=== PATIENT | male | born 1955 | race Caucasian/White ===

== ENCOUNTER 2017-12-29 06:55 | Day surgery (SDC) | END 2017-12-29 16:16 | disposition home or self-care (01) ==

== ENCOUNTER 2018-03-21 13:10 | Day surgery (SDC) | END 2018-03-21 17:08 | disposition home or self-care (01) ==

== ENCOUNTER 2018-06-05 22:42 | Inpatient (IN) | payer BC ==
[~2018-06-05] VITALS: Ht 165.1 cm; Wt 69.2 kg
[2018-06-05 22:34] VITALS: PULSE 92
[~2018-06-05 22:42] MED LIST: AMLO2.5T78 PO; ASPI81TA52 PO; ATOR20TA38 PO; GEMF600T8 PO; INSU300I SQ; ISM20 PO; MESA800T2 PO; METO-336 PO; METO10PO MC; PANT40TA3 PO
[2018-06-05 22:45] VITALS: BP 146/65; PULSE 89; RESP 18
[2018-06-05 23:06] VITALS: Ht 165.1 cm; Wt 69.2 kg
[2018-06-05] MEDS ORDERED: morphine 4 MG/ML VIAL IV STA (23:52)
--- NOTE | 2018-06-05 23:56 | HP ---
Date/Time of Note Date/Time of Note DATE: 06/05/18 TIME: 23:56 Assessment/Plan VTE Prophylaxis SCD applied (from Nsg): Yes Pharmacological prophylaxis: NA/contraindicated Pharm contraindication: other (Patient was exacerbation of ulcerative colitis. No blood thinner for now given the risk of bleeding) Assessment/Plan Assessment/Plan 1. Abdominal pain, diarrhea and vomiting, most likely secondary to UC flare-up -Keep n.p.o. with IV fluid. Patient however constantly asking to eat saying hungry -Empirically start IV antibiotic -Continue mesalamine -CT at outside facility as mentioned in the HPI. Will consult GI for colonoscopy 2. CAD with CABG: Continue home meds 3. Hypertension: BP was in acceptable range. Continue home meds when no longer n.p.o. 4. History of large hemorrhoid: No rectal bleed HPI/ROS Admit Date/Time Admit Date/Time Jun 05, 2018 at 22:43 Hx of Present Illness This is a 63-year-old male with a history of hypertension, CAD with CABG, ulcerative colitis, large fibroid who initially presented to [facility] complaining of abdominal pain, diarrhea and vomiting for about 1 week. Diarrhea is watery for the most part and is nonbloody. At the outside facility CT shows marked irregular thickening of the proximal and mid ascending colon as well as enlarged mesenteric lymph nodes no findings suspicious for neoplasm. Lab shows hypokalemia and hemoglobin of 11.8 otherwise CBC and CMP including liver chemistries and lipase WNL. Patient was transferred to [facility] for insurance reasons. PMH/Family/Social Past Medical History Medical History: other (See HPI) Medications Current Medications Morphine Sulfate (morphine) 3 mg ONCE STAT IV ; Start 06/05/18 at 23:52; Stop 06/05/18 at 23:53; Status UNV Coded Allergies: No Known Allergy (Unverified , 03/21/18) Past Surgical History Past Surgical Hx: other (HPI) Family History Significant Family History: no pertinent family hx Social History Alcohol Use: other Smoking Status: Former smoker Drug Use: none Exam/Review of Systems Vital Signs Vitals Vital Signs Date Temp Pulse Resp B/P (MAP) Pulse Ox O2 O2 Flow FiO2 Time Delivery Rate 06/05/18 92 22:34 Exam Constitutional: other (No acute distress) Head: normocephalic, atraumatic Eyes: PERRL Respiratory: clear to auscultation, normal air movement Cardiovascular: regular rate and rhythm, nl pulses Gastrointestinal: soft, other Extremities: normal pulses PATRICK KHAN MD Jun 05, 2018 23:56
[2018-06-06] VITALS (12 sets, daily range): BP systolic 98–133; BP diastolic 52–62; PULSE 63–95; RESP 16–79
[2018-06-06] MEDS ORDERED: HYDROCODONE/APAP (5/325) TAB PO PRN
[2018-06-06] MEDS ORDERED: ONDANSETRON 4 MG INJ IV PRN
[2018-06-06] MEDS ORDERED: ACETAMINOPHEN 325 MG TAB PO PRN
[2018-06-06] MEDS ORDERED: NACL 0.9% 3 ML SYG IV SCH
[2018-06-06] MEDS ORDERED: GLUCOSE GEL 15 GRAM TUBE BUCCAL PRN (00:30)
[2018-06-06] MEDS ORDERED: DEXTROSE 50% 50 ML SYRINGE IV PRN ×2 (00:30)
[2018-06-06] MEDS ORDERED: GLUCAGON 1 MG INJ IM PRN (00:30)
[2018-06-06] MEDS ORDERED: GLUCOSE GEL 15 GRAM TUBE PO PRN ×2 (00:30)
[2018-06-06] MEDS: ACCU-CHEK XX SCH (01:47)
[2018-06-06] MEDS ORDERED: POTASSIUM CHLORIDE (SR) 20 MEQ TAB PO STA (02:19)
--- NOTE | 2018-06-06 07:00 | NUR ---
RN END OF SHIFT NOTE PATIENT ALERT AND ORIENTED X 4, PAIN CONTROLLED WITH MORPHINE 3MG IVP X 1, AMBULATORY WITH STEADY GAIT. PATIENT HAD 4 BOWEL MOVEMENTS ON MY SHIFT, PLACED IN ISOLATION TO R/O C-DIFF. BED IN THE LOWEST POSITION WITH BRAKES ENGAGED. HOURLY ROUNDING AND BED ALARM IN PLACE. ENDORSED TO DAY SHIFT RN.
[2018-06-06] MEDS: INSULIN ASPART [NOVOLOG] 3 ML PEN SC SCH ×4 (08:00→21:34)
[2018-06-06] MEDS: AMLODIPINE 2.5 MG TAB PO SCH (08:37)
[2018-06-06] MEDS: ISOSORBIDE MONONITRATE 20 MG TAB PO SCH (08:37)
[2018-06-06] MEDS: GEMFIBROZIL 600 MG TAB PO SCH ×2 (08:38→21:25)
[2018-06-06] MEDS: METOPROLOL (XL) 100 MG TAB PO SCH (08:38)
[2018-06-06] MEDS: ASPIRIN (EC) 81 MG TAB PO SCH (08:38)
[2018-06-06] MEDS ORDERED: FAMOTIDINE 20 MG INJ IV SCH (09:00)
--- NOTE | 2018-06-06 11:41 | PN ---
Date/Time of Note Date/Time of Note DATE: 06/06/18 TIME: 11:41 Assessment/Plan VTE Prophylaxis Risk score (from Ns)>0 risk: 3 SCD applied (from Ns): No SCD contraindicated: other Pharmacological prophylaxis: other Lines/Catheters IV [facility]from [facility] [place] Assessment/Plan Hospital Course SUBJECTIVE: Complains of minimal abdominal pain. OBJECTIVE: Physical Exam General: Adequately build 63 year-old male lying in bed in no apparent distress. HEENT: Normocephalic, atraumatic. Eyes: Anicteric sclerae, conjunctivae clear. ENT: Nasal septum midline, oral mucosa moist. Neck supple, no JVD noticed. Respiratory: Bilaterally clear breath sounds. No use of accessory muscles of respiration. No adventitious breath sounds. Cardiovascular: S1, S2 heard. Regular rate and rhythm. Abdomen: Soft, nontender, and nondistended. Bowel sounds positive in all 4 quadrants. Genitourinary: Deferred. Extremities: No cyanosis, no clubbing, no edema. Peripheral pulses palpable. Neurologic: Cranial nerves II through XII grossly intact. The patient is awake, alert, and oriented. Skin: Normal skin turgor. No skin rashes. Labs & Vitals per chart ASSESSMENT & PLAN This is a 63-year-old male with comorbidities including hypertension, CAD status post CABG, ulcerative colitis, and diabetes mellitus, who came to the emergency room with chief complaint of abdominal pain, diarrhea, and vomiting for 1 week. The patient was evaluated at an outside emergency room with a CT scan that showed markedly irregular thickening of the proximal and mid ascending colon as well as enlarged mesenteric lymph nodes. The patient was transferred to [facility] for further evaluation because of insurance reasons. 1. Abdominal pain. -Most probably secondary to underlying UC flareup. -Continue mesalamine. -Start steroids. -Gastroenterology evaluation. 2. Essential hypertension. -Continue antihypertensives. 3. Diabetes mellitus. -Hemoglobin A1c 6.1. -Continue sliding scale insulin. 4. History of CAD. -Continue aspirin. 5. Dyslipidemia. -Continue statin and fibrates. 6. Anemia. -Microcytic and hypochromic. -Obtain iron panel. 7. Fluids, electrolytes, and nutrition. -Carbohydrate controlled diet. 8. DVT prophylaxis. -Bilateral SCDs. 9. Plan. -Continue current management. -Await clinical improvement. -Await gastroenterology evaluation. Patient was seen in collaboration with Dr. Fuentes. Result Diagram: 06/06/18 0044 06/06/18 0044 Results 24hrs Laboratory Tests Test 06/06/18 00:44 06/06/18 01:46 06/06/18 08:00 06/06/18 11:31 White Blood Count 6.5 Red Blood Count 4.61 L Hemoglobin 10.2 L Hematocrit 32.8 L Mean Corpuscular 71.1 L Volume Mean Corpuscular 22.1 L Hemoglobin Mean Corpuscular 31.1 L Hemoglobin Concent Red Cell 16.7 H Distribution Width Platelet Count 101 L Mean Platelet Volume 10.5 H Immature 1.200 H Granulocytes % Neutrophils % 62.7 Lymphocytes % 22.2 Monocytes % 12.0 H Eosinophils % 1.4 Basophils % 0.5 Nucleated Red Blood 0.0 Cells % Immature 0.080 H Granulocytes # Neutrophils # 4.1 Lymphocytes # 1.5 Monocytes # 0.8 Eosinophils # 0.1 Basophils # 0.0 Nucleated Red Blood 0.0 Cells # Sodium Level 136 Potassium Level 3.2 L Chloride Level 103 Carbon Dioxide Level 20 L Anion Gap 13 Blood Urea Nitrogen 14 Creatinine 0.77 Est Glomerular > 60 Filtrat Rate mL/min Glucose Level 89 Hemoglobin A1c 6.1 H Calcium Level 8.4 Total Bilirubin 0.2 Direct Bilirubin 0.00 Indirect Bilirubin 0.2 Aspartate Amino 14 L Transf (AST/SGOT) Alanine 17 Aminotransferase (AL T/SGPT) Alkaline Phosphatase 108 Total Protein 6.8 Albumin 3.4 Globulin 3.40 H Albumin/Globulin 1.00 Ratio Lipase 156 Bedside Glucose 92 131 119 Exam/Review of Systems Vital Signs Vitals Vital Signs Date Temp Pulse Resp B/P (MAP) Pulse Ox O2 O2 Flow FiO2 Time Delivery Rate 06/06/18 80 08:00 06/06/18 97.7 79 119/62 96 Room Air 07:51 (81) Intake and Output 06/05/18 06/05/18 06/06/18 1515:00 23:00 07:00 IntakeIntake Total 500 ml BalanceBalance 500 ml Medications Medications Current Medications IV Flush (NS 3 ml) 3 ml PER PROTOCOL IV ; Start 06/06/18 at 00:00 Ondansetron HCl (Zofran Inj) 4 mg Q6H PRN IV NAUSEA AND/OR VOMITING; Start 06/06/18 at 00:00 Acetaminophen (Tylenol Tab) 650 mg Q6H PRN PO PAIN LEVEL 1-3 OR FEVER; Start 06/06/18 at 00:00 Acetaminophen/ Hydrocodone Bitart ([place] (5/325)) 1 tab Q6H PRN PO PAIN LEVEL 4-6; Start 06/06/18 at 00:00 Acetaminophen/ Hydrocodone Bitart ([place] (5/325)) 2 tab Q6H PRN PO PAIN LEVEL 7-10; Start 06/06/18 at 00:00 Amlodipine Besylate (Norvasc) 2.5 mg DAILY PO Last administered on 06/06/18at 08:37; Admin Dose 2.5 MG; Start 06/06/18 at 09:00 Aspirin (Halfprin) 81 mg DAILY PO Last administered on 06/06/18at 08:38; Admin Dose 81 MG; Start 06/06/18 at 09:00 Atorvastatin Calcium (Lipitor) 20 mg QHS PO ; Start 06/06/18 at 21:00 Gemfibrozil (Lopid) 600 mg BID PO Last administered on 06/06/18at 08:38; Admin Dose 600 MG; Start 06/06/18 at 09:00 Isosorbide Mononitrate (Ismo) 20 mg DAILY PO Last administered on 06/06/18at 08:37; Admin Dose 20 MG; Start 06/06/18 at 09:00 Metoprolol Succinate (Toprol Xl) 100 mg DAILY PO Last administered on 06/06/18at 08:38; Admin Dose 100 MG; Start 06/06/18 at 09:00 Diagnostic Test (Pha) (Accu-Chek) 1 ea 02 XX Last administered on 06/06/18at 01:47; Admin Dose 1 EA; Start 06/06/18 at 02:00 Insulin Aspart (Novolog Insulin Pen) NOVOLOG *MILD* ALGORITHM WITH MEALS BEDTIME SC ; Start 06/06/18 at 08:00 Miscellaneous Information 1 ea NOTE XX ; Start 06/06/18 at 00:30 Glucose (Glutose) 15 gm Q15M PRN PO DECREASED GLUCOSE; Start 06/06/18 at 00:30 Glucose (Glutose) 22.5 gm Q15M PRN PO DECREASED GLUCOSE; Start 06/06/18 at 00:30 Dextrose (D50w Syringe) 25 ml Q15M PRN IV DECREASED GLUCOSE; Start 06/06/18 at 00:30 Dextrose (D50w Syringe) 50 ml Q15M PRN IV DECREASED GLUCOSE; Start 06/06/18 at 00:30 Glucagon (Glucagen) 1 mg Q15M PRN IM DECREASED GLUCOSE; Start 06/06/18 at 00:30 Glucose (Glutose) 15 gm Q15M PRN BUCCAL DECREASED GLUCOSE; Start 06/06/18 at 00:30 REILLY PANTOJA NP Jun 06, 2018 11:41
--- NOTE | 2018-06-06 12:50 | CONS ---
Date/Time of Note Date/Time of Note DATE: 06/06/18 TIME: 12:50 Assessment/Plan Assessment/Plan Hospital Course Summary Assessment and Plan: Assessment: UC- flare vs other -CDIFF neg Acute on chronic nausea/vomiting CAD HTN DM History of EGD/colonoscopy 04/03- at [facility]- reports in system History of Gastroparesis Plan: Will order CEA, CRP, ESR Patient has been started on Steroid therapy Restart mesalamine Diet as tolerated Further recommendations based on clinical course Currently no plan to repeat colonoscopy. Anti-emetic meds as needed Patient seen in collaboration with Dr. Sarabia Result Diagram: 06/06/18 0044 06/06/18 0044 Results 24hrs Laboratory Tests Test 06/06/18 00:44 06/06/18 01:46 06/06/18 08:00 06/06/18 11:31 White Blood Count 6.5 Red Blood Count 4.61 L Hemoglobin 10.2 L Hematocrit 32.8 L Mean Corpuscular 71.1 L Volume Mean Corpuscular 22.1 L Hemoglobin Mean Corpuscular 31.1 L Hemoglobin Concent Red Cell 16.7 H Distribution Width Platelet Count 101 L Mean Platelet Volume 10.5 H Immature 1.200 H Granulocytes % Neutrophils % 62.7 Lymphocytes % 22.2 Monocytes % 12.0 H Eosinophils % 1.4 Basophils % 0.5 Nucleated Red Blood 0.0 Cells % Immature 0.080 H Granulocytes # Neutrophils # 4.1 Lymphocytes # 1.5 Monocytes # 0.8 Eosinophils # 0.1 Basophils # 0.0 Nucleated Red Blood 0.0 Cells # Sodium Level 136 Potassium Level 3.2 L Chloride Level 103 Carbon Dioxide Level 20 L Anion Gap 13 Blood Urea Nitrogen 14 Creatinine 0.77 Est Glomerular > 60 Filtrat Rate mL/min Glucose Level 89 Hemoglobin A1c 6.1 H Calcium Level 8.4 Total Bilirubin 0.2 Direct Bilirubin 0.00 Indirect Bilirubin 0.2 Aspartate Amino 14 L Transf (AST/SGOT) Alanine 17 Aminotransferase (AL T/SGPT) Alkaline Phosphatase 108 Total Protein 6.8 Albumin 3.4 Globulin 3.40 H Albumin/Globulin 1.00 Ratio Lipase 156 Bedside Glucose 92 131 119 CC: MIRI SARABIA ; Consultation Date/Type/Reason Admit Date/Time Jun 05, 2018 at 22:43 Date of Consultation: Jun 06, 2018 Type of Consult GI Reason for Consultation Diarrhea Hx of Present Illness This a 63-year-old male past medical history of coronary artery disease, hypertension, diabetes who presented to [facility] with complaints of vomiting and diarrhea x6 days at that time he denied any abdominal pain. CT abdomen/pelvis without contrast was obtained at [facility] showing marked irregular thickening of the wall the proximal and mid ascending colon, enlarged mesenteric nodes are seen along the ascending mesocolon as well as centrally within the mesentery these findings are suspicious for neoplasm. #1 seen stable patient was transferred to [facility] for insurance reasons. He is status post EGD 03/21/18 showing gastroparesis with re tained partial digested food in the stomach, moderate gastritis biopsies obtained were negative for H. pylori biopsies are copied down below . Also status post colonoscopy 03/21/18 showing moderately active left-sided ulcerative colitis, one similar flat polypoid area in the proximal rectum biopsies were obtained, moderate-sized internal hemorrhoids gastric biopsy showed gastritis without dysplasia, or malignancy, Gram stain is negative for H. pylori. Right colon biopsy is histopathologically unremarkable. Left colon biopsy shows mild to moderate active colitis focal summary histomorphologic features suggestive of chronic disease means are considered most suggestive of active ulcerative co litis, no evidence for associated mucosal dysplasia or malignancy. Rectum biopsy shows mild active proctocolitis with established histomorphologic findings of IBD, rectum polyp biopsy shows inflammatory type polyp without evidence of dysplasia or malignancy. Currently patient continues to have 6+ episodes of diarrhea per day, nausea has improved however this is more of a chronic issue given history of gastroparesis we would consider starting Reglan however the side effect of diarrhea will hold off at this time. Been started on steroid therapy we will continue current regimen and assess need to make changes per clinical course.. Review of Systems: A 12 system, review was conducted and is negative except as noted in the HPI or here. Past Medical History Medical History: other (See HPI) Medications Current Medications IV Flush (NS 3 ml) 3 ml PER PROTOCOL IV ; Start 06/06/18 at 00:00 Ondansetron HCl (Zofran Inj) 4 mg Q6H PRN IV NAUSEA AND/OR VOMITING; Start 06/06/18 at 00:00 Acetaminophen (Tylenol Tab) 650 mg Q6H PRN PO PAIN LEVEL 1-3 OR FEVER; Start 06/06/18 at 00:00 Acetaminophen/ Hydrocodone Bitart ([place] (5/325)) 1 tab Q6H PRN PO PAIN LEVEL 4-6; Start 06/06/18 at 00:00 Acetaminophen/ Hydrocodone Bitart ([place] (5/325)) 2 tab Q6H PRN PO PAIN LEVEL 7-10; Start 06/06/18 at 00:00 Amlodipine Besylate (Norvasc) 2.5 mg DAILY PO Last administered on 06/06/18at 08:37; Admin Dose 2.5 MG; Start 06/06/18 at 09:00 Aspirin (Halfprin) 81 mg DAILY PO Last administered on 06/06/18at 08:38; Admin Dose 81 MG; Start 06/06/18 at 09:00 Atorvastatin Calcium (Lipitor) 20 mg QHS PO ; Start 06/06/18 at 21:00 Gemfibrozil (Lopid) 600 mg BID PO Last administered on 06/06/18at 08:38; Admin Dose 600 MG; Start 06/06/18 at 09:00 Isosorbide Mononitrate (Ismo) 20 mg DAILY PO Last administered on 06/06/18at 08:37; Admin Dose 20 MG; Start 06/06/18 at 09:00 Metoprolol Succinate (Toprol Xl) 100 mg DAILY PO Last administered on 06/06/18at 08:38; Admin Dose 100 MG; Start 06/06/18 at 09:00 Diagnostic Test (Pha) (Accu-Chek) 1 ea 02 XX Last administered on 06/06/18at 01:47; Admin Dose 1 EA; Start 06/06/18 at 02:00 Insulin Aspart (Novolog Insulin Pen) NOVOLOG *MILD* ALGORITHM WITH MEALS BEDTIME SC ; Start 06/06/18 at 08:00 Miscellaneous Information 1 ea NOTE XX ; Start 06/06/18 at 00:30 Glucose (Glutose) 15 gm Q15M PRN PO DECREASED GLUCOSE; Start 06/06/18 at 00:30 Glucose (Glutose) 22.5 gm Q15M PRN PO DECREASED GLUCOSE; Start 06/06/18 at 00:30 Dextrose (D50w Syringe) 25 ml Q15M PRN IV DECREASED GLUCOSE; Start 06/06/18 at 00:30 Dextrose (D50w Syringe) 50 ml Q15M PRN IV DECREASED GLUCOSE; Start 06/06/18 at 00:30 Glucagon (Glucagen) 1 mg Q15M PRN IM DECREASED GLUCOSE; Start 06/06/18 at 00:30 Glucose (Glutose) 15 gm Q15M PRN BUCCAL DECREASED GLUCOSE; Start 06/06/18 at 00:30 Methylprednisolone Sodium Succinate (Solu-Medrol) 20 mg Q8 IV ; Start 06/06/18 at 14:00 Pantoprazole (Protonix Tab) 40 mg BID@06,18 PO ; Start 06/06/18 at 18:00 Allergies: Coded Allergies: No Known Allergy (Unverified , 03/21/18) Past Surgical History Past Surgical Hx: other (HPI) Social History Alcohol Use: other Smoking Status: Former smoker Drug Use: none Exam/Review of Systems Vital Signs Vitals Vital Signs Date Temp Pulse Resp B/P (MAP) Pulse Ox O2 O2 Flow FiO2 Time Delivery Rate 06/06/18 80 12:00 06/06/18 98.2 16 110/56 96 Room Air 11:41 (74) Intake and Output 06/05/18 06/05/18 06/06/18 1515:00 23:00 07:00 IntakeIntake Total 500 ml BalanceBalance 500 ml Exam PHYSICAL EXAMINATION: GENERAL: Well developed, well nourished, alert & oriented x 3, in no acute distress SKIN: No lesions EYES: Pupils equal reactive to light, no discharge. EARS/NOSE AND THROAT: Ears normal, nose normal, oropharynx normal NECK: Supple, no masses CHEST: Inspection within normal limits. CARDIOVASCULAR: Heart: Regular rate and rhythm RESPIRATORY: Lungs clear to auscultation GASTROINTESTINAL AND LIVER: Abdomen: Soft, non tenderness, non-distended, no hernias, no masses, no organomegaly, no ascites, no guarding, no rebound tenderness, normoactive bowel sounds. Rectal: Deferred. GENITOURINARY: Not examined Medications Medications Current Medications IV Flush (NS 3 ml) 3 ml PER PROTOCOL IV ; Start 06/06/18 at 00:00 Ondansetron HCl (Zofran Inj) 4 mg Q6H PRN IV NAUSEA AND/OR VOMITING; Start 06/06/18 at 00:00 Acetaminophen (Tylenol Tab) 650 mg Q6H PRN PO PAIN LEVEL 1-3 OR FEVER; Start 06/06/18 at 00:00 Acetaminophen/ Hydrocodone Bitart ([place] (5/325)) 1 tab Q6H PRN PO PAIN LEVEL 4-6; Start 06/06/18 at 00:00 Acetaminophen/ Hydrocodone Bitart ([place] (5/325)) 2 tab Q6H PRN PO PAIN LEVEL 7-10; Start 06/06/18 at 00:00 Amlodipine Besylate (Norvasc) 2.5 mg DAILY PO Last administered on 06/06/18at 08 :37; Admin Dose 2.5 MG; Start 06/06/18 at 09:00 Aspirin (Halfprin) 81 mg DAILY PO Last administered on 06/06/18at 08:38; Admin Dose 81 MG; Start 06/06/18 at 09:00 Atorvastatin Calcium (Lipitor) 20 mg QHS PO ; Start 06/06/18 at 21:00 Gemfibrozil (Lopid) 600 mg BID PO Last administered on 06/06/18at 08:38; Admin Dose 600 MG; Start 06/06/18 at 09:00 Isosorbide Mononitrate (Ismo) 20 mg DAILY PO Last administered on 06/06/18at 08:37; Admin Dose 20 MG; Start 06/06/18 at 09:00 Metoprolol Succinate (Toprol Xl) 100 mg DAILY PO Last administered on 06/06/18at 08:38; Admin Dose 100 MG; Start 06/06/18 at 09:00 Diagnostic Test (Pha) (Accu-Chek) 1 ea 02 XX Last administered on 06/06/18at 01:47; Admin Dose 1 EA; Start 06/06/18 at 02:00 Insulin Aspart (Novolog Insulin Pen) NOVOLOG *MILD* ALGORITHM WITH MEALS BEDTIME SC ; Start 06/06/18 at 08:00 Miscellaneous Information 1 ea NOTE XX ; Start 06/06/18 at 00:30 Glucose (Glutose) 15 gm Q15M PRN PO DECREASED GLUCOSE; Start 06/06/18 at 00:30 Glucose (Glutose) 22.5 gm Q15M PRN PO DECREASED GLUCOSE; Start 06/06/18 at 00:30 Dextrose (D50w Syringe) 25 ml Q15M PRN IV DECREASED GLUCOSE; Start 06/06/18 at 00:30 Dextrose (D50w Syringe) 50 ml Q15M PRN IV DECREASED GLUCOSE; Start 06/06/18 at 00:30 Glucagon (Glucagen) 1 mg Q15M PRN IM DECREASED GLUCOSE; Start 06/06/18 at 00:30 Glucose (Glutose) 15 gm Q15M PRN BUCCAL DECREASED GLUCOSE; Start 06/06/18 at 00:30 Methylprednisolone Sodium Succinate (Solu-Medrol) 20 mg Q8 IV ; Start 06/06/18 at 14:00 Pantoprazole (Protonix Tab) 40 mg BID@06,18 PO ; Start 06/06/18 at 18:00 DAREN MCKNIGHT Jun 06, 2018 12:50
[2018-06-06] MEDS: METHYLPREDNISOLONE 40 MG INJ IV SCH ×2 (13:23→21:26)
[2018-06-06] MEDS: MESALAMINE (EC) 400 MG CAP PO SCH ×2 (16:28→21:25)
[2018-06-06] MEDS: PANTOPRAZOLE (EC) 40 MG TAB PO SCH (17:20)
--- NOTE | 2018-06-06 18:20 | NUR ---
END OF SHIFT REPORT: C. diff test came back negative and patient was taken off of precautionary contact isolation. MD aware. Patient has no new complaints. Still with loose stools but less today according to patient. VSS. Medical plan of care discussed by MD with son and patient. Both verbalized understanding and is agreeable with plans.
[2018-06-06] MEDS: ATORVASTATIN 20 MG TAB PO SCH (21:25)
[2018-06-06] MEDS: HYDROCODONE/APAP (5/325) TAB PO PRN (22:52)
[2018-06-07] VITALS (11 sets, daily range): BP systolic 111–140; BP diastolic 60–68; PULSE 57–71; RESP 16–18
[2018-06-07] MEDS: ACCU-CHEK XX SCH (02:22)
[2018-06-07] MEDS: METHYLPREDNISOLONE 40 MG INJ IV SCH ×3 (06:01→21:40)
[2018-06-07] MEDS: PANTOPRAZOLE (EC) 40 MG TAB PO SCH ×2 (06:04→17:23)
--- NOTE | 2018-06-07 06:48 | NUR ---
RN END OF SHIFT NOTE PATIENT ALERT AND ORIENTED X 4, PAIN CONTROLLED WITH [place] 2 TABS PO X 1, AMBULATORY WITH STEADY GAIT. PATIENT HAD 4 BOWEL MOVEMENTS, AND 4 VOIDS ON MY SHIFT, PATIENT ABLE TO MAKE NEEDS KNOWN, AND INSTRUCTED TO CALL FOR HELP. CALL LIGHT AND PERSONAL ITEMS PLACED WITHIN EASY REACH, BED IN THE LOWEST POSITION WITH BRAKES ENGAGED. HOURLY ROUNDING AND BED ALARM IN PLACE. WILL ENDORSE TO DAY SHIFT RN.
[2018-06-07] MEDS: INSULIN ASPART [NOVOLOG] 3 ML PEN SC SCH ×4 (08:02→21:44)
[2018-06-07] MEDS: MESALAMINE (EC) 400 MG CAP PO SCH ×3 (08:43→21:39)
[2018-06-07] MEDS: AMLODIPINE 2.5 MG TAB PO SCH (08:44)
[2018-06-07] MEDS: ISOSORBIDE MONONITRATE 20 MG TAB PO SCH (08:45)
[2018-06-07] MEDS: GEMFIBROZIL 600 MG TAB PO SCH ×2 (08:45→21:40)
[2018-06-07] MEDS: METOPROLOL (XL) 100 MG TAB PO SCH (08:45)
[2018-06-07] MEDS: ASPIRIN (EC) 81 MG TAB PO SCH (08:45)
--- NOTE | 2018-06-07 10:06 | PN ---
Date/Time of Note Date/Time of Note DATE: 06/07/18 TIME: 10:04 Assessment/Plan VTE Prophylaxis Risk score (from Ns)>0 risk: 3 SCD applied (from Ns): No SCD contraindicated: other Pharmacological prophylaxis: other Lines/Catheters IV Catheter Type (from [facility] Saline Lock Assessment/Plan Hospital Course SUBJECTIVE: Complains of minimal abdominal pain. OBJECTIVE: Physical Exam General: Adequately build 63 year-old male lying in bed in no apparent distress. HEENT: Normocephalic, atraumatic. Eyes: Anicteric sclerae, conjunctivae clear. ENT: Nasal septum midline, oral mucosa moist. Neck supple, no JVD noticed. Respiratory: Bilaterally clear breath sounds. No use of accessory muscles of respiration. No adventitious breath sounds. Cardiovascular: S1, S2 heard. Regular rate and rhythm. Abdomen: Soft, nontender, and nondistended. Bowel sounds positive in all 4 quadrants. Genitourinary: Deferred. Extremities: No cyanosis, no clubbing, no edema. Peripheral pulses palpable. Neurologic: Cranial nerves II through XII grossly intact. The patient is awake, alert, and oriented. Skin: Normal skin turgor. No skin rashes. Labs & Vitals per chart ASSESSMENT & PLAN This is a 63-year-old male with comorbidities including hypertension, CAD status post CABG, ulcerative colitis, and diabetes mellitus, who came to the emergency room with chief complaint of abdominal pain, diarrhea, and vomiting for 1 week. The patient was evaluated at an outside emergency room with a CT scan that showed markedly irregular thickening of the proximal and mid ascending colon as well as enlarged mesenteric lymph nodes. The patient was transferred to [facility] for further evaluation because of insurance reasons. 1. Abdominal pain. -Most probably secondary to underlying UC flareup. -Stool for C. diff negative. -Continue mesalamine. -Continue steroids. -Gastroenterology evaluation ongoing. 2. Essential hypertension. -Continue antihypertensives. 3. Diabetes mellitus. -Hemoglobin A1c 6.1. -Continue sliding scale insulin. 4. History of CAD. -Continue aspirin. 5. Dyslipidemia. -Continue statin and fibrates. 6. Anemia. -Microcytic and hypochromic. -Iron panel showing low iron and low iron saturation with normal ferritin and normal TIBC. 7. Fluids, electrolytes, and nutrition. -Carbohydrate controlled diet. 8. DVT prophylaxis. -Bilateral SCDs. 9. Plan. -Continue current management. -Await clinical improvement. -Transfer the patient to Med/Surg. The patient was seen in collaboration with Dr. Fuentes. Result Diagram: 06/07/18 0455 06/07/18 0455 Results 24hrs Laboratory Tests Test 06/06/18 11:31 06/06/18 17:02 06/06/18 21:23 06/07/18 02:15 Bedside Glucose 119 196 209 195 Test 06/07/18 04:55 06/07/18 07:32 White Blood Count 5.9 Red Blood Count 4.45 L Hemoglobin 9.7 L Hematocrit 31.4 L Mean Corpuscular 70.6 L Volume Mean Corpuscular 21.8 L Hemoglobin Mean Corpuscular 30.9 L Hemoglobin Concent Red Cell 17.1 H Distribution Width Platelet Count 229 # Mean Platelet Volume 10.4 Immature 2.200 H Granulocytes % Neutrophils % Segmented 63 Neutrophils % (Manual) Band Neutrophils % 18 H (Manual) Lymphocytes % Lymphocytes % 12 L (Manual) Reactive Lymphocytes 5 H % (Manual) Monocytes % Monocytes % (Manual) 1 Eosinophils % Basophils % Myelocytes % 1 H (Manual) Nucleated Red Blood 0.0 Cells % Immature 0.130 H Granulocytes # Neutrophils # Neutrophils # 3.8 (Manual) Band Neutrophils # 1.0 H Lymphocytes (Manual) 0.7 L Lymphocytes # Reactive Lymphocytes 0.2 H # Monocytes # Monocytes # (Manual) 0.0 L Eosinophils # Basophils # Myelocytes # 0.0 Nucleated Red Blood Cells # Toxic Granulation 1+ Platelet Estimate NORMAL Polychromasia 1+ Poikilocytosis 2+ Anisocytosis 1+ Microcytosis 1+ Ovalocytes 1+ Erythrocyte 40 H Sedimentation Rate Sodium Level 138 Potassium Level 4.2 Chloride Level 106 Carbon Dioxide Level 23 Anion Gap 9 Blood Urea Nitrogen 10 Creatinine 0.79 Est Glomerular > 60 Filtrat Rate mL/min Glucose Level 185 Calcium Level 9.0 Phosphorus Level 2.7 Magnesium Level 1.8 Iron Level 20 L Total Iron Binding 299 Capacity Percent Iron 7 L Saturation Ferritin 26.0 Total Bilirubin 0.0 L Direct Bilirubin 0.00 Indirect Bilirubin 0.0 Aspartate Amino 15 Transf (AST/SGOT) Alanine 18 Aminotransferase (AL T/SGPT) Alkaline Phosphatase 110 C-Reactive Protein 6.8 H Total Protein 6.7 Albumin 3.4 Globulin 3.30 H Albumin/Globulin 1.03 Ratio Carcinoembryonic 2.2 Antigen Bedside Glucose 188 Exam/Review of Systems Vital Signs Vitals Vital Signs Date Temp Pulse Resp B/P (MAP) Pulse Ox O2 O2 Flow FiO2 Time Delivery Rate 06/07/18 97.4 69 16 132/68 95 Room Air 08:06 (89) Intake and Output 06/06/18 06/06/18 06/07/18 1414:59 22:59 06:59 IntakeIntake Total 920 ml 500 ml BalanceBalance 920 ml 500 ml Medications Medications Current Medications IV Flush (NS 3 ml) 3 ml PER PROTOCOL IV ; Start 06/06/18 at 00:00 Ondansetron HCl (Zofran Inj) 4 mg Q6H PRN IV NAUSEA AND/OR VOMITING; Start 06/06/18 at 00:00 Acetaminophen (Tylenol Tab) 650 mg Q6H PRN PO PAIN LEVEL 1-3 OR FEVER; Start 06/06/18 at 00:00 Acetaminophen/ Hydrocodone Bitart ([place] (5/325)) 1 tab Q6H PRN PO PAIN LEVEL 4-6; Start 06/06/18 at 00:00 Acetaminophen/ Hydrocodone Bitart ([place] (5/325)) 2 tab Q6H PRN PO PAIN LEVEL 7-10 Last administered on 06/06/18at 22:52; Admin Dose 2 TAB; Start 06/06/18 at 00:00 Amlodipine Besylate (Norvasc) 2.5 mg DAILY PO Last administered on 06/07/18at 08:44; Admin Dose 2.5 MG; Start 06/06/18 at 09:00 Aspirin (Halfprin) 81 mg DAILY PO Last administered on 06/07/18 08:45; Admin Dose 81 MG; Start 06/06/18 at 09:00 Atorvastatin Calcium (Lipitor) 20 mg QHS PO Last administered on 06/06/18 21:25; Admin Dose 20 MG; Start 06/06/18 at 21:00 Gemfibrozil (Lopid) 600 mg BID PO Last administered on 06/07/18 08:45; Admin Dose 600 MG; Start 06/06/18 at 09:00 Isosorbide Mononitrate (Ismo) 20 mg DAILY PO Last administered on 06/07/18 08:45; Admin Dose 20 MG; Start 06/06/18 at 09:00 Metoprolol Succinate (Toprol Xl) 100 mg DAILY PO Last administered on 06/07/18at 08:45; Admin Dose 100 MG; Start 06/06/18 at 09:00 Diagnostic Test (Pha) (Accu-Chek) 1 ea 02 XX Last administered on 06/07/18at 02:22; Admin Dose 1 EA; Start 06/06/18 at 02:00 Insulin Aspart (Novolog Insulin Pen) NOVOLOG *MILD* ALGORITHM WITH MEALS BEDTIME SC Last administered on 06/07/18at 08:02; Admin Dose 2 UNIT; Start 06/06/18 at 08:00 Miscellaneous Information 1 ea NOTE XX ; Start 06/06/18 at 00:30 Glucose (Glutose) 15 gm Q15M PRN PO DECREASED GLUCOSE; Start 06/06/18 at 00:30 Glucose (Glutose) 22.5 gm Q15M PRN PO DECREASED GLUCOSE; Start 06/06/18 at 00:30 Dextrose (D50w Syringe) 25 ml Q15M PRN IV DECREASED GLUCOSE; Start 06/06/18 at 00:30 Dextrose (D50w Syringe) 50 ml Q15M PRN IV DECREASED GLUCOSE; Start 06/06/18 at 00:30 Glucagon (Glucagen) 1 mg Q15M PRN IM DECREASED GLUCOSE; Start 06/06/18 at 00:30 Glucose (Glutose) 15 gm Q15M PRN BUCCAL DECREASED GLUCOSE; Start 06/06/18 at 00:30 Methylprednisolone Sodium Succinate (Solu-Medrol) 20 mg Q8 IV Last administered on 06/07/18at 06:01; Admin Dose 20 MG; Start 06/06/18 at 14:00 Pantoprazole (Protonix Tab) 40 mg BID@06,18 PO Last administered on 06/07/18at 06:04; Admin Dose 40 MG; Start 06/06/18 at 18:00 Mesalamine (Delzicol Dr) 800 mg TID PO Last administered on 06/07/18at 08:43; Admin Dose 800 MG; Start 06/06/18 at 14:00 REILLY PANTOJA NP Jun 07, 2018 10:06
--- NOTE | 2018-06-07 14:27 | PN ---
Date/Time of Note Date/Time of Note DATE: 06/07/18 TIME: 14:24 Assessment/Plan VTE Prophylaxis Risk score (from Ns)>0 risk: 3 SCD applied (from Ns): No SCD contraindicated: other (scds) Pharmacological prophylaxis: other (scds) Lines/Catheters IV [facility]from [facility] Saline Lock Assessment/Plan Hospital Course Summary Assessment and Plan: Assessment: UC- flare- -CDIFF neg Acute on chronic nausea/vomiting- improved today Unintentional weight loss REBECCA CAD HTN DM History of EGD/colonoscopy 04/03- at [facility]- reports in system History of Gastroparesis Plan: Abd pain has resolved- pt still feels the urge have a bm every hour- seen in acute flare- Continue current regimen of Solu-Medrol/mesalamine Low residue diet, diabetic diet Continue PPI No plan for endoscopic evaluation at this time CRP/ESR- elevated as expected CEA- neg 2.2 Patient seen in collaboration with Dr. Orozco Subjective: Course reviewed with nursing staff Patient interviewed and examined All labs, imaging and other results reviewed The patient today denies any abd pain- states he does to the bathroom every hours- as he eels the urge to go. Has small amts of stool. No overt signs of GI bleed noted. Hgb is down from yesterday, Maintain close observation. PHYSICAL EXAMINATION: GENERAL: Well developed, well nourished, alert & oriented x 3, in no acute distress SKIN: No lesions EYES: Pupils equal reactive to light, no discharge. EARS/NOSE AND THROAT: Ears normal, nose normal, oropharynx normal NECK: Supple, no masses CHEST: Inspection within normal limits. CARDIOVASCULAR: Heart: Regular rate and rhythm RESPIRATORY: Lungs clear to auscultation GASTROINTESTINAL AND LIVER: Abdomen: Soft, non tenderness, non-distended, no hernias, no masses, no organomegaly, no ascites, no guarding, no rebound tenderness, normoactive bowel sounds. Rectal: Deferred. GENITOURINARY: Not examined Result Diagram: 06/07/18 0455 06/07/18 0455 Results 24hrs Laboratory Tests Test 06/06/18 17:02 06/06/18 21:23 06/07/18 02:15 06/07/18 04:55 Bedside Glucose 196 209 195 White Blood Count 5.9 Red Blood Count 4.45 L Hemoglobin 9.7 L Hematocrit 31.4 L Mean Corpuscular 70.6 L Volume Mean Corpuscular 21.8 L Hemoglobin Mean Corpuscular 30.9 L Hemoglobin Concent Red Cell 17.1 H Distribution Width Platelet Count 229 # Mean Platelet Volume 10.4 Immature 2.200 H Granulocytes % Neutrophils % Segmented 63 Neutrophils % (Manual) Band Neutrophils % 18 H (Manual) Lymphocytes % Lymphocytes % 12 L (Manual) Reactive Lymphocytes 5 H % (Manual) Monocytes % Monocytes % (Manual) 1 Eosinophils % Basophils % Myelocytes % 1 H (Manual) Nucleated Red Blood 0.0 Cells % Immature 0.130 H Granulocytes # Neutrophils # Neutrophils # 3.8 (Manual) Band Neutrophils # 1.0 H Lymphocytes (Manual) 0.7 L Lymphocytes # Reactive Lymphocytes 0.2 H # Monocytes # Monocytes # (Manual) 0.0 L Eosinophils # Basophils # Myelocytes # 0.0 Nucleated Red Blood Cells # Toxic Granulation 1+ Platelet Estimate NORMAL Polychromasia 1+ Poikilocytosis 2+ Anisocytosis 1+ Microcytosis 1+ Ovalocytes 1+ Erythrocyte 40 H Sedimentation Rate Sodium Level 138 Potassium Level 4.2 Chloride Level 106 Carbon Dioxide Level 23 Anion Gap 9 Blood Urea Nitrogen 10 Creatinine 0.79 Est Glomerular > 60 Filtrat Rate mL/min Glucose Level 185 Calcium Level 9.0 Phosphorus Level 2.7 Magnesium Level 1.8 Iron Level 20 L Total Iron Binding 299 Capacity Percent Iron 7 L Saturation Ferritin 26.0 Total Bilirubin 0.0 L Direct Bilirubin 0.00 Indirect Bilirubin 0.0 Aspartate Amino 15 Transf (AST/SGOT) Alanine 18 Aminotransferase (AL T/SGPT) Alkaline Phosphatase 110 C-Reactive Protein 6.8 H Total Protein 6.7 Albumin 3.4 Globulin 3.30 H Albumin/Globulin 1.03 Ratio Carcinoembryonic 2.2 Antigen Test 06/07/18 07:32 06/07/18 11:45 Bedside Glucose 188 215 Exam/Review of Systems Vital Signs Vitals Vital Signs Date Temp Pulse Resp B/P (MAP) Pulse Ox O2 O2 Flow FiO2 Time Delivery Rate 06/07/18 62 12:00 06/07/18 97.4 16 114/60 95 Room Air 11:42 (78) Intake and Output 06/06/18 06/06/18 06/07/18 1414:59 22:59 06:59 IntakeIntake Total 920 ml 500 ml BalanceBalance 920 ml 500 ml Medications Medications Current Medications IV Flush (NS 3 ml) 3 ml PER PROTOCOL IV ; Start 06/06/18 at 00:00 Ondansetron HCl (Zofran Inj) 4 mg Q6H PRN IV NAUSEA AND/OR VOMITING; Start 06/06/18 at 00:00 Acetaminophen (Tylenol Tab) 650 mg Q6H PRN PO PAIN LEVEL 1-3 OR FEVER; Start 06/06/18 at 00:00 Acetaminophen/ Hydrocodone Bitart ([place] (5/325)) 1 tab Q6H PRN PO PAIN LEVEL 4-6; Start 06/06/18 at 00:00 Acetaminophen/ Hydrocodone Bitart ([place] (5/325)) 2 tab Q6H PRN PO PAIN LEVEL 7-10 Last administered on 06/06/18at 22:52; Admin Dose 2 TAB; Start 06/06/18 at 00:00 Amlodipine Besylate (Norvasc) 2.5 mg DAILY PO Last administered on 06/07/18at 08:44; Admin Dose 2.5 MG; Start 06/06/18 at 09:00 Aspirin (Halfprin) 81 mg DAILY PO Last administered on 06/07/18at 08:45; Admin Dose 81 MG; Start 06/06/18 at 09:00 Atorvastatin Calcium (Lipitor) 20 mg QHS PO Last administered on 06/06/18at 21:25; Admin Dose 20 MG; Start 06/06/18 at 21:00 Gemfibrozil (Lopid) 600 mg BID PO Last administered on 06/07/18at 08:45; Admin Dose 600 MG; Start 06/06/18 at 09:00 Isosorbide Mononitrate (Ismo) 20 mg DAILY PO Last administered on 06/07/18at 0 8:45; Admin Dose 20 MG; Start 06/06/18 at 09:00 Metoprolol Succinate (Toprol Xl) 100 mg DAILY PO Last administered on 06/07/18at 08:45; Admin Dose 100 MG; Start 06/06/18 at 09:00 Diagnostic Test (Pha) (Accu-Chek) 1 ea 02 XX Last administered on 06/07/18at 02:22; Admin Dose 1 EA; Start 06/06/18 at 02:00 Insulin Aspart (Novolog Insulin Pen) NOVOLOG *MILD* ALGORITHM WITH MEALS BEDTIME SC Last administered on 06/07/18at 11:58; Admin Dose 2 UNIT; Start 06/06/18 at 08:00 Miscellaneous Information 1 ea NOTE XX ; Start 06/06/18 at 00:30 Glucose (Glutose) 15 gm Q15M PRN PO DECREASED GLUCOSE; Start 06/06/18 at 00:30 Glucose (Glutose) 22.5 gm Q15M PRN PO DECREASED GLUCOSE; Start 06/06/18 at 00:30 Dextrose (D50w Syringe) 25 ml Q15M PRN IV DECREASED GLUCOSE; Start 06/06/18 at 00:30 Dextrose (D50w Syringe) 50 ml Q15M PRN IV DECREASED GLUCOSE; Start 06/06/18 at 00:30 Glucagon (Glucagen) 1 mg Q15M PRN IM DECREASED GLUCOSE; Start 06/06/18 at 00:30 Glucose (Glutose) 15 gm Q15M PRN BUCCAL DECREASED GLUCOSE; Start 06/06/18 at 00:30 Methylprednisolone Sodium Succinate (Solu-Medrol) 20 mg Q8 IV Last administered on 06/07/18at 13:07; Admin Dose 20 MG; Start 06/06/18 at 14:00 Pantoprazole (Protonix Tab) 40 mg BID@06,18 PO Last administered on 06/07/18at 06:04; Admin Dose 40 MG; Start 06/06/18 at 18:00 Mesalamine (Delzicol Dr) 800 mg TID PO Last administered on 06/07/18at 13:06; Admin Dose 800 MG; Start 06/06/18 at 14:00 DAREN MCKNIGHT Jun 07, 2018 14:26
--- NOTE | 2018-06-07 18:34 | NUR ---
EOSS: PT AO x 4, VSS, denies pain, had 3 loose BM's during shift. Pending transfer to med/surg. Will endorse accordingly to oncoming shift.
[2018-06-07] MEDS: ATORVASTATIN 20 MG TAB PO SCH (21:40)
[2018-06-07] MEDS: HYDROCODONE/APAP (5/325) TAB PO PRN (21:41)
[2018-06-07] MEDS ORDERED: traZODone 50 MG TAB PO ONE (22:27)
--- NOTE | 2018-06-07 23:09 | NUR ---
RN NOTES: Report given to Mami around [id number] for continuity of care. Patient transferred to [facility] room 2273, via wheelchair with all his personal belongings. Patient left in stable condition. Patient's insulin pen was placed in chart. Daughter, Marques, was made aware of the transfer.
--- NOTE | 2018-06-08 00:22 | NUR ---
Received patient from 6W Dx: Hypokalemia. Alert & oriented, speaks Farsi only. Routine assessment done, denies any pain or discomfort at this time. Ambulatory with steady gait. Spoke with patient's son Marques by phone. Kept patient comfortable in bed.
[2018-06-08 01:41] VITALS: BP 133/71; PULSE 63; RESP 16
[2018-06-08] MEDS: ACCU-CHEK XX SCH (02:00)
[2018-06-08] MEDS: PANTOPRAZOLE (EC) 40 MG TAB PO SCH ×2 (06:52→18:05)
[2018-06-08] MEDS: METHYLPREDNISOLONE 40 MG INJ IV SCH ×2 (06:52→14:35)
[2018-06-08 07:58] VITALS: BP 121/64; PULSE 51; RESP 18
[2018-06-08] MEDS: MESALAMINE (EC) 400 MG CAP PO SCH ×2 (08:31→12:53)
[2018-06-08] MEDS: ASPIRIN (EC) 81 MG TAB PO SCH (08:31)
[2018-06-08] MEDS: GEMFIBROZIL 600 MG TAB PO SCH (08:31)
[2018-06-08] MEDS: INSULIN ASPART [NOVOLOG] 3 ML PEN SC SCH ×3 (08:40→17:58)
[2018-06-08] MEDS: METOPROLOL (XL) 100 MG TAB PO SCH ×2 (09:00→14:35)
[2018-06-08] MEDS: AMLODIPINE 2.5 MG TAB PO SCH (10:06)
--- NOTE | 2018-06-08 11:26 | PDOCDIS ---
Discharge Instructions CONDITION [id number] Patient Condition: [id number] Stable HOME CARE INSTRUCTIONS: [id number] Special Diet: [id number] Low residue, carbohydrate controlled diet. FOLLOW UP/APPOINTMENTS Follow-up Plan Follow-up with outpatient gastroenterology in 1 month. OTHER ORDERS: Other Orders: 1. Resume home medications. 2. Start taking tapering but more dose of steroids. 3. Take a carbohydrate controlled, low residue diet. 4. Resume activities as tolerated. 5. Schedule follow-up with your parcel post officer at the earliest at least within the next 1 month. 6. Please go to the nearest emergency room if you have significant abdominal pain, persistent diarrhea, persistent blood in stool, persistent nausea/vomiting, fevers, or any other unusual signs/symptoms. REILLY PANTOJA NP Jun 08, 2018 11:26
[2018-06-08 14:32] VITALS: BP 128/59; PULSE 60; RESP 17
[2018-06-08] MEDS: ISOSORBIDE MONONITRATE 20 MG TAB PO SCH (14:35)
--- NOTE | 2018-06-08 15:05 | PN ---
Date/Time of Note Date/Time of Note DATE: 06/08/18 TIME: 15:02 Assessment/Plan VTE Prophylaxis Risk score (from Nsg)>0 risk: 3 SCD applied (from Nsg): Yes Pharmacological prophylaxis: other (scds) Lines/Catheters [facility] Saline Lock Assessment/Plan Hospital Course Summary Assessment and Plan: Assessment: UC- flare- -CDIFF neg Acute on chronic nausea/vomiting- improved today Unintentional weight loss REBECCA CAD HTN DM History of EGD/colonoscopy 04/03- at [facility]- reports in system History of Gastroparesis Plan: Pt has pantoprazole at home continue after discharge Pt bnow denies abd pain or urge to have bm- ok to d/c home on prednisone taper Pt to f/u with Gi after discharge- I spoke to the patient son yesterday - pt to start apriso- sone was to call pharm and [place] superintendent medication- pt to continue until seen by GI Low residue diet, diabetic diet CRP/ESR- elevated as expected CEA- neg 2.2 Patient seen in collaboration with Dr. Orozco Subjective: Course reviewed with nursing staff Patient interviewed and examined All labs, imaging and other results reviewed No c/o pain, no c/o rectal bleeding or the urge to have a bm WBC slight up in the setting of steroid use, Ok to d/c home today PHYSICAL EXAMINATION: GENERAL: Well developed, well nourished, alert & oriented x 3, in no acute distress SKIN: No lesions EYES: Pupils equal reactive to light, no discharge. EARS/NOSE AND THROAT: Ears normal, nose normal, oropharynx normal NECK: Supple, no masses CHEST: Inspection within normal limits. CARDIOVASCULAR: Heart: Regular rate and rhythm RESPIRATORY: Lungs clear to auscultation GASTROINTESTINAL AND LIVER: Abdomen: Soft, non tenderness, non-distended, no hernias, no masses, no organomegaly, no ascites, no guarding, no rebound tenderness, normoactive bowel sounds. Rectal: Deferred. GENITOURINARY: Not examined Result Diagram: 06/08/1843006/08/18 0431 Results 24hrs Laboratory Tests Test 06/07/18 17:22 06/07/18 21:37 06/08/18 02:13 06/08/18 04:31 Bedside Glucose 224 H 188 154 White Blood Count 13.1 #H Red Blood Count 4.32 L Hemoglobin 9.5 L Hematocrit 30.5 L Mean Corpuscular 70.6 L Volume Mean Corpuscular 22.0 L Hemoglobin Mean Corpuscular 31.1 L Hemoglobin Concent Red Cell 17.2 H Distribution Width Platelet Count 134 #L Mean Platelet Volume 11.0 H Immature 1.400 H Granulocytes % Neutrophils % 86.2 H Lymphocytes % 9.1 L Monocytes % 3.1 Eosinophils % 0.0 Basophils % 0.2 Nucleated Red Blood 0.0 Cells % Immature 0.180 H Granulocytes # Neutrophils # 11.3 H Lymphocytes # 1.2 Monocytes # 0.4 Eosinophils # 0.0 Basophils # 0.0 Nucleated Red Blood 0.0 Cells # Sodium Level 139 Potassium Level 4.6 Chloride Level 104 Carbon Dioxide Level 25 Anion Gap 10 Blood Urea Nitrogen 16 Creatinine 0.87 Est Glomerular > 60 Filtrat Rate mL/min Glucose Level 169 Calcium Level 9.1 Phosphorus Level 3.8 Magnesium Level 2.0 C-Reactive Protein 2.2 H Test 06/08/18 08:30 06/08/18 12:49 Bedside Glucose 151 186 Exam/Review of Systems Vital Signs Vitals Vital Signs Date Temp Pulse Resp B/P (MAP) Pulse Ox O2 O2 Flow FiO2 Time Delivery Rate 06/08/18 98.1 60 17 128/59 96 Room Air 14:32 (82) Intake and Output 06/07/18 06/07/18 06/08/18 1515:00 23:00 07:00 IntakeIntake Total 1320 ml 118 ml BalanceBalance 1320 ml 118 ml Medications Medications Current Medications IV Flush (NS 3 ml) 3 ml PER PROTOCOL IV ; Start 06/06/18 at 00:00 Ondansetron HCl (Zofran Inj) 4 mg Q6H PRN IV NAUSEA AND/OR VOMITING; Start 06/06/18 at 00:00 Acetaminophen (Tylenol Tab) 650 mg Q6H PRN PO PAIN LEVEL 1-3 OR FEVER; Start 06/06/18 at 00:00 Acetaminophen/ Hydrocodone Bitart ([place] (5/325)) 1 tab Q6H PRN PO PAIN LEVEL 4-6; Start 06/06/18 at 00:00 Acetaminophen/ Hydrocodone Bitart ([place] (5/325)) 2 tab Q6H PRN PO PAIN LEVEL 7-10 Last administered on 06/07/18at 21:41; Admin Dose 2 TAB; Start 06/06/18 at 0 0:00 Amlodipine Besylate (Norvasc) 2.5 mg DAILY PO Last administered on 06/08/18 10:06; Admin Dose 2.5 MG; Start 06/06/18 at 09:00 Aspirin (Halfprin) 81 mg DAILY PO Last administered on 06/08/18 08:31; Admin Dose 81 MG; Start 06/06/18 at 09:00 Atorvastatin Calcium (Lipitor) 20 mg QHS PO Last administered on 06/07/18at 21:40; Admin Dose 20 MG; Start 06/06/18 at 21:00 Gemfibrozil (Lopid) 600 mg BID PO Last administered on 06/08/18 08:31; Admin Dose 600 MG; Start 06/06/18 at 09:00 Isosorbide Mononitrate (Ismo) 20 mg DAILY PO Last administered on 06/08/18 14:35; Admin Dose 20 MG; Start 06/06/18 at 09:00 Metoprolol Succinate (Toprol Xl) 100 mg DAILY PO Last administered on 06/08/18at 14:35; Admin Dose 100 MG; Start 06/06/18 at 09:00 Diagnostic Test (Pha) (Accu-Chek) 1 ea 02 XX Last administered on 06/07/18at 02:22; Admin Dose 1 EA; Start 06/06/18 at 02:00 Insulin Aspart (Novolog Insulin Pen) NOVOLOG *MILD* ALGORITHM WITH MEALS BEDTIME SC Last administered on 06/08/18at 12:53; Admin Dose 2 UNIT; Start 06/06/18 at 08:00 Miscellaneous Information 1 ea NOTE XX ; Start 06/06/18 at 00:30 Glucose (Glutose) 15 gm Q15M PRN PO DECREASED GLUCOSE; Start 06/06/18 at 00:30 Glucose (Glutose) 22.5 gm Q15M PRN PO DECREASED GLUCOSE; Start 06/06/18 at 00:30 Dextrose (D50w Syringe) 25 ml Q15M PRN IV DECREASED GLUCOSE; Start 06/06/18 at 00:30 Dextrose (D50w Syringe) 50 ml Q15M PRN IV DECREASED GLUCOSE; Start 06/06/18 at 00:30 Glucagon (Glucagen) 1 mg Q15M PRN IM DECREASED GLUCOSE; Start 06/06/18 at 00:30 Glucose (Glutose) 15 gm Q15M PRN BUCCAL DECREASED GLUCOSE; Start 06/06/18 at 00:30 Methylprednisolone Sodium Succinate (Solu-Medrol) 20 mg Q8 IV Last administered on 06/08/18at 14:35; Admin Dose 20 MG; Start 06/06/18 at 14:00 Pantoprazole (Protonix Tab) 40 mg BID@06,18 PO Last administered on 06/08/18at 06:52; Admin Dose 40 MG; Start 06/06/18 at 18:00 Mesalamine (Delzicol Dr) 800 mg TID PO Last administered on 06/08/18at 12:53; Admin Dose 800 MG; Start 06/06/18 at 14:00 DAREN MCKNIGHT Jun 08, 2018 15:05
--- NOTE | 2018-06-08 15:23 | DS ---
Date/Time of Note Date/Time of Note DATE: 06/08/18 TIME: 15:21 Discharge Summary Admission/Discharge Info Admit Date/Time Jun 05, 2018 at 22:43 Discharge Date/Time Discharge Diagnosis 1. UC flare. 2. Essential hypertension. 3. Diabetes mellitus. 4. History of CAD. 5. Dyslipidemia. 6. Anemia. Patient Condition: Stable Consults 1. Nisha Orozco MD, Gastroenterology. Hx of Present Illness This is a 63-year-old male with comorbidities including hypertension, CAD status post CABG, ulcerative colitis, and diabetes mellitus, who came to the emergency room with chief complaint of abdominal pain, diarrhea, and vomiting for 1 week. The patient was evaluated at an outside emergency room with a CT scan that showed markedly irregular thickening of the proximal and mid ascending colon as well as enlarged mesenteric lymph nodes. The patient was transferred to [facility] for further evaluation because of insurance reasons. Hospital Course The patient was ruled out for any underlying infectious process. The patient stool studies including C. difficile study was negative. The patient was treated for underlying ulcerative colitis flare. The patient was maintained on mesalamine. The patient was started on IV steroids. Gastroenterology was consulted. The patient was being maintained on medications as per gastroenterology. The patient's symptomatology including the frequency of diarrhea and abdominal pain improved throughout the hospital course. Upon discharge, the patient will be switched to oral steroids. The patient will follow up with outpatient gastroenterology in 1 month. The patient's chronic problems include essential hypertension. The patient was maintained on antihypertensives for the same. He has history of diabetes mellitus. Hemoglobin A1c was 6.1. He was maintained on sliding scale insulin. The patient history of CAD. He was continued on aspirin. The patient has a history of dyslipidemia. He was continued on statins. The patient was noticed to have microcytic and hypochromic anemia. Iron panel showing low iron and low iron saturation. The patient had a stable hospital course. The patient's abdominal pain has completely resolved and the patient has no more episodes of diarrhea. Therefore, the patient will be discharged home, to be followed up with outpatient gastroenterology. Discharge Instructions 1. Resume home medications. 2. Start taking tapering dose of oral steroids. 3. Take a carbohydrate controlled, low residue diet. 4. Resume activities as tolerated. 5. Schedule follow-up with your supervisor [facility] at the earliest at least within the next 1 month. 6. Please go to the nearest emergency room if you have significant abdominal pain, persistent diarrhea, persistent blood in stool, persistent nausea/vomiting, fevers, or any other unusual signs/symptoms. The patient verbalized understanding of the discharge instructions. At this time I would like to thank all the consultants for seeing the patient and providing clinical recommendations. The patient was seen in collaboration with Dr. Fuentes. Home Meds Reported Medications Metoclopramide HCl (Metoclopramide HCl) 10 Gm Powder, 10 GM MC 03/21/18 Mesalamine* (Asacol HD) 800 Mg Tablet., 1800 MG PO TID, TAB 03/21/18 Aspirin (Low Dose Aspirin) 81 Mg Tablet.dr, 81 MG PO DAILY, #30 TAB 12/29/17 Gemfibrozil* (Gemfibrozil*) 600 Mg Tablet, 600 MG PO BID, TAB 12/29/17 Amlodipine Besylate* (Amlodipine Besylate*) 2.5 Mg Tablet, 2.5 MG PO DAILY, #30 TAB 12/29/17 Atorvastatin Calcium* (Atorvastatin Calcium*) 20 Mg Tablet, 20 MG PO QHS, #30 TAB 12/29/17 Metoprolol Succinate* (Toprol XL*) 100 Mg Tab.sr.24h, 100 MG PO DAILY, #30 TAB 12/29/17 Isosorbide Mononitrate* (Isosorbide Mononitrate*) 20 Mg Tablet, 20 MG PO DAILY, TAB 12/29/17 Pantoprazole* (Protonix*) 40 Mg Tablet., 40 MG PO DAILY, TAB 12/29/17 Insulin Glargine,Hum.rec.anlog (Calixto Pineda) 300 Unit/1 Ml Insuln.pen, 24 UNIT SQ QHS, EA 12/29/17 Follow-up Plan Follow-up with outpatient gastroenterology in 1 month. Primary Care Provider Not On Staff Doctor Time spent on discharge: > 30 minutes Pending Labs Laboratory Tests Test 06/07/18 17:22 06/07/18 21:37 06/08/18 02:13 06/08/18 04:31 Bedside 224 188 154 Glucose mg/dL (70-220) mg/dL (70-220) mg/dL (70-220) White Blood 13.1 Count 10^3/ul (4.8-1 0.8) Red Blood 4.32 Count 10^6/ul (4.70- 6.10) Hemoglobin 9.5 g/dl (14.0-18. 0) Hematocrit 30.5 % (42.0-52.0) Mean 70.6 Corpuscular fl (82.0-101.0 Volume ) Mean 22.0 Corpuscular pg (29.0-33.0) Hemoglobin Mean 31.1 Corpuscular g/dl (32.0-37. Hemoglobin Conc 0) ent Red Cell 17.2 Distribution % (11.5-14.5) Width Platelet Count 134 10^3/UL (140-4 15) Mean Platelet 11.0 Volume fl (7.4-10.4) Immature 1.400 Granulocytes % % (0.001-0.429 ) Neutrophils % 86.2 % (39.0-77.0) Lymphocytes % 9.1 % (15.0-51.0) Monocytes % 3.1 % (0.0-11.0) Eosinophils % 0.0 % (0.0-7.0) Basophils % 0.2 % (0.0-2.0) Nucleated Red 0.0 Blood Cells % /100WBC (0.0-0 .0) Immature 0.180 Granulocytes # 10^3/ul (0.0-0 .031) Neutrophils # 11.3 10^3/ul (1.6-7 .5) Lymphocytes # 1.2 10^3/ul (0.8-2 .9) Monocytes # 0.4 10^3/ul (0.3-0 .9) Eosinophils # 0.0 10^3/ul (0.0-0 .5) Basophils # 0.0 10^3/ul (0.0-0 .1) Nucleated Red 0.0 Blood Cells # 10^3/ul (0.0-0 .0) Sodium Level 139 mmol/L (135-14 4) Potassium 4.6 Level mmol/L (3.5-5. 1) Chloride Level 104 mmol/L (97-110 ) Carbon Dioxide 25 Level mmol/L (21-31) Anion Gap 10 (5-13) Blood Urea 16 Nitrogen mg/dl (7-20) Creatinine 0.87 mg/dl (0.61-1. 24) Est Glomerular > 60 Filtrat mL/min (>60) Rate mL/min Glucose Level 169 mg/dl (70-220) Calcium Level 9.1 mg/dl (8.4-10. 2) Phosphorus 3.8 Level mg/dl (2.5-4.9 ) Magnesium 2.0 Level mg/dl (1.7-2.5 ) C-Reactive 2.2 Protein mg/dl (0.0-0.9 ) Test 06/08/18 08:30 06/08/18 12:49 Bedside 151 186 Glucose mg/dL (70-220) mg/dL (70-220) REILLY PANTOJA NP Jun 08, 2018 15:23
--- NOTE | 2018-06-08 19:52 | NUR ---
VS stable. Pain under control. No BM today.Discharge instructions given to patient regarding activities, diet, medications and danger s/s to report to MD .Patient verbalized understanding of teaching and hs been discharged to family care by wheelchair.
== END 2018-06-08 18:25 | disposition home or self-care (01) | DRG 387 ==
LOC: 6WM 22:43 → 2NE 06-07 23:04
PROVIDERS: ADMIT Internal Medicine; ATTEND Internal Medicine
DX: K51.90 Ulcerative colitis, unspecified, without complications (principal); D64.9 Anemia, unspecified; E11.9 Type 2 diabetes mellitus without complications; I10 Essential (primary) hypertension; E78.5 Hyperlipidemia, unspecified; I25.10 Atherosclerotic heart disease of native coronary artery without angina pectoris; K64.9 Unspecified hemorrhoids; Z79.84 Long term (current) use of oral hypoglycemic drugs; Z79.82 Long term (current) use of aspirin; Z87.891 Personal history of nicotine dependence; Z95.1 Presence of aortocoronary bypass graft
CPT/HCPCS: 80048; 80053; 82378; 82728; 82962; 83036; 83540; 83690; 83735; 84100; 85025; 85651; 86140; 87045; 87075; 87081; J1815; J2270; J2920

== ENCOUNTER 2018-08-04 20:50 | Emergency (ER) | payer BC ==
[~2018-08-04] VITALS: Ht 165.1 cm; Wt 69.3 kg
[2018-08-04 21:40] VITALS: Ht 165.1 cm; Wt 69.3 kg
[2018-08-04] MEDS ORDERED: KETOROLAC 15 MG INJ IV STA (22:40)
[2018-08-04] MEDS ORDERED: ONDANSETRON 4 MG INJ IV STA (22:40)
[2018-08-04] MEDS ORDERED: SOD CHLORIDE 0.9% 1,000 ML IV STA (22:40)
[2018-08-04] MEDS ORDERED: DICYCLOMINE 20 MG INJ IM ONE (23:00)
--- NOTE | 2018-08-04 23:12 | ERD ---
ER Documentation Chief Complaint Chief Complaint C/O WORSENING AP X3 WEEKS W/ NAUSEA, HX OF COLITIS HPI 63-year-old gentleman family is interpreting who presents to the emergency room with at least 3 weeks of abdominal pain that is periumbilical and left-sided. The patient has a history of ulcerative colitis and recently completed a course of steroid taper is now on budesonide. Patient states that once he started taking the budesonide he started to have worsening pain and cramping. He also notes occasional bleeding with his stool. He denies any fevers or chills, cough chest pain or shortness of breath. Dr. Hendrickson is his GI provider who recommended he come to the emergency room. ROS All systems reviewed and are negative except as per history of present illness. Medications Home Meds Active Scripts Prednisone* (Prednisone*) 20 Mg Tab, 40 MG PO DAILY for 5 Days, TAB Prov:MIMA PATHAK MD 08/05/18 Reported Medications Metoclopramide HCl (Metoclopramide HCl) 10 Gm Powder, 10 GM MC 03/21/18 Mesalamine* (Asacol HD) 800 Mg Tablet.dr, 1800 MG PO TID, TAB 03/21/18 Aspirin (Low Dose Aspirin) 81 Mg Tablet.dr, 81 MG PO DAILY, #30 TAB 12/29/17 Gemfibrozil* (Gemfibrozil*) 600 Mg Tablet, 600 MG PO BID, TAB 12/29/17 Amlodipine Besylate* (Amlodipine Besylate*) 2.5 Mg Tablet, 2.5 MG PO DAILY, #30 TAB 12/29/17 Atorvastatin Calcium* (Atorvastatin Calcium*) 20 Mg Tablet, 20 MG PO QHS, #30 TAB 12/29/17 Metoprolol Succinate* (Toprol XL*) 100 Mg Tab.sr.24h, 100 MG PO DAILY, #30 TAB 12/29/17 Isosorbide Mononitrate* (Isosorbide Mononitrate*) 20 Mg Tablet, 20 MG PO DAILY, TAB 12/29/17 Pantoprazole* (Protonix*) 40 Mg Tablet.dr, 40 MG PO DAILY, TAB 12/29/17 Insulin Glargine,Hum.rec.anlog (Calixto Pineda) 300 Unit/1 Ml Insuln.pen, 24 UNIT SQ QHS, EA 12/29/17 Allergies Allergies: Coded Allergies: No Known Allergy (Unverified , 08/04/18) PMhx/Soc History of Surgery: Yes (BYPASS 16 YEAR AGO, GALL STONE REMOVAL) Anesthesia Reaction: No Hx Neurological Disorder: No Hx Respiratory Disorders: No Hx Cardiac Disorders: Yes (HTN) Hx Psychiatric Problems: No Hx Miscellaneous Medical Probl: Yes (ULCERATIVE COLITIS) Hx Alcohol Use: No Hx Substance Use: No Hx Tobacco Use: Yes Smoking Status: Former smoker FmHx Family History: No diabetes Physical Exam Vitals Vital Signs Date Temp Pulse Resp B/P (MAP) Pulse Ox O2 O2 Flow FiO2 Time Delivery Rate 08/04/18 95 17 153/64 100 Room Air 22:22 (93) 08/04/18 98.4 109 20 124/63 100 21:40 (83) Physical Exam General: Well developed, well nourished, no acute distress Head: Normocephalic, atraumatic. Eyes: Pupils equally reactive, EOM intact ENT: Moist mucous membranes Neck: Supple, no lymphadenopathy Respiratory: Lungs clear bilaterally, no distress Cardiovascular: RRR, no murmurs, rubs, or gallops Abdominal: Soft, mild periumbilical and left lower quadrant abdominal tenderness without rebound or guarding : Deferred MSK: No edema, no unilateral swelling, 5/5 strength Neurologic: Alert and oriented, moving all extremities, normal speech, no focal weakness, no cerebellar signs Skin: No rash Psych: Normal mood Result Diagram: 08/04/18224308/04/184 Results 24 hrs Laboratory Tests Test 08/04/18 22:44 White Blood Count 12.8 10^3/ul Red Blood Count 5.22 10^6/ul Hemoglobin 11.8 g/dl Hematocrit 39.3 % Mean Corpuscular Volume 75.3 fl Mean Corpuscular Hemoglobin 22.6 pg Mean Corpuscular Hemoglobin Concent 30.0 g/dl Red Cell Distribution Width 18.2 % Platelet Count 424 10^3/UL Mean Platelet Volume 9.5 fl Immature Granulocytes % 0.700 % Neutrophils % 82.3 % Lymphocytes % 9.6 % Monocytes % 6.7 % Eosinophils % 0.2 % Basophils % 0.5 % Nucleated Red Blood Cells % 0.0 /100WBC Immature Granulocytes # 0.090 10^3/ul Neutrophils # 10.5 10^3/ul Lymphocytes # 1.2 10^3/ul Monocytes # 0.9 10^3/ul Eosinophils # 0.0 10^3/ul Basophils # 0.1 10^3/ul Nucleated Red Blood Cells # 0.0 10^3/ul Sodium Level 143 mmol/L Potassium Level 4.3 mmol/L Chloride Level 102 mmol/L Carbon Dioxide Level 26 mmol/L Anion Gap 15 Blood Urea Nitrogen 18 mg/dl Creatinine 1.28 mg/dl Est Glomerular Filtrat Rate mL/min 57 mL/min Glucose Level 150 mg/dl Calcium Level 9.3 mg/dl Total Bilirubin 0.2 mg/dl Direct Bilirubin 0.00 mg/dl Indirect Bilirubin 0.2 mg/dl Aspartate Amino Transf (AST/SGOT) 14 IU/L Alanine Aminotransferase (ALT/SGPT) 8 IU/L Alkaline Phosphatase 96 IU/L Total Protein 7.3 g/dl Albumin 3.7 g/dl Globulin 3.60 g/dl Albumin/Globulin Ratio 1.02 Lipase 25 U/L Current Medications Medications Dose Sig/Nevaeh Start Time Status Last (Trade) Ordered Route PRN Stop Time Admin Dose Reason Admin Sodium 1,000 ml @ Q1H STAT 08/04/18 DC 08/04/18 Chloride 1,000 mls/hr IV 22:40 22:54 08/04/18 23:39 Ondansetron 4 mg ONCE STAT 08/04/18 DC 08/04/18 HCl (Zofran IV 22:40 22:54 Inj) 08/04/18 22:42 Ketorolac 15 mg ONCE STAT 08/04/18 DC 08/04/18 Tromethamine IV 22:40 22:54 (Toradol) 08/04/18 22:42 Dicyclomine 10 mg ONCE ONCE 08/04/18 DC 08/04/18 HCl IM 23:00 23:28 (Bentyl) 08/04/18 23:01 Procedures/MDM EKG, MONITORS, & DIAGNOSTIC IMAGING: CT abdomen and pelvis: IMPRESSION: 1. Diffuse colitis, etiology undetermined. 2. Aortic atherosclerosis. 3. Interval cholecystectomy since the prior study. RPTAT:ALEJ LAB INTERPRETATION: I reviewed the laboratory testing and it shows mild leukocytosis MEDICAL DECISION MAKING: Patient has persistent abdominal pain likely consistent with ulcerative colitis and possible ulcerative colitis flare. Lower concern for perforation or abscess. No signs or symptoms concerning for aortic process. Patient will benefit from repeat CT imaging to rule out complications of ulcerative colitis. I have also placed a phone call to Dr. Hendrickson to discuss outpatient management. Lower concern for acute process that would warrant hospitalization. ER COURSE: * IV fluids and symptom control medication provided * Patient's labs and CT imaging are consistent with ulcerative colitis flare that will likely respond to steroids. No indication for antibiotics. * At this time no callback by Dr. Hendrickson. This is okay and the patient can be safely followed up on an outpatient basis. I believe a short course of steroids for 5 days would be appropriate. Return precautions were discussed and understood. CONSULTATION: [None] DISPOSITION PLAN: The patient does not have an identifiable emergent medical condition that warrants inpatient hospitalization at this time. The patient is deemed safe for discharge with outpatient follow-up. We discussed follow up with the patient's primary care doctor within 24 to 48 hours as needed. We also discussed return to the emergency room for worsening symptoms or worsening condition. Outpatient referral: With Dr. Hendrickson Discharge Medications: Prednisone Departure Diagnosis: Primary Impression: Exacerbation of ulcerative colitis Digestive disease complication type: without complication Qualified Codes: K51.90 - Ulcerative colitis, unspecified, without complications Additional Impression: Abdominal pain Abdominal location: generalized Qualified Codes: R10.84 - Generalized abdominal pain Condition: Stable MIMA PATHAK MD Aug 04, 2018 23:12
[2018-08-05] MEDS ORDERED: PRED20TA PO (01:19)
[2018-08-05 01:43] VITALS: BP 154/66; PULSE 95; RESP 17
== END 2018-08-05 01:40 | disposition home or self-care (01) ==
LOC: E/R 20:50
DX: K51.90 Ulcerative colitis, unspecified, without complications (principal); I10 Essential (primary) hypertension; E11.9 Type 2 diabetes mellitus without complications; Z79.4 Long term (current) use of insulin; Z79.82 Long term (current) use of aspirin
CPT/HCPCS: 36415; 74176; 80053; 83690; 85025; 96372; 96374; 96375; J0500; J1885; J2405; J7030; Z7502

== ENCOUNTER 2018-08-20 13:39 | Inpatient (IN) | payer BC ==
[~2018-08-20] VITALS: Ht 170.2 cm; Wt 69.1 kg
[~2018-08-20 13:39] MED LIST changes: +PRED20TA PO
[2018-08-20] MEDS ORDERED: SOD CHLORIDE 0.9% 1,000 ML IV STA (14:05)
[2018-08-20] MEDS ORDERED: ONDANSETRON 4 MG INJ IV STA (14:05)
[2018-08-20] MEDS ORDERED: HYDROmorphONE 1 MG/ML SYG IV STA (14:05)
--- NOTE | 2018-08-20 14:12 | ERD ---
ER Documentation Chief Complaint Chief Complaint AP WITH BLODY STOOLS, HX ULCERAIVE COLITIS HPI This is a 63-year-old male with a history of ulcerative colitis having complaints of abdominal pain for 1 week located in the left lower quadrant described as crampy with episodes of bloody diarrhea which is typical for his ulcerative colitis. He has had no fever chest pain shortness of breath no syncope no radiation of pain ROS All systems reviewed and are negative except as per history of present illness. Medications Home Meds Active Scripts Prednisone* (Prednisone*) 20 Mg Tab, 40 MG PO DAILY for 5 Days, TAB Prov:MIMA PATHAK MD 08/05/18 Reported Medications Metoclopramide HCl (Metoclopramide HCl) 10 Gm Powder, 10 GM MC 03/21/18 Mesalamine* (Asacol HD) 800 Mg Tablet.dr, 1800 MG PO TID, TAB 03/21/18 Aspirin (Low Dose Aspirin) 81 Mg Tablet.dr, 81 MG PO DAILY, #30 TAB 12/29/17 Gemfibrozil* (Gemfibrozil*) 600 Mg Tablet, 600 MG PO BID, TAB 12/29/17 Amlodipine Besylate* (Amlodipine Besylate*) 2.5 Mg Tablet, 2.5 MG PO DAILY, #30 TAB 12/29/17 Atorvastatin Calcium* (Atorvastatin Calcium*) 20 Mg Tablet, 20 MG PO QHS, #30 TAB 12/29/17 Metoprolol Succinate* (Toprol XL*) 100 Mg Tab.sr.24h, 100 MG PO DAILY, #30 TAB 12/29/17 Isosorbide Mononitrate* (Isosorbide Mononitrate*) 20 Mg Tablet, 20 MG PO DAILY, TAB 12/29/17 Pantoprazole* (Protonix*) 40 Mg Tablet.dr, 40 MG PO DAILY, TAB 12/29/17 Insulin Glargine,Hum.rec.anlog (Calixto Pineda) 300 Unit/1 Ml Insuln.pen, 24 UNIT SQ QHS, EA 12/29/17 Allergies Allergies: Coded Allergies: No Known Allergy (Unverified , 08/04/18) PMhx/Soc History of Surgery: Yes (BYPASS 16 YEAR AGO, GALL STONE REMOVAL) Anesthesia Reaction: No Hx Neurological Disorder: No Hx Respiratory Disorders: No Hx Cardiac Disorders: Yes (HTN) Hx Psychiatric Problems: No Hx Miscellaneous Medical Probl: Yes (ULCERATIVE COLITIS) Hx Alcohol Use: No Hx Substance Use: No Hx Tobacco Use: Yes FmHx Family History: No coronary disease Physical Exam Vitals Vital Signs Date Temp Pulse Resp B/P (MAP) Pulse Ox O2 O2 Flow FiO2 Time Delivery Rate 08/20/18 98.9 99 18 115/62 99 13:44 (79) Physical Exam Const: Well-developed, well-nourished Head: Atraumatic, normocephalic Eyes: Normal Conjunctiva, PERRLA, EOMI, normal sclera, no nystagmus ENT: Normal External Ears, Nose and Mouth, moist mucus membranes. Neck: Full range of motion. No meningismus, no lymphadenopathy. Resp: Clear to auscultation bilaterally, no wheezing, rhonchi, rales Cardio: Regular rate and rhythm, no murmurs, S1 S2 present Abd: Soft, moderate left lower quadrant tenderness, non distended. Normal bowel sounds, no guarding or rebound, no pulsitile abdominal masses or bruits Skin: No petechiae or rashes, no ecchymosis , no maculopapular rash Back: No midline or flank tenderness Ext: No cyanosis, or edema, FROM x 4, normal inspection, neurovascularly intact x 4 Neur: Awake and alert, STR 5/5 x 4, sensation intact x 4, no focal findings, cerebellum intact Psych: Normal Mood and Affect Result Diagram: 08/20/18 1427 08/20/18 1427 Results 24 hrs Laboratory Tests Test 08/20/18 14:27 White Blood Count 10.7 10^3/ul Red Blood Count 5.16 10^6/ul Hemoglobin 11.5 g/dl Hematocrit 37.7 % Mean Corpuscular Volume 73.1 fl Mean Corpuscular Hemoglobin 22.3 pg Mean Corpuscular Hemoglobin Concent 30.5 g/dl Red Cell Distribution Width 17.5 % Platelet Count 563 10^3/UL Mean Platelet Volume 8.6 fl Immature Granulocytes % 0.700 % Neutrophils % % Segmented Neutrophils % (Manual) 46 % Band Neutrophils % (Manual) 26 % Lymphocytes % % Lymphocytes % (Manual) 20 % Monocytes % % Monocytes % (Manual) 5 % Eosinophils % % Eosinophils % (Manual) 1 % Basophils % % Basophils % (Manual) 2 % Nucleated Red Blood Cells % 0.0 /100WBC Immature Granulocytes # 0.080 10^3/ul Neutrophils # 10^3/ul Neutrophils # (Manual) 5.2 10^3/ul Band Neutrophils # 2.7 10^3/ul Lymphocytes (Manual) 2.1 10^3/ul Lymphocytes # 10^3/ul Monocytes # 10^3/ul Monocytes # (Manual) 0.5 10^3/ul Eosinophils # 10^3/ul Basophils # 10^3/ul Basophils # (Manual) 0.2 10^3/ul Nucleated Red Blood Cells # 10^3/ul Platelet Estimate INCREASED Giant Platelets 1 % Polychromasia 3+ Poikilocytosis 2+ Anisocytosis 1+ Microcytosis 1+ Sodium Level 137 mmol/L Potassium Level 3.8 mmol/L Chloride Level 99 mmol/L Carbon Dioxide Level 29 mmol/L Anion Gap 9 Blood Urea Nitrogen 16 mg/dl Creatinine 1.08 mg/dl Est Glomerular Filtrat Rate mL/min > 60 mL/min Glucose Level 139 mg/dl Calcium Level 9.2 mg/dl Total Bilirubin 0.3 mg/dl Direct Bilirubin 0.00 mg/dl Indirect Bilirubin 0.3 mg/dl Aspartate Amino Transf (AST/SGOT) 17 IU/L Alanine Aminotransferase (ALT/SGPT) 8 IU/L Alkaline Phosphatase 160 IU/L Total Protein 7.1 g/dl Albumin 3.4 g/dl Globulin 3.70 g/dl Albumin/Globulin Ratio 0.91 Lipase 20 U/L Current Medications Medications Dose Sig/Nevaeh Start Time Status Last (Trade) Ordered Route PRN Stop Time Admin Dose Reason Admin Sodium 1,000 ml @ Q1H STAT 08/20/18 DC 08/20/18 Chloride 1,000 mls/hr IV 14:05 08/20/18 14:29 15:04 1 mg ONCE STAT 08/20/18 DC 08/20/18 Hydromorphone IV 14:05 08/20/18 14:29 HCl 14:07 (Dilaudid) Ondansetron 4 mg ONCE STAT 08/20/18 DC 08/20/18 HCl (Zofran IV 14:05 08/20/18 14:29 Inj) 14:07 125 mg ONCE ONCE 08/20/18 DC 08/20/18 Methylprednis IV 14:30 08/20/18 14:29 olone Sodium 14:31 Succinate (Solu-Medrol) Iohexol 150 ml STK-MED 08/20/18 DC 08/20/18 (Omnipaque ONCE .ROUTE 15:02 08/20/18 15:07 300mg/ ml) 15:03 Sodium 100 ml @ ud STK-MED 08/20/18 DC 08/20/18 Chloride ONCE .ROUTE 15:08/20/18 15:06 15:03 Procedures/MDM Ordering MD: ANH MILTON DO Location: E/R Room/Bed: PROCEDURE: CT Abdomen and Pelvis with contrast. CLINICAL INDICATION: Abdominal pain. TECHNIQUE: CT scan of the abdomen and pelvis with contrast was performed on a multi-detector high-resolution CT scanner. The patient was scanned following the uncomplicated intravenous administration of 80 cc of Omnipaque 300. Coronal and sagittal reformatted images were obtained from the axial source images. One or more of the following dose reduction techniques were used: Automated exposu re control, adjustment of the mA and/or kV according to patient size, use of iterative reconstruction technique. Images were reviewed on a high-resolution PACS workstation. DICOM images are available. The total exam CTDI equals 6.71 mGy and the total exam DLP equals 424.14 mGy-cm. COMPARISON: CT from 08/04/2018. FINDINGS: CT abdomen: Minimal bilateral lower lobe dependent atelectatic changes are present. Otherwise, the lung bases are clear. The heart size is normal, without christopher cardial thickening or effusion. The liver is normal in size and density without focal mass or intrahepatic biliary dilatation. The spleen is normal in size and homogeneous in density. The stomach is partially collapsed, but is grossly unremarkable. The pancreas as visualized is normal. The gallbladder is surgically absent. The biliary tree is unremarkable without evidence for biliary dilatation. The adrenal glands are symmetric and normal. The kidneys are unremarkable. No renal calcu tania or obstructive uropathy or mass lesion is seen. The aorta is of normal caliber. There is moderate aortoiliac atherosclerosis. There is no retroperitoneal lymphadenopathy. The trace hepatis region is clear. The small bowel and mesentery, as visualized, are unremarkable. There is circumferential colonic wall edema throughout the descending and sigmoid colon, similar to the prior exam. Prominent pericolonic lymph nodes are likely reactive in nature. CT pelvis: The small bowel loops situated within the pelvis are unremarkable. The pelvic organs are normal. The pelvic sidewalls and inguinal regions are clear. The appendix is normal. No mass, lymphadenopathy, or free fluid is seen. The bladder is normal. The surrounding osseous structures are unremarkable. No osteolytic or osteoblastic lesion is detected. IMPRESSION: 1. Persistent diffuse colonic wall edema throughout the descending and sigmoid colon, consistent with colitis, similar to the prior exam. Consider infectious or inflammatory etiologies. 2. Moderate aortoiliac atherosclerosis RPTAT: JJ .Guy Del Rio MD, MD Date Time Electronically viewed and signed by .Guy Del Rio MD, MD on 08/20/2018 15:44 .A/ CC: ANH MILTON DO [id number] Patient has a CAT scan showing there is diffuse colonic wall edema consistent with diffuse colitis he also has a bandemia with 26 bands. Going to admit him to the hospital for pain control, IV fluids, antibiotic therapy and observation for bandemia progression Departure Diagnosis: Primary Impression: Exacerbation of ulcerative colitis Digestive disease complication type: unspecified complication Qualified Codes: K51.919 - Ulcerative colitis, unspecified with unspecified complications Additional Impression: Bandemia Condition: Stable ANH MILTON DO Aug 20, 2018 14:12
[2018-08-20] MEDS ORDERED: METHYLPREDNISOLONE 125 MG INJ IV ONE (14:30)
[2018-08-20] MEDS ORDERED: IOHEXOL 300MG/ML 150 ML BTL ONE (15:02)
[2018-08-20] MEDS ORDERED: SOD CHLORIDE 0.9% 100 ML ONE (15:02)
[2018-08-20] MEDS ORDERED: SOD CHLORIDE 0.9% 1,000 ML IV SCH (16:25)
[2018-08-20] MEDS ORDERED: ONDANSETRON 4 MG INJ IV PRN ×2 (16:30→17:00)
[2018-08-20] MEDS ORDERED: ERTAPENEM SODIUM 1 GM in SOD CHLORIDE 0.9% 100 ML IVPB ONE (16:30)
[2018-08-20] MEDS ORDERED: ACETAMINOPHEN 325 MG TAB PO PRN ×2 (16:30→17:00)
[2018-08-20] MEDS ORDERED: NACL 0.9% 3 ML SYG IV SCH (17:00)
[2018-08-20] MEDS ORDERED: NEPA1.7D OP (17:20)
[2018-08-20] MEDS ORDERED: RAMI1.2510 PO (17:20)
[2018-08-20] MEDS ORDERED: PRED5DRO20 RIGHT EYE (17:20)
[2018-08-20] MEDS ORDERED: DICL2.5D11 RIGHT EYE (17:20)
--- NOTE | 2018-08-20 17:22 | HP ---
Date/Time of Note Date/Time of Note DATE: 08/20/18 TIME: 17:07 Assessment/Plan VTE Prophylaxis SCD applied (from Nsg): Yes Pharmacological prophylaxis: NA/contraindicated Pharm contraindication: bleeding Lines/Catheters IV Catheter Type (from Nrsg): Saline Lock Assessment/Plan Assessment/Plan 63 yo man with IDDM, Crohns, CAD, HTN presents with bloody diarrhea #Bloody diarrhea - Likely Crohn's flare - Will send C Diff - Empiric cipro - Prednisolone 40 BID, got 125 in the ED. - Cont mesalamine - Trial clear liquids. - Dr. Hendrickson consulted. #Anemia - Actually is higher than baseline at previous discharge - Will send iron panel #IDDM - Regular insulin sliding scale #CAD #HTN - Continue home antihypertensives - Hold aspirin for now DVT: SCDs GI: PPI Result Diagram: 08/20/18 1427 08/20/18 1427 HPI/ROS Admit Date/Time Admit Date/Time 20 August 2018 Hx of Present Illness Mr. Valadez is a Farsi-speaking gentleman with history of HTN, CAD s/p CABG, IDDM, and Crohn's disease who presents with abdominal pain and bloody diarrhea. He was recently hospitalized at [facility] 06/05-06/08 for Crohn's flare. He was discharged on a steroid taper which he completed in late June. Has been following Dr. Hendrickson outpatient. Trialed budesonide but patient could not tolerate it. Now back on mesalamine. The patient reports chronic aching, sque ezing mid abdominal pain for the last several months which worsens with food. Reports 30 lb weight loss over this past year. About 2-3 days ago he developed bloody stools and chills. Describes stools as ronak with bright red blood. He gets diarrhea immediately after eating and so has not been eating or drinking since yesterday. In the ED he was afebrile, vitals unremarkable. Hgb 11.5 which is increased from previously. Labs otherwise unremarkable. CT shows diffuse colon wall edema. ROS Denies fever, night sweats, headache, vision changes, dysphagia/odynophagia, oral ulcers, chest pain/pressure/palpitations, cough, dyspnea, constipation, nausea, vomiting, rashes, dysuria, hematuria, urinary obstructive symptoms. PMH/Family/Social Past Medical History Insulin dependent diabetes Crohn's disease CAD HTN Medications Current Medications Sodium Chloride 1,000 ml @ 80 mls/hr [id number] IV ; Start 08/20/18 at 16:25; Stop 08/21/18 at 04:54 Ondansetron HCl (Zofran Inj) 4 mg BRIDGE ORDER PRN IV NAUSEA/VOMITING; Start 08/20/18 at 16:30; Stop 08/21/18 at 16:29 Acetaminophen (Tylenol Tab) 650 mg ER BRIDGE PRN PO .MILD PAIN 1-3 OR TEMP; Start 08/20/18 at 16:30; Stop 08/21/18 at 16:29 Sodium Chloride 1,000 ml @ 80 mls/hr [id number] IV ; Start 08/20/18 at 16:49 IV Flush (NS 3 ml) 3 ml PER PROTOCOL IV ; Start 08/20/18 at 17:00; Status UNV Ondansetron HCl (Zofran Inj) 4 mg Q6H PRN IV NAUSEA/VOMITING; Start 08/20/18 at 17:00; Status UNV Acetaminophen (Tylenol Tab) 650 mg Q6H PRN PO .PAIN 1-3 OR TEMP; Start 08/20/18 at 17:00; Status UNV Pantoprazole (Protonix Iv) 40 mg DAILY@06 IV ; Start 08/21/18 at 06:00; Status UNV Coded Allergies: No Known Allergy (Unverified , 08/04/18) Past Surgical History CABG 15 years ago Cholecystectomy Past Surgical Hx: other Family History Significant Family History: no pertinent family hx Social History Alcohol Use: none Smoking Status: Former smoker (quit 7 years ago) Drug Use: none Exam/Review of Systems Vital Signs Vitals Vital Signs Date Temp Pulse Resp B/P (MAP) Pulse Ox O2 O2 Flow FiO2 Time Delivery Rate 08/20/18 98.9 99 18 115/62 99 13:44 (79) Exam Exam Gen: Well developed French man lying in gurney, no distress. Eyes: PERRL, no icterus HEENT: Moist mucous membranes, clear oropharynx, no ulcers Neck: No lymphadenopathy, supple Card: Regular rate and rhythm Chest: nontender. well healed sternotomy scar. Pulm: Clear to auscultation bilaterally Abd: Soft, nontender, nondistended. Hypoactive bowel sounds. No hepatosplenomegaly. Ext: No cyanosis/clubbing/edema Skin: cool, dry. JESENIA PIZANO MD Aug 20, 2018 17:18
[2018-08-20] MEDS ORDERED: GLUCOSE GEL 15 GRAM TUBE PO PRN ×2 (18:00)
[2018-08-20] MEDS ORDERED: GLUCAGON 1 MG INJ IM PRN (18:00)
[2018-08-20] MEDS ORDERED: GLUCOSE GEL 15 GRAM TUBE BUCCAL PRN (18:00)
[2018-08-20] MEDS ORDERED: DEXTROSE 50% 50 ML SYRINGE IV PRN ×2 (18:00)
[2018-08-20] MEDS: INSULIN ASPART [NOVOLOG] 3 ML PEN SC SCH ×2 (18:05→21:13)
[2018-08-20] MEDS: SOD CHLORIDE 0.9% 1,000 ML IV SCH (18:13)
[2018-08-20] MEDS: METHYLPREDNISOLONE 40 MG INJ IV SCH (18:18)
[2018-08-20 18:23] VITALS: BP 146/67; PULSE 77; RESP 18
[2018-08-20 20:00] VITALS: BP 139/66; PULSE 75; RESP 18
[2018-08-20] MEDS: ATORVASTATIN 20 MG TAB PO SCH (21:13)
[2018-08-20] MEDS: CIPROFLOXACIN 400MG/D5W 200 ML IVPB SCH (21:14)
[2018-08-20 21:51] VITALS: Ht 170.2 cm; Wt 69.1 kg
[2018-08-20] MEDS: GEMFIBROZIL 600 MG TAB PO SCH (22:17)
[2018-08-21 02:00] VITALS: BP 136/64; PULSE 69; RESP 18
[2018-08-21] MEDS: ACCU-CHEK XX SCH (02:13)
[2018-08-21] MEDS: METHYLPREDNISOLONE 40 MG INJ IV SCH ×2 (06:07→18:22)
[2018-08-21] MEDS: PANTOPRAZOLE 40 MG INJ IV SCH (06:10)
[2018-08-21 08:14] VITALS: BP 119/65; PULSE 73; RESP 18
[2018-08-21] MEDS: SOD CHLORIDE 0.9% 1,000 ML IV SCH ×3 (08:40→23:58)
[2018-08-21] MEDS: INSULIN ASPART [NOVOLOG] 3 ML PEN SC SCH ×4 (08:42→21:00)
[2018-08-21] MEDS: AMLODIPINE 2.5 MG TAB PO SCH (08:44)
[2018-08-21] MEDS: GEMFIBROZIL 600 MG TAB PO SCH ×2 (08:44→21:23)
[2018-08-21] MEDS: METOPROLOL (XL) 100 MG TAB PO SCH (08:44)
[2018-08-21] MEDS: ISOSORBIDE MONONITRATE 20 MG TAB PO SCH (08:45)
[2018-08-21] MEDS: CIPROFLOXACIN 400MG/D5W 200 ML IVPB SCH ×2 (08:57→21:21)
[2018-08-21] MEDS: MESALAMINE (EC) 400 MG CAP PO SCH ×3 (10:19→21:24)
--- NOTE | 2018-08-21 13:11 | PN ---
Date/Time of Note Date/Time of Note DATE: 08/21/18 TIME: 13:09 Assessment/Plan VTE Prophylaxis Risk score (from Ns)>0 risk: 3 SCD applied (from Ns): Yes Pharmacological prophylaxis: NA/contraindicated Pharm contraindication: bleeding Lines/Catheters [facility] Peripheral IV Assessment/Plan Assessment/Plan 63 yo man with IDDM, Crohns, CAD, HTN presents with bloody diarrhea #Bloody diarrhea - Likely Crohn's flare - C diff negative - Empiric cipro - Prednisolone 40 BID, got 125 in the ED. - Cont mesalamine - Trial clear liquids. - Dr. Hendrickson consulted. #Bacteremia - Pending final sensitivity and speciation - Continue current empiric cipro - Likely contaminant. #Anemia - Actually is higher than baseline at previous discharge, then had Hgb drop - iron panel pending. #IDDM - Regular insulin sliding scale #CAD #HTN - Continue home antihypertensives - Hold aspirin for now DVT: SCDs GI: PPI Result Diagram: 08/21/18 0526 08/21/18 05 Subjective 24 Hr Interval Summary Free Text/Dictation No acute overnight events. Tolerating clear liquid diet. Continues to have abdominal pain. Exam/Review of Systems Exam Vitals Vital Signs Date Temp Pulse Resp B/P (MAP) Pulse Ox O2 O2 Flow FiO2 Time Delivery Rate 08/21/18 98.1 73 18 119/65 97 Room Air 08:14 (83) Intake and Output 08/20/18 08/20/18 08/21/18 1515:00 23:00 07:00 IntakeIntake Total 400 ml 1180 ml OutputOutput Total 201 ml BalanceBalance 400 ml 979 ml Exam Gen: Well developed Armenian man lying in bed, no distress. Eyes: PERRL, no icterus HEENT: Moist mucous membranes, clear oropharynx, no ulcers Neck: No lymphadenopathy, supple Card: Regular rate and rhythm Chest: nontender. well healed sternotomy scar. Pulm: Clear to auscultation bilaterally Abd: Soft, nontender, nondistended. Hypoactive bowel sounds. No hepatosplenomegaly. Ext: No cyanosis/clubbing/edema Skin: cool, dry. Results Results 24hrs Laboratory Tests Test 08/20/18 14:27 08/20/18 18:22 08/20/18 21:06 08/21/18 02:11 White Blood Count 10.7 Red Blood Count 5.16 Hemoglobin 11.5 L Hematocrit 37.7 L Mean Corpuscular Volume 73.1 L Mean Corpuscular 22.3 L Hemoglobin Mean Corpuscular 30.5 L Hemoglobin Concent Red Cell Distribution 17.5 H Width Platelet Count 563 #H Mean Platelet Volume 8.6 Immature Granulocytes % 0.700 H Neutrophils % Segmented Neutrophils 46 % (Manual) Band Neutrophils % 26 H (Manual) Lymphocytes % Lymphocytes % (Manual) 20 Monocytes % Monocytes % (Manual) 5 Eosinophils % Eosinophils % (Manual) 1 Basophils % Basophils % (Manual) 2 Nucleated Red Blood 0.0 Cells % Immature Granulocytes # 0.080 H Neutrophils # Neutrophils # (Manual) 5.2 Band Neutrophils # 2.7 H Lymphocytes (Manual) 2.1 Lymphocytes # Monocytes # Monocytes # (Manual) 0.5 Eosinophils # Basophils # Basophils # (Manual) 0.2 H Nucleated Red Blood Cells # Platelet Estimate INCREASED Giant Platelets 1 H Polychromasia 3+ Poikilocytosis 2+ Anisocytosis 1+ Microcytosis 1+ Sodium Level 137 Potassium Level 3.8 Chloride Level 99 Carbon Dioxide Level 29 Anion Gap 9 Blood Urea Nitrogen 16 Creatinine 1.08 Est Glomerular Filtrat > 60 Rate mL/min Glucose Level 139 Calcium Level 9.2 Total Bilirubin 0.3 Direct Bilirubin 0.00 Indirect Bilirubin 0.3 Aspartate Amino 17 Transf (AST/SGOT) Alanine 8 L Aminotransferase (ALT/SG PT) Alkaline Phosphatase 160 H Total Protein 7.1 Albumin 3.4 Globulin 3.70 H Albumin/Globulin Ratio 0.91 Lipase 20 L Bedside Glucose 245 H 196 185 Test 08/21/18 05:26 08/21/18 07:55 08/21/18 11:59 White Blood Count 4.9 # Red Blood Count 4.32 L Hemoglobin 9.8 L Hematocrit 32.2 L Mean Corpuscular Volume 74.5 L Mean Corpuscular 22.7 L Hemoglobin Mean Corpuscular 30.4 L Hemoglobin Concent Red Cell Distribution 17.5 H Width Platelet Count 328 # Mean Platelet Volume 9.8 Immature Granulocytes % 1.200 H Neutrophils % 87.2 H Lymphocytes % 9.4 L Monocytes % 2.0 Eosinophils % 0.0 Basophils % 0.2 Nucleated Red Blood 0.0 Cells % Immature Granulocytes # 0.060 H Neutrophils # 4.3 Lymphocytes # 0.5 L Monocytes # 0.1 L Eosinophils # 0.0 Basophils # 0.0 Nucleated Red Blood 0.0 Cells # Sodium Level 137 Potassium Level 4.6 Chloride Level 101 Carbon Dioxide Level 27 Anion Gap 9 Blood Urea Nitrogen 13 Creatinine 0.72 Est Glomerular Filtrat > 60 Rate mL/min Glucose Level 176 Hemoglobin A1c 6.8 H Calcium Level 8.4 Phosphorus Level 4.0 Magnesium Level 2.0 Total Bilirubin 0.1 L Direct Bilirubin 0.00 Indirect Bilirubin 0.1 Aspartate Amino 11 L Transf (AST/SGOT) Alanine 15 Aminotransferase (ALT/SG PT) Alkaline Phosphatase 118 Total Protein 5.8 #L Albumin 2.7 L Globulin 3.10 Albumin/Globulin Ratio 0.87 Triglycerides Level 96 Cholesterol Level 118 LDL Cholesterol, 70 Calculated HDL Cholesterol 29 L Cholesterol/HDL Ratio 4.0 Thyroid Stimulating 0.131 L Hormone (TSH) Bedside Glucose 168 192 Medications Medication Current Medications Sodium Chloride 1,000 ml @ 80 mls/hr [id number] IV Last administered on 08/21/18 08:40; Admin Dose 80 MLS/HR; Start 08/20/18 at 16:49 IV Flush (NS 3 ml) 3 ml PER PROTOCOL IV ; Start 08/20/18 at 17:00 Ondansetron HCl (Zofran Inj) 4 mg Q6H PRN IV NAUSEA/VOMITING; Start 08/20/18 at 17:00 Acetaminophen (Tylenol Tab) 650 mg Q6H PRN PO .PAIN 1-3 OR TEMP Last administered on 08/21/18 06:11; Admin Dose 650 MG; Start 08/20/18 at 17:00 Pantoprazole (Protonix Iv) 40 mg DAILY@06 IV Last administered on 08/21/18 06:10; Admin Dose 40 MG; Start 08/21/18 at 06:00 Amlodipine Besylate (Norvasc) 2.5 mg DAILY PO Last administered on 08/21/18 08:44; Admin Dose 2.5 MG; Start 08/21/18 at 09:00 Atorvastatin Calcium (Lipitor) 20 mg QHS PO Last administered on 08/20/18 21:13; Admin Dose 20 MG; Start 08/20/18 at 21:00 Gemfibrozil (Lopid) 600 mg BID PO Last administered on 4/7/19at 08:44; Admin Dose 600 MG; Start 08/20/18 at 21:00 Isosorbide Mononitrate (Ismo) 20 mg DAILY PO Last administered on 08/21/18 08:45; Admin Dose 20 MG; Start 08/21/18 at 09:00 Metoprolol Succinate (Toprol Xl) 100 mg DAILY PO Last administered on 08/21/18 08:44; Admin Dose 100 MG; Start 08/21/18 at 09:00 Mesalamine (Delzicol Dr) 800 mg TID PO Last administered on 08/21/18 12:23; Admin Dose 800 MG; Start 08/21/18 at 09:00 Ciprofloxacin/ Dextrose 200 ml @ 200 mls/hr Q12 IVPB Last administered on 08/21/18 08:57; Admin Dose 200 MLS/HR; Start 08/20/18 at 21:00 Methylprednisolone Sodium Succinate (Solu-Medrol) 40 mg Q12H IV Last admin istered on 08/20/18 18:18; Admin Dose 40 MG; Start 08/20/18 at 18:30 Diagnostic Test (Pha) (Accu-Chek) 1 ea 02 XX Last administered on 08/21/18 02:13; Admin Dose 1 EA; Start 08/21/18 at 02:00 Insulin Aspart (Novolog Insulin Pen) NOVOLOG *MODERATE* ALGORITHM WITH MEALS BEDTIME SC Last administered on 08/21/18 12:23; Admin Dose 4 UNIT; Start 08/20/18 at 18:00 Miscellaneous Information 1 ea NOTE XX ; Start 08/20/18 at 18:00 Glucose (Glutose) 15 gm Q15M PRN PO DECREASED GLUCOSE; Start 08/20/18 at 18:00 Glucose (Glutose) 22.5 gm Q15M PRN PO DECREASED GLUCOSE; Start 08/20/18 at 18:00 Dextrose (D50w Syringe) 25 ml Q15M PRN IV DECREASED GLUCOSE; Start 08/20/18 at 18:00 Dextrose (D50w Syringe) 50 ml Q15M PRN IV DECREASED GLUCOSE; Start 08/20/18 at 18:00 Glucagon (Glucagen) 1 mg Q15M PRN IM DECREASED GLUCOSE; Start 08/20/18 at 18:00 Glucose (Glutose) 15 gm Q15M PRN BUCCAL DECREASED GLUCOSE; Start 08/20/18 at 18:00 JESENIA PIZANO MD Aug 21, 2018 13:11
[2018-08-21 14:50] VITALS: BP 104/51; PULSE 62; RESP 19
[2018-08-21] MEDS ORDERED: HYDROCODONE/APAP (5/325) TAB PO PRN (16:00)
[2018-08-21] MEDS ORDERED: HYOS0.1297 SL (19:39)
[2018-08-21] MEDS ORDERED: HYOSCYAMINE 0.125 MG SUBL TAB SL PRN (20:00)
[2018-08-21 20:08] VITALS: BP 108/59; PULSE 60; RESP 18
[2018-08-21] MEDS: ATORVASTATIN 20 MG TAB PO SCH (21:23)
[2018-08-22] MEDS: ACCU-CHEK XX SCH (02:00)
[2018-08-22 02:11] VITALS: BP 123/58; PULSE 58; RESP 18
[2018-08-22] MEDS ORDERED: VANCOMYCIN IV PER PHARMACY XX SCH (05:00)
[2018-08-22] MEDS: PANTOPRAZOLE 40 MG INJ IV SCH (05:26)
[2018-08-22] MEDS: METHYLPREDNISOLONE 40 MG INJ IV SCH ×2 (05:28→18:23)
[2018-08-22] MEDS ORDERED: VANCOMYCIN HCL 1.5 GM in SOD CHLORIDE 0.9% 250 ML IVPB SCH (07:00)
[2018-08-22] MEDS: INSULIN ASPART [NOVOLOG] 3 ML PEN SC SCH ×4 (08:00→20:58)
[2018-08-22] MEDS: CIPROFLOXACIN 400MG/D5W 200 ML IVPB SCH ×2 (08:28→23:21)
[2018-08-22] MEDS: MESALAMINE (EC) 400 MG CAP PO SCH ×3 (08:30→20:48)
[2018-08-22] MEDS: ISOSORBIDE MONONITRATE 20 MG TAB PO SCH (08:30)
[2018-08-22] MEDS: AMLODIPINE 2.5 MG TAB PO SCH (08:31)
[2018-08-22] MEDS: GEMFIBROZIL 600 MG TAB PO SCH ×2 (08:34→20:48)
[2018-08-22 08:48] VITALS: BP 102/59; PULSE 59; RESP 18
[2018-08-22] MEDS ORDERED: DICLOFENAC 0.1% 2.5 ML OPH RIGHT EYE SCH (09:00)
[2018-08-22] MEDS: METOPROLOL (XL) 100 MG TAB PO SCH (09:00)
[2018-08-22] MEDS ORDERED: PREDNISOLONE ACET 1% 5 ML OPH RIGHT EYE SCH (09:00)
[2018-08-22] MEDS ORDERED: [UNRECOGNIZED DRUG - OTHER] LEFT EYE SCH (14:00)
[2018-08-22 14:13] VITALS: BP 103/53; PULSE 55; RESP 18
--- NOTE | 2018-08-22 15:06 | CONS ---
Consultation Date/Type/Reason Admit Date/Time 20 August 2018 Date of Consultation: Aug 22, 2018 Type of Consult Gastroenterology Reason for Consultation Inflammatory bowel disease flareup Date/Time of Note DATE: 08/22/18 TIME: 15:04 Constitutional: improved, chills, febrile Eyes: no complaints ENT: no complaints Respiratory: no complaints Cardiovascular: no complaints Gastrointestinal: pain, blood, diarrhea, passing stool Genitourinary: no complaints Past Medical History Home Meds Active Scripts Prednisone* (Prednisone*) 20 Mg Tab, 40 MG PO DAILY for 5 Days, TAB Prov:MIMA PATHAK MD 08/05/18 Reported Medications Hyoscyamine Sulfate* (Hyoscyamine Sulfate*) 0.125 Mg Tab.subl, 0.125 MG SL Q8 PRN for DISTENSION/GAS/BLOATING, TAB 08/21/18 Nepafenac (ILEVRO) 1.7 Ml Drops.susp, 1 DROP OP Q12 for Left eye 08/20/18 Diclofenac Sodium* (Diclofenac Oph*) 2.5 Ml Drops, 1 DROP RIGHT EYE BID, #1 EA 08/20/18 Prednisolone Acetate* (Pred Forte*) 5 Ml Susp, 1 DROP RIGHT EYE BID, EA 08/20/18 Ramipril (Ramipril) 1.25 Mg Capsule, 1.25 MG PO DAILY, CAP 08/20/18 Metoclopramide HCl (Metoclopramide HCl) 10 Gm Powder, 10 GM MC 03/21/18 Mesalamine* (Asacol HD) 800 Mg Tablet.dr, 1800 MG PO TID, TAB 03/21/18 Aspirin (Low Dose Aspirin) 81 Mg Tablet.dr, 81 MG PO DAILY, #30 TAB 12/29/17 Gemfibrozil* (Gemfibrozil*) 600 Mg Tablet, 600 MG PO BID, TAB 12/29/17 Amlodipine Besylate* (Amlodipine Besylate*) 2.5 Mg Tablet, 2.5 MG PO DAILY, #30 TAB 12/29/17 Atorvastatin Calcium* (Atorvastatin Calcium*) 20 Mg Tablet, 20 MG PO QHS, #30 TAB 12/29/17 Metoprolol Succinate* (Toprol XL*) 100 Mg Tab.sr.24h, 100 MG PO DAILY, #30 TAB 12/29/17 Isosorbide Mononitrate* (Isosorbide Mononitrate*) 20 Mg Tablet, 20 MG PO DAILY, TAB 12/29/17 Pantoprazole* (Protonix*) 40 Mg Tablet.dr, 40 MG PO DAILY, TAB 12/29/17 Insulin Glargine,Hum.rec.anlog (Calixto Carlossherlynjazzy) 300 Unit/1 Ml Insuln.pen, 24 UNIT SQ QHS, EA 12/29/17 Medications Current Medications Sodium Chloride 1,000 ml @ 80 mls/hr [id number] IV Last administered on 08/21/18 23:58; Admin Dose 80 MLS/HR; Start 08/20/18 at 16:49 IV Flush (NS 3 ml) 3 ml PER PROTOCOL IV ; Start 08/20/18 at 17:00 Ondansetron HCl (Zofran Inj) 4 mg Q6H PRN IV NAUSEA/VOMITING; Start 08/20/18 at 17:00 Acetaminophen (Tylenol Tab) 650 mg Q6H PRN PO .PAIN 1-3 OR TEMP Last administered on 08/21/18 06:11; Admin Dose 650 MG; Start 08/20/18 at 17:00 Pantoprazole (Protonix Iv) 40 mg DAILY@06 IV Last administered on 08/22/18 05:26; Admin Dose 40 MG; Start 08/21/18 at 06:00 Amlodipine Besylate (Norvasc) 2.5 mg DAILY PO Last administered on 08/22/18 08:31; Admin Dose 2.5 MG; Start 08/21/18 at 09:00 Atorvastatin Calcium (Lipitor) 20 mg QHS PO Last administered on 08/21/18 21:23; Admin Dose 20 MG; Start 08/20/18 at 21:00 Gemfibrozil (Lopid) 600 mg BID PO Last administered on 08/22/18 08:34; Admin Dose 600 MG; Start 08/20/18 at 21:00 Isosorbide Mononitrate (Ismo) 20 mg DAILY PO Last administered on 08/22/18 08:30; Admin Dose 20 MG; Start 08/21/18 at 09:00 Metoprolol Succinate (Toprol Xl) 100 mg DAILY PO Last administered on 08/21/18 08:44; Admin Dose 100 MG; Start 08/21/18 at 09:00 Mesalamine (Delzicol Dr) 800 mg TID PO Last administered on 08/22/18 12:42; Admin Dose 800 MG; Start 08/21/18 at 09:00 Ciprofloxacin/ Dextrose 200 ml @ 200 mls/hr Q12 IVPB Last administered on 08/22/18 08:28; Admin Dose 200 MLS/HR; Start 08/20/18 at 21:00 Methylprednisolone Sodium Succinate (Solu-Medrol) 40 mg Q12H IV Last administered on 08/20/18 18:18; Admin Dose 40 MG; Start 08/20/18 at 18:30 Diagnostic Test (Pha) (Accu-Chek) 1 ea 02 XX Last administered on 08/21/18 02:13; Admin Dose 1 EA; Start 08/21/18 at 02:00 Insulin Aspart (Novolog Insulin Pen) NOVOLOG *MODERATE* ALGORITHM WITH MEALS BEDTIME SC Last administered on 08/21/18 18:08; Admin Dose 2 UNIT; Start 08/20/18 at 18:00 Miscellaneous Information 1 ea NOTE XX ; Start 08/20/18 at 18:00 Glucose (Glutose) 15 gm Q15M PRN PO DECREASED GLUCOSE; Start 08/20/18 at 18:00 Glucose (Glutose) 22.5 gm Q15M PRN PO DECREASED GLUCOSE; Start 08/20/18 at 18:00 Dextrose (D50w Syringe) 25 ml Q15M PRN IV DECREASED GLUCOSE; Start 08/20/18 at 18:00 Dextrose (D50w Syringe) 50 ml Q15M PRN IV DECREASED GLUCOSE; Start 08/20/18 at 18:00 Glucagon (Glucagen) 1 mg Q15M PRN IM DECREASED GLUCOSE; Start 08/20/18 at 18:00 Glucose (Glutose) 15 gm Q15M PRN BUCCAL DECREASED GLUCOSE; Start 08/20/18 at 18:00 Acetaminophen/ Hydrocodone Bitart ([place] (5/325)) 1 tab Q4H PRN PO MODERATE PAIN LEVEL 4-6 Last administered on 08/21/18at 15:47; Admin Dose 1 TAB; Start 08/21/18 at 16:00 Hyoscyamine (Levsin (Sl)) 0.125 mg Q8 PRN SL DISTENSION/GAS/BLOATING Last administered on 4/7/19at 23:52; Admin Dose 0.125 MG; Start 08/21/18 at 20:00 Diclofenac Sodium (Voltaren 0.1%) 1 drop BID RIGHT EYE ; Start 08/22/18 at 09:00 Prednisolone Acetate (Pred-Forte 1%) 1 drop BID RIGHT EYE ; Start 08/22/18 at 09:00 Non-Formulary Medication 1 ea DAILY@1400 LEFT EYE Last administered on 08/22/18at 12:49; Admin Dose 1 EA; Start 08/22/18 at 14:00 Vancomycin HCl (Vanco Iv Per Pharmacy) VANCOMYCIN PER PHARMACY PER PROTOCOL XX ; Start 08/22/18 at 05:00 Vancomycin HCl 250 ml @ 125 mls/hr Q12H IVPB ; Start 08/22/18 at 22:00 Allergies: Coded Allergies: No Known Allergy (Unverified , 08/04/18) Past Surgical History Past Surgical Hx: other Social History Alcohol Use: none Smoking Status: Former smoker Drug Use: none Exam/Review of Systems Exam Vitals Vital Signs Date Temp Pulse Resp B/P (MAP) Pulse Ox O2 O2 Flow FiO2 Time Delivery Rate 08/22/18 97.8 55 18 103/53 96 Room Air 14:13 (70) Intake and Output 08/21/18 08/21/18 08/22/18 1515:00 23:00 07:00 IntakeIntake Total 920 ml 920 ml 1020 ml BalanceBalance 920 ml 920 ml 1020 ml Results Result Diagram: 08/21/18 0526 08/21/18 0526 Results 24hrs Laboratory Tests Test 08/21/18 17:11 08/21/18 21:28 08/22/18 07:58 08/22/18 11:01 Bedside Glucose 178 132 86 Erythrocyte 47 H Sedimentation Rate C-Reactive Protein 4.3 H Test 08/22/18 12:04 Bedside Glucose 107 Medications Medication Current Medications Sodium Chloride 1,000 ml @ 80 mls/hr [id number] IV Last administered on 08/21/18at 23:58; Admin Dose 80 MLS/HR; Start 08/20/18 at 16:49 IV Flush (NS 3 ml) 3 ml PER PROTOCOL IV ; Start 08/20/18 at 17:00 Ondansetron HCl (Zofran Inj) 4 mg Q6H PRN IV NAUSEA/VOMITING; Start 08/20/18 at 17:00 Acetaminophen (Tylenol Tab) 650 mg Q6H PRN PO .PAIN 1-3 OR TEMP Last administered on 08/21/18 06:11; Admin Dose 650 MG; Start 08/20/18 at 17:00 Pantoprazole (Protonix Iv) 40 mg DAILY@06 IV Last administered on 08/22/18 05:2 6; Admin Dose 40 MG; Start 08/21/18 at 06:00 Amlodipine Besylate (Norvasc) 2.5 mg DAILY PO Last administered on 08/22/18 08:31; Admin Dose 2.5 MG; Start 08/21/18 at 09:00 Atorvastatin Calcium (Lipitor) 20 mg QHS PO Last administered on 08/21/18 21:23; Admin Dose 20 MG; Start 08/20/18 at 21:00 Gemfibrozil (Lopid) 600 mg BID PO Last administered on 08/22/18 08:34; Admin Dose 600 MG; Start 08/20/18 at 21:00 Isosorbide Mononitrate (Ismo) 20 mg DAILY PO Last administered on 08/22/18 08:30; Admin Dose 20 MG; Start 08/21/18 at 09:00 Metoprolol Succinate (Toprol Xl) 100 mg DAILY PO Last administered on 08/21/18 08:44; Admin Dose 100 MG; Start 08/21/18 at 09:00 Mesalamine (Delzicol Dr) 800 mg TID PO Last administered on 08/22/18 12:42; Admin Dose 800 MG; Start 08/21/18 at 09:00 Ciprofloxacin/ Dextrose 200 ml @ 200 mls/hr Q12 IVPB Last administered on 08/22/18 08:28; Admin Dose 200 MLS/HR; Start 08/20/18 at 21:00 Methylprednisolone Sodium Succinate (Solu-Medrol) 40 mg Q12H IV Last administered on 08/20/18 18:18; Admin Dose 40 MG; Start 08/20/18 at 18:30 Diagnostic Test (Pha) (Accu-Chek) 1 ea 02 XX Last administered on 08/21/18 02:13; Admin Dose 1 EA; Start 08/21/18 at 02:00 Insulin Aspart (Novolog Insulin Pen) NOVOLOG *MODERATE* ALGORITHM WITH MEALS BEDTIME SC Last administered on 08/21/18at 18:08; Admin Dose 2 UNIT; Start 08/20/18 at 18:00 Miscellaneous Information 1 ea NOTE XX ; Start 08/20/18 at 18:00 Glucose (Glutose) 15 gm Q15M PRN PO DECREASED GLUCOSE; Start 08/20/18 at 18:00 Glucose (Glutose) 22.5 gm Q15M PRN PO DECREASED GLUCOSE; Start 08/20/18 at 18:00 Dextrose (D50w Syringe) 25 ml Q15M PRN IV DECREASED GLUCOSE; Start 08/20/18 at 18:00 Dextrose (D50w Syringe) 50 ml Q15M PRN IV DECREASED GLUCOSE; Start 08/20/18 at 18:00 Glucagon (Glucagen) 1 mg Q15M PRN IM DECREASED GLUCOSE; Start 08/20/18 at 18:00 Glucose (Glutose) 15 gm Q15M PRN BUCCAL DECREASED GLUCOSE; Start 08/20/18 at 18:00 Acetaminophen/ Hydrocodone Bitart ([place] (5/325)) 1 tab Q4H PRN PO MODERATE PAIN LEVEL 4-6 Last administered on 08/21/18at 15:47; Admin Dose 1 TAB; Start 08/21/18 at 16:00 Hyoscyamine (Levsin (Sl)) 0.125 mg Q8 PRN SL DISTENSION/GAS/BLOATING Last administered on 08/21/18at 23:52; Admin Dose 0.125 MG; Start 08/21/18 at 20:00 Diclofenac Sodium (Voltaren 0.1%) 1 drop BID RIGHT EYE ; Start 08/22/18 at 09:00 Prednisolone Acetate (Pred-Forte 1%) 1 drop BID RIGHT EYE ; Start 08/22/18 at 09:00 Non-Formulary Medication 1 ea DAILY@1400 LEFT EYE Last administered on 08/22/18at 12:49; Admin Dose 1 EA; Start 08/22/18 at 14:00 Vancomycin HCl (Vanco Iv Per Pharmacy) VANCOMYCIN PER PHARMACY PER PROTOCOL XX ; Start 08/22/18 at 05:00 Vancomycin HCl 250 ml @ 125 mls/hr Q12H IVPB ; Start 08/22/18 at 22:00 MIRI SARABIA Aug 22, 2018 15:06
--- NOTE | 2018-08-22 15:07 | CONS ---
Assessment/Plan Assessment/Plan Hospital Course (Demo Recall) Summary Assessment and Plan: Assessment: Bloody diarrhea- likely 2/2 to UC flare Left-sided ulcerative colitis Bacteremia Plan: We will advance diet to low residue Continues to take [id number] to change to prednisone when able to tolerate p.o. intake Monitor ESR/CRP Pt follow-up with GI after discharge may need change in mesalamine to 6-MP? Encourage ambulation Will add Rowasa qHS to regimen Patient seen in collaboration with Dr. Hendrickson CC: EARLENE HENDRICKSON MD ; Consultation Date/Type/Reason Admit Date/Time 20 August 2018 Date of Consultation: Aug 22, 2018 Type of Consult GI Reason for Consultation UC flare Date/Time of Note DATE: 08/22/18 TIME: 15:04 Hx of Present Illness This is a 63-year-old male who is well-known to GI services. He was evaluated in March 2018, underwent EGD and colonoscopy found to have left-sided ulcerative colitis and was initially started on prednisone and mesalamine. With outpatient management prednisone was changed to budesonide and the mesalamine was changed to a different type of mesalamine. Patient did not tolerate and symptoms became worse when he then presented to the ED was evaluated for short period of time and subsequently discharged. However symptoms progressed, he developed bloody diarrhea along with chills and generalized fatigue. Patient return to ED for further evaluation. Workup he was noted to have left-sided colitis infectious versus inflammatory given history patient was started on mesalamine and corticosteroid via IV. Additionally C. difficile was checked and is negative blood cultures were checked and deemed to be positive patient was started on an tibiotics. GI has been consulted for further workup currently patient states he is not having any bowel movements he is been on a clear liquid diet hemoglobin has been trending down. She is patient notes no bloody stool today however continues to have left lower quadrant pain. We will plan to keep current regimen and will add Rowasa CA nightly continue to monitor labs and will advance diet Review of Systems: A 12 system, review was conducted and is negative except as noted in the HPI or here. Past Medical History Home Meds Active Scripts Prednisone* (Prednisone*) 20 Mg Tab, 40 MG PO DAILY for 5 Days, TAB Prov:MIMA PATHAK MD 08/05/18 Reported Medications Hyoscyamine Sulfate* (Hyoscyamine Sulfate*) 0.125 Mg Tab.subl, 0.125 MG SL Q8 PRN for DISTENSION/GAS/BLOATING, TAB 08/21/18 Nepafenac (ILEVRO) 1.7 Ml Drops.susp, 1 DROP OP Q12 for Left eye 08/20/18 Diclofenac Sodium* (Diclofenac Oph*) 2.5 Ml Drops, 1 DROP RIGHT EYE BID, #1 EA 08/20/18 Prednisolone Acetate* (Pred Forte*) 5 Ml Susp, 1 DROP RIGHT EYE BID, EA 08/20/18 Ramipril (Ramipril) 1.25 Mg Capsule, 1.25 MG PO DAILY, CAP 08/20/18 Metoclopramide HCl (Metoclopramide HCl) 10 Gm Powder, 10 GM MC 03/21/18 Mesalamine* (Asacol HD) 800 Mg Tablet.dr, 1800 MG PO TID, TAB 03/21/18 Aspirin (Low Dose Aspirin) 81 Mg Tablet.dr, 81 MG PO DAILY, #30 TAB 12/29/17 Gemfibrozil* (Gemfibrozil*) 600 Mg Tablet, 600 MG PO BID, TAB 12/29/17 Amlodipine Besylate* (Amlodipine Besylate*) 2.5 Mg Tablet, 2.5 MG PO DAILY, #30 TAB 12/29/17 Atorvastatin Calcium* (Atorvastatin Calcium*) 20 Mg Tablet, 20 MG PO QHS, #30 TAB 12/29/17 Metoprolol Succinate* (Toprol XL*) 100 Mg Tab.sr.24h, 100 MG PO DAILY, #30 TAB 12/29/17 Isosorbide Mononitrate* (Isosorbide Mononitrate*) 20 Mg Tablet, 20 MG PO DAILY, TAB 12/29/17 Pantoprazole* (Protonix*) 40 Mg Tablet.dr, 40 MG PO DAILY, TAB 12/29/17 Insulin Glargine,Hum.rec.anlog (Calixto Pineda) 300 Unit/1 Ml Insuln.pen, 24 UNIT SQ QHS, EA 12/29/17 Medications Current Medications Sodium Chloride 1,000 ml @ 80 mls/hr [id number] IV Last administered on 08/21/18at 23:58; Admin Dose 80 MLS/HR; Start 08/20/18 at 16:49 IV Flush (NS 3 ml) 3 ml PER PROTOCOL IV ; Start 08/20/18 at 17:00 Ondansetron HCl (Zofran Inj) 4 mg Q6H PRN IV NAUSEA/VOMITING; Start 08/20/18 at 17:00 Acetaminophen (Tylenol Tab) 650 mg Q6H PRN PO .PAIN 1-3 OR TEMP Last administered on 08/21/18 06:11; Admin Dose 650 MG; Start 08/20/18 at 17:00 Pantoprazole (Protonix Iv) 40 mg DAILY@06 IV Last administered on 08/22/18 05:26; Admin Dose 40 MG; Start 08/21/18 at 06:00 Amlodipine Besylate (Norvasc) 2.5 mg DAILY PO Last administered on 08/22/18 08:31; Admin Dose 2.5 MG; Start 08/21/18 at 09:00 Atorvastatin Calcium (Lipitor) 20 mg QHS PO Last administered on 08/21/18 21:23; Admin Dose 20 MG; Start 08/20/18 at 21:00 Gemfibrozil (Lopid) 600 mg BID PO Last administered on 08/22/18 08:34; Admin Dose 600 MG; Start 08/20/18 at 21:00 Isosorbide Mononitrate (Ismo) 20 mg DAILY PO Last administered on 08/22/18 08:30; Admin Dose 20 MG; Start 08/21/18 at 09:00 Metoprolol Succinate (Toprol Xl) 100 mg DAILY PO Last administered on 08/21/18 08:44; Admin Dose 100 MG; Start 08/21/18 at 09:00 Mesalamine (Delzicol Dr) 800 mg TID PO Last administered on 08/22/18 12:42; Admin Dose 800 MG; Start 08/21/18 at 09:00 Ciprofloxacin/ Dextrose 200 ml @ 200 mls/hr Q12 IVPB Last administered on 08/22/18 08:28; Admin Dose 200 MLS/HR; Start 08/20/18 at 21:00 Methylprednisolone Sodium Succinate (Solu-Medrol) 40 mg Q12H IV Last administered on 08/20/18 18:18; Admin Dose 40 MG; Start 08/20/18 at 18:30 Diagnostic Test (Pha) (Accu-Chek) 1 ea 02 XX Last administered on 08/21/18at 02:13; Admin Dose 1 EA; Start 08/21/18 at 02:00 Insulin Aspart (Novolog Insulin Pen) NOVOLOG *MODERATE* ALGORITHM WITH MEALS BEDTIME SC Last administered on 08/21/18at 18:08; Admin Dose 2 UNIT; Start 08/20/18 at 18:00 Miscellaneous Information 1 ea NOTE XX ; Start 08/20/18 at 18:00 Glucose (Glutose) 15 gm Q15M PRN PO DECREASED GLUCOSE; Start 08/20/18 at 18:00 Glucose (Glutose) 22.5 gm Q15M PRN PO DECREASED GLUCOSE; Start 08/20/18 at 18:00 Dextrose (D50w Syringe) 25 ml Q15M PRN IV DECREASED GLUCOSE; Start 08/20/18 at 18:00 Dextrose (D50w Syringe) 50 ml Q15M PRN IV DECREASED GLUCOSE; Start 08/20/18 at 18:00 Glucagon (Glucagen) 1 mg Q15M PRN IM DECREASED GLUCOSE; Start 08/20/18 at 18:00 Glucose (Glutose) 15 gm Q15M PRN BUCCAL DECREASED GLUCOSE; Start 08/20/18 at 18:00 Acetaminophen/ Hydrocodone Bitart ([place] (5/325)) 1 tab Q4H PRN PO MODERATE PAIN LEVEL 4-6 Last administered on 08/21/18at 15:47; Admin Dose 1 TAB; Start 08/21/18 at 16:00 Hyoscyamine (Levsin (Sl)) 0.125 mg Q8 PRN SL DISTENSION/GAS/BLOATING Last administered on 08/21/18at 23:52; Admin Dose 0.125 MG; Start 08/21/18 at 20:00 Diclofenac Sodium (Voltaren 0.1%) 1 drop BID RIGHT EYE ; Start 08/22/18 at 09:00 Prednisolone Acetate (Pred-Forte 1%) 1 drop BID RIGHT EYE ; Start 08/22/18 at 09:00 Non-Formulary Medication 1 ea DAILY@1400 LEFT EYE Last administered on 08/22/18at 12:49; Admin Dose 1 EA; Start 08/22/18 at 14:00 Vancomycin HCl (Vanco Iv Per Pharmacy) VANCOMYCIN PER PHARMACY PER PROTOCOL XX ; Start 08/22/18 at 05:00 Vancomycin HCl 250 ml @ 125 mls/hr Q12H IVPB ; Start 08/22/18 at 22:00 Allergies: Coded Allergies: No Known Allergy (Unverified , 08/04/18) Past Surgical History Past Surgical Hx: other Social History Alcohol Use: none Smoking Status: Former smoker Drug Use: none Exam/Review of Systems Exam Vitals Vital Signs Date Temp Pulse Resp B/P (MAP) Pulse Ox O2 O2 Flow FiO2 Time Delivery Rate 08/22/18 97.8 55 18 103/53 96 Room Air 14:13 (70) Intake and Output 08/21/18 08/21/18 08/22/18 1515:00 23:00 07:00 IntakeIntake Total 920 ml 920 ml 1020 ml BalanceBalance 920 ml 920 ml 1020 ml Exam PHYSICAL EXAMINATION: GENERAL: Alert & oriented x 3, in no acute distress SKIN: No lesions EYES: Pupils equal reactive to light, no discharge. EARS/NOSE AND THROAT: Ears normal, nose normal, oropharynx normal NECK: Supple, no masses, thyroid normal CHEST: Inspection within normal limits. CARDIOVASCULAR: Heart: Regular rate and rhythm, no murmurs, gallops or rubs. RESPIRATORY: Lungs clear to auscultation and percussion, no wheezing, no rubs GASTROINTESTINAL AND LIVER: Abdomen: Soft, LLQ tenderness, non-distended, no hernias, no masses, no organomegaly, no ascites, no guarding, no rebound tenderness, normoactive bowel sounds. Rectal: Deferred. EXTREMITIES: No cyanosis, clubbing or edema. Results Result Diagram: 08/21/18 0508/21/18 05 Results 24hrs Laboratory Tests Test 08/21/18 17:11 08/21/18 21:28 08/22/18 07:58 08/22/18 11:01 Bedside Glucose 178 132 86 Erythrocyte 47 H Sedimentation Rate C-Reactive Protein 4.3 H Test 08/22/18 12:04 Bedside Glucose 107 Medications Medication Current Medications Sodium Chloride 1,000 ml @ 80 mls/hr [id number] IV Last administered on 08/21/18at 23:58; Admin Dose 80 MLS/HR; Start 08/20/18 at 16:49 IV Flush (NS 3 ml) 3 ml PER PROTOCOL IV ; Start 08/20/18 at 17:00 Ondansetron HCl (Zofran Inj) 4 mg Q6H PRN IV NAUSEA/VOMITING; Start 08/20/18 at 17:00 Acetaminophen (Tylenol Tab) 650 mg Q6H PRN PO .PAIN 1-3 OR TEMP Last administered on 08/21/18 06:11; Admin Dose 650 MG; Start 08/20/18 at 17:00 Pantoprazole (Protonix Iv) 40 mg DAILY@06 IV Last administered on 08/22/18 05:2 6; Admin Dose 40 MG; Start 08/21/18 at 06:00 Amlodipine Besylate (Norvasc) 2.5 mg DAILY PO Last administered on 08/22/18 08:31; Admin Dose 2.5 MG; Start 08/21/18 at 09:00 Atorvastatin Calcium (Lipitor) 20 mg QHS PO Last administered on 08/21/18 21:23; Admin Dose 20 MG; Start 08/20/18 at 21:00 Gemfibrozil (Lopid) 600 mg BID PO Last administered on 08/22/18 08:34; Admin Dose 600 MG; Start 08/20/18 at 21:00 Isosorbide Mononitrate (Ismo) 20 mg DAILY PO Last administered on 08/22/18 08:30; Admin Dose 20 MG; Start 08/21/18 at 09:00 Metoprolol Succinate (Toprol Xl) 100 mg DAILY PO Last administered on 08/21/18 08:44; Admin Dose 100 MG; Start 08/21/18 at 09:00 Mesalamine (Delzicol Dr) 800 mg TID PO Last administered on 08/22/18 12:42; Admin Dose 800 MG; Start 08/21/18 at 09:00 Ciprofloxacin/ Dextrose 200 ml @ 200 mls/hr Q12 IVPB Last administered on 08/22/18 08:28; Admin Dose 200 MLS/HR; Start 08/20/18 at 21:00 Methylprednisolone Sodium Succinate (Solu-Medrol) 40 mg Q12H IV Last administered on 08/20/18 18:18; Admin Dose 40 MG; Start 08/20/18 at 18:30 Diagnostic Test (Pha) (Accu-Chek) 1 ea 02 XX Last administered on 08/21/18 02:13; Admin Dose 1 EA; Start 08/21/18 at 02:00 Insulin Aspart (Novolog Insulin Pen) NOVOLOG *MODERATE* ALGORITHM WITH MEALS BEDTIME SC Last administered on 08/21/18 18:08; Admin Dose 2 UNIT; Start 08/20/18 at 18:00 Miscellaneous Information 1 ea NOTE XX ; Start 08/20/18 at 18:00 Glucose (Glutose) 15 gm Q15M PRN PO DECREASED GLUCOSE; Start 08/20/18 at 18:00 Glucose (Glutose) 22.5 gm Q15M PRN PO DECREASED GLUCOSE; Start 08/20/18 at 18:00 Dextrose (D50w Syringe) 25 ml Q15M PRN IV DECREASED GLUCOSE; Start 08/20/18 at 18:00 Dextrose (D50w Syringe) 50 ml Q15M PRN IV DECREASED GLUCOSE; Start 08/20/18 at 18:00 Glucagon (Glucagen) 1 mg Q15M PRN IM DECREASED GLUCOSE; Start 08/20/18 at 18:00 Glucose (Glutose) 15 gm Q15M PRN BUCCAL DECREASED GLUCOSE; Start 08/20/18 at 18:00 Acetaminophen/ Hydrocodone Bitart ([place] (5/325)) 1 tab Q4H PRN PO MODERATE PAIN LEVEL 4-6 Last administered on 08/21/18at 15:47; Admin Dose 1 TAB; Start 08/21/18 at 16:00 Hyoscyamine (Levsin (Sl)) 0.125 mg Q8 PRN SL DISTENSION/GAS/BLOATING Last administered on 08/21/18at 23:52; Admin Dose 0.125 MG; Start 08/21/18 at 20:00 Diclofenac Sodium (Voltaren 0.1%) 1 drop BID RIGHT EYE ; Start 08/22/18 at 09:00 Prednisolone Acetate (Pred-Forte 1%) 1 drop BID RIGHT EYE ; Start 08/22/18 at 09:00 Non-Formulary Medication 1 ea DAILY@1400 LEFT EYE Last administered on 08/22/18at 12:49; Admin Dose 1 EA; Start 08/22/18 at 14:00 Vancomycin HCl (Vanco Iv Per Pharmacy) VANCOMYCIN PER PHARMACY PER PROTOCOL XX ; Start 08/22/18 at 05:00 Vancomycin HCl 250 ml @ 125 mls/hr Q12H IVPB ; Start 08/22/18 at 22:00 DAREN MCKNIGHT Aug 22, 2018 15:07
--- NOTE | 2018-08-22 15:39 | PN ---
Date/Time of Note Date/Time of Note DATE: 08/22/18 TIME: 15:29 Assessment/Plan VTE Prophylaxis Risk score (from Nsg)>0 risk: 3 SCD applied (from Nsg): Yes Pharmacological prophylaxis: other Lines/Catheters IV Catheter Type (from Nrsg): Peripheral IV Assessment/Plan Hospital Course S: Patient seen by GI team earlier today. O: VS - see below PE: Gen: Well developed [place] man lying in bed, no distress. Eyes: PERRL, no icterus HEENT: Moist mucous membranes, clear oropharynx, no ulcers Neck: No lymphadenopathy, supple Card: Regular rate and rhythm Chest: nontender. well healed sternotomy scar. Pulm: Clear to auscultation bilaterally Abd: Soft, nontender, nondistended. Hypoactive bowel sounds. No hepat osplenomegaly. Ext: No cyanosis/clubbing/edema Skin: cool, dry. Assessment/Plan: 63 yo man with IDDM, Crohns, CAD, HTN presents with bloody diarrhea, likely secondary to inflammatory bowel disease flare. #Bloody diarrhea- Likely Crohn's flare- C diff negative -For now continue empiric cipro -Solu-Medrol 40 mg IV twice daily - Cont mesalamine, per GI team also Rowasa qHS added to regimen -Per GI team, change diet to low residue #Bacteremia- Pending final sensitivity and speciation, possibly contaminant? -Continue current antibiotics, follow final culture results #Anemia -hemoglobin today 9.8 -Monitor CBC, follow-up on iron panel results #IDDM - Regular insulin sliding scale #HTN -blood pressure stable - Continue home antihypertensives - Holding aspirin for now #CAD - monitor DVT: SCDs GI: PPI Result Diagram: 08/21/18 0526 08/21/18 0526 Results 24hrs Laboratory Tests Test 08/21/18 17:11 08/21/18 21:28 08/22/18 07:58 08/22/18 11:01 Bedside Glucose 178 132 86 Erythrocyte 47 H Sedimentation Rate C-Reactive Protein 4.3 H Test 08/22/18 12:04 Bedside Glucose 107 Exam/Review of Systems Exam Vitals Vital Signs Date Temp Pulse Resp B/P (MAP) Pulse Ox O2 O2 Flow FiO2 Time Delivery Rate 08/22/18 97.8 55 18 103/53 96 Room Air 14:13 (70) Intake and Output 08/21/18 08/21/18 08/22/18 1515:00 23:00 07:00 IntakeIntake Total 920 ml 920 ml 1020 ml BalanceBalance 920 ml 920 ml 1020 ml Results Results 24hrs Laboratory Tests Test 08/21/18 17:11 08/21/18 21:28 08/22/18 07:58 08/22/18 11:01 Bedside Glucose 178 132 86 Erythrocyte 47 H Sedimentation Rate C-Reactive Protein 4.3 H Test 08/22/18 12:04 Bedside Glucose 107 Medications Medication Current Medications Sodium Chloride 1,000 ml @ 80 mls/hr [id number] IV Last administered on 08/21/18 23:58; Admin Dose 80 MLS/HR; Start 08/20/18 at 16:49 IV Flush (NS 3 ml) 3 ml PER PROTOCOL IV ; Start 08/20/18 at 17:00 Ondansetron HCl (Zofran Inj) 4 mg Q6H PRN IV NAUSEA/VOMITING; Start 08/20/18 at 17:00 Acetaminophen (Tylenol Tab) 650 mg Q6H PRN PO .PAIN 1-3 OR TEMP Last administered on 08/21/18 06:11; Admin Dose 650 MG; Start 08/20/18 at 17:00 Pantoprazole (Protonix Iv) 40 mg DAILY@06 IV Last administered on 08/22/18 05:26; Admin Dose 40 MG; Start 08/21/18 at 06:00 Amlodipine Besylate (Norvasc) 2.5 mg DAILY PO Last administered on 08/22/18 08:31; Admin Dose 2.5 MG; Start 08/21/18 at 09:00 Atorvastatin Calcium (Lipitor) 20 mg QHS PO Last administered on 08/21/18 21:23; Admin Dose 20 MG; Start 08/20/18 at 21:00 Gemfibrozil (Lopid) 600 mg BID PO Last administered on 08/22/18 08:34; Admin Dose 600 MG; Start 08/20/18 at 21:00 Isosorbide Mononitrate (Ismo) 20 mg DAILY PO Last administered on 08/22/18 08:30; Admin Dose 20 MG; Start 08/21/18 at 09:00 Metoprolol Succinate (Toprol Xl) 100 mg DAILY PO Last administered on 08/21/18 08:44; Admin Dose 100 MG; Start 08/21/18 at 09:00 Mesalamine (Delzicol Dr) 800 mg TID PO Last administered on 08/22/18 12:42; Admin Dose 800 MG; Start 08/21/18 at 09:00 Ciprofloxacin/ Dextrose 200 ml @ 200 mls/hr Q12 IVPB Last administered on 08/22/18 08:28; Admin Dose 200 MLS/HR; Start 08/20/18 at 21:00 Methylprednisolone Sodium Succinate (Solu-Medrol) 40 mg Q12H IV Last administered on 08/20/18 18:18; Admin Dose 40 MG; Start 08/20/18 at 18:30 Diagnostic Test (Pha) (Accu-Chek) 1 ea 02 XX Last administered on 08/21/18 02:13; Admin Dose 1 EA; Start 08/21/18 at 02:00 Insulin Aspart (Novolog Insulin Pen) NOVOLOG *MODERATE* ALGORITHM WITH MEALS BEDTIME SC Last administered on 08/21/18 18:08; Admin Dose 2 UNIT; Start 08/20/18 at 18:00 Miscellaneous Information 1 ea NOTE XX ; Start 08/20/18 at 18:00 Glucose (Glutose) 15 gm Q15M PRN PO DECREASED GLUCOSE; Start 08/20/18 at 18:00 Glucose (Glutose) 22.5 gm Q15M PRN PO DECREASED GLUCOSE; Start 08/20/18 at 18:00 Dextrose (D50w Syringe) 25 ml Q15M PRN IV DECREASED GLUCOSE; Start 08/20/18 at 18:00 Dextrose (D50w Syringe) 50 ml Q15M PRN IV DECREASED GLUCOSE; Start 08/20/18 at 18:00 Glucagon (Glucagen) 1 mg Q15M PRN IM DECREASED GLUCOSE; Start 08/20/18 at 18:00 Glucose (Glutose) 15 gm Q15M PRN BUCCAL DECREASED GLUCOSE; Start 08/20/18 at 18:00 Acetaminophen/ Hydrocodone Bitart ([place] (5/325)) 1 tab Q4H PRN PO MODERATE PAIN LEVEL 4-6 Last administered on 08/21/18at 15:47; Admin Dose 1 TAB; Start 08/21/18 at 16:00 Hyoscyamine (Levsin (Sl)) 0.125 mg Q8 PRN SL DISTENSION/GAS/BLOATING Last administered on 08/21/18at 23:52; Admin Dose 0.125 MG; Start 08/21/18 at 20:00 Diclofenac Sodium (Voltaren 0.1%) 1 drop BID RIGHT EYE ; Start 08/22/18 at 09:00 Prednisolone Acetate (Pred-Forte 1%) 1 drop BID RIGHT EYE ; Start 08/22/18 at 09:00 Non-Formulary Medication 1 ea DAILY@1400 LEFT EYE Last administered on 08/22/18at 12:49; Admin Dose 1 EA; Start 08/22/18 at 14:00 Vancomycin HCl (Vanco Iv Per Pharmacy) VANCOMYCIN PER PHARMACY PER PROTOCOL XX ; Start 08/22/18 at 05:00 Vancomycin HCl 250 ml @ 125 mls/hr Q12H IVPB ; Start 08/22/18 at 22:00 Mesalamine (Rowasa) 4 gm HS MI ; Start 08/22/18 at 21:00; Status UNKARIE SIM Aug 22, 2018 15:39
[2018-08-22] MEDS: SOD CHLORIDE 0.9% 1,000 ML IV SCH (17:38)
[2018-08-22] MEDS: PREDNISOLONE ACET 1% 5 ML OPH RIGHT EYE SCH (18:23)
[2018-08-22] MEDS: DICLOFENAC 0.1% 2.5 ML OPH RIGHT EYE SCH (18:25)
[2018-08-22] MEDS ORDERED: VANCOMYCIN 1 GM 250 ML IVPB SCH (19:00)
[2018-08-22 20:06] VITALS: BP 111/56; PULSE 65; RESP 20
[2018-08-22] MEDS: ATORVASTATIN 20 MG TAB PO SCH (20:48)
[2018-08-22] MEDS ORDERED: MESALAMINE 4 GM/60 ML ENEMA PR SCH (21:00)
[2018-08-22] MEDS: VANCOMYCIN 1 GM 250 ML IVPB SCH (21:14)
[2018-08-23] MEDS: DICLOFENAC 0.1% 2.5 ML OPH RIGHT EYE SCH ×4 (00:27→18:10)
[2018-08-23] MEDS: PREDNISOLONE ACET 1% 5 ML OPH RIGHT EYE SCH ×4 (00:29→18:09)
[2018-08-23] MEDS: ACCU-CHEK XX SCH (02:00)
[2018-08-23 02:28] VITALS: BP 105/63; PULSE 68; RESP 18
[2018-08-23] MEDS: SOD CHLORIDE 0.9% 1,000 ML IV SCH ×2 (06:03→20:11)
[2018-08-23] MEDS: METHYLPREDNISOLONE 40 MG INJ IV SCH ×2 (06:04→19:37)
[2018-08-23] MEDS: PANTOPRAZOLE 40 MG INJ IV SCH (06:04)
[2018-08-23 08:00] VITALS: BP 143/68; PULSE 86; RESP 18
[2018-08-23] MEDS: INSULIN ASPART [NOVOLOG] 3 ML PEN SC SCH ×4 (08:00→20:52)
[2018-08-23] MEDS: CIPROFLOXACIN 400MG/D5W 200 ML IVPB SCH ×2 (09:26→21:15)
[2018-08-23] MEDS: MESALAMINE (EC) 400 MG CAP PO SCH ×3 (09:33→20:53)
[2018-08-23] MEDS: GEMFIBROZIL 600 MG TAB PO SCH ×3 (09:34→21:00)
[2018-08-23] MEDS: AMLODIPINE 2.5 MG TAB PO SCH (09:35)
[2018-08-23] MEDS: ISOSORBIDE MONONITRATE 20 MG TAB PO SCH (09:35)
[2018-08-23] MEDS: METOPROLOL (XL) 100 MG TAB PO SCH (09:36)
[2018-08-23] MEDS: MESALAMINE 4 GM/60 ML ENEMA PR SCH (09:36)
[2018-08-23] MEDS: VANCOMYCIN 1 GM 250 ML IVPB SCH (10:58)
[2018-08-23] MEDS ORDERED: NEPAFENAC 0.3% LEFT EYE SCH (12:00)
[2018-08-23] MEDS ORDERED: PREDNISOLONE ACET 1% 5 ML OPH LEFT EYE SCH (12:00)
[2018-08-23] MEDS: PREDNISOLONE ACET 1% 5 ML OPH LEFT EYE SCH (12:53)
[2018-08-23 14:00] VITALS: BP 138/76; PULSE 96; RESP 20
--- NOTE | 2018-08-23 14:30 | PN ---
Date/Time of Note Date/Time of Note DATE: 08/23/18 TIME: 14:25 Assessment/Plan VTE Prophylaxis Risk score (from Ns)>0 risk: 3 [place] [facility] [place]CD contraindicated: other Pharmacological prophylaxis: other Lines/Catheters IV C[facility]ter Type (from [facility]): Peripheral IV Assessment/Plan Assessment/Plan 1. Ulcerative colitis, flare, on soluMedrol, mesalamine(oral and enema), follow up with GI 2. COAGULASE NEGATIVE STAPH bacteremia, ?contamination, repeat blood culture, continue on cipro 3. HTN, controlled 4. Dyslipidemia, on lipitor and lopid Result Diagram: 08/23/1851608/23/18516 Results 24hrs Laboratory Tests Test 08/22/18 17:34 08/22/18 20:57 08/23/18 05:17 08/23/18 07:45 Bedside Glucose 108 141 138 White Blood Count 5.4 Red Blood Count 4.14 L Hemoglobin 9.3 L Hematocrit 30.3 L Mean Corpuscular Volume 73.2 L Mean Corpuscular 22.5 L Hemoglobin Mean Corpuscular 30.7 L Hemoglobin Concent Red Cell Distribution 17.8 H Width Platelet Count 361 Mean Platelet Volume 9.4 Immature Granulocytes % 2.000 H Neutrophils % 87.4 H Segmented Neutrophils 82 H % (Manual) Band Neutrophils % 12 H (Manual) Lymphocytes % 8.0 L Lymphocytes % (Manual) 5 L Reactive Lymphocytes 1 H % (Manual) Monocytes % 2.4 Eosinophils % 0.0 Basophils % 0.2 Nucleated Red Blood 1 H Cells % Immature Granulocytes # 0.110 H Neutrophils # 4.7 Neutrophils # (Manual) 4.5 Band Neutrophils # 0.6 Lymphocytes (Manual) 0.2 L Lymphocytes # 0.4 L Reactive Lymphocytes # 0.0 Monocytes # 0.1 L Eosinophils # 0.0 Basophils # 0.0 Nucleated Red Blood 0.0 Cells # Platelet Estimate NORMAL Polychromasia 3+ Hypochromasia 1+ Poikilocytosis 2+ Anisocytosis 2+ Microcytosis 2+ Target Cells 1+ Ovalocytes 1+ Elliptocytes 1+ Erythrocyte 50.0 H Sedimentation Rate Sodium Level 137 Potassium Level 4.2 Chloride Level 104 Carbon Dioxide Level 26 Anion Gap 7 Blood Urea Nitrogen 7 Creatinine 0.74 Est Glomerular Filtrat > 60 Rate mL/min Glucose Level 152 Calcium Level 8.3 L Total Bilirubin 0.2 Direct Bilirubin 0.00 Indirect Bilirubin 0.2 Aspartate Amino 12 L Transf (AST/SGOT) Alanine 15 Aminotransferase (ALT/SG PT) Alkaline Phosphatase 113 C-Reactive Protein 5.5 H Total Protein 5.3 L Albumin 2.5 L Globulin 2.80 Albumin/Globulin Ratio 0.89 Test 08/23/18 12:29 Bedside Glucose 214 Subjective 24 Hr Interval Summary Free Text/Dictation no significant abdominal pain, no nausea or vomiting today Exam/Review of Systems Exam Vitals Vital Signs Date Temp Pulse Resp B/P (MAP) Pulse Ox O2 O2 Flow FiO2 Time Delivery Rate 08/23/18 98.8 86 18 143/68 96 08:00 (93) 08/22/18 Room Air 14:13 Intake and Output 08/22/18 08/22/18 08/23/18 1515:00 23:00 07:00 IntakeIntake Total 800 ml 1560 ml 1390 ml BalanceBalance 800 ml 1560 ml 1390 ml Constitutional: alert, oriented, well developed Psych: no complaints, nl mood/affect Head: normocephalic, atraumatic Eyes: nl conjunctiva, EOMI, nl lids ENMT: nl external ears & nose, nl lips & teeth, nl nasal mucosa & septum Neck: supple, non-tender Respiratory: clear to auscultation, normal air movement; No congested cough, No crackles/rales, No diminished breath sounds, No intercostal retraction, No labored breathing, No respirations, No tactile roberto mitus, No wheezing, No other Cardiovascular: regular rate and rhythm, nl pulses; No bruits, No diastolic murmur, No edema, No gallop, No irregular rhythm, No jugular venous distention (JVD), No murmurs/extra sounds, No rub, No systolic murmur, No S3, No S4, No other Gastrointestinal: soft, nl liver, spleen, tender (mild) Musculoskeletal: nl extremities to inspection Extremities: normal pulses; No calf tenderness, No cyanosis, No clubbing, No edema, No pitting pedal edema, No palpable cord, No tenderness, No other Neurological: MAINTENANCE ASSOCIATE II-XII intact, nl mental status, nl speech, nl strength Results Results 24hrs Laboratory Tests Test 08/22/18 17:34 08/22/18 20:57 08/23/18 05:17 08/23/18 07:45 Bedside Glucose 108 141 138 White Blood Count 5.4 Red Blood Count 4.14 L Hemoglobin 9.3 L Hematocrit 30.3 L Mean Corpuscular Volume 73.2 L Mean Corpuscular 22.5 L Hemoglobin Mean Corpuscular 30.7 L Hemoglobin Concent Red Cell Distribution 17.8 H Width Platelet Count 361 Mean Platelet Volume 9.4 Immature Granulocytes % 2.000 H Neutrophils % 87.4 H Segmented Neutrophils 82 H % (Manual) Band Neutrophils % 12 H (Manual) Lymphocytes % 8.0 L Lymphocytes % (Manual) 5 L Reactive Lymphocytes 1 H % (Manual) Monocytes % 2.4 Eosinophils % 0.0 Basophils % 0.2 Nucleated Red Blood 1 H Cells % Immature Granulocytes # 0.110 H Neutrophils # 4.7 Neutrophils # (Manual) 4.5 Band Neutrophils # 0.6 Lymphocytes (Manual) 0.2 L Lymphocytes # 0.4 L Reactive Lymphocytes # 0.0 Monocytes # 0.1 L Eosinophils # 0.0 Basophils # 0.0 Nucleated Red Blood 0.0 Cells # Platelet Estimate NORMAL Polychromasia 3+ Hypochromasia 1+ Poikilocytosis 2+ Anisocytosis 2+ Microcytosis 2+ Target Cells 1+ Ovalocytes 1+ Elliptocytes 1+ Erythrocyte 50.0 H Sedimentation Rate Sodium Level 137 Potassium Level 4.2 Chloride Level 104 Carbon Dioxide Level 26 Anion Gap 7 Blood Urea Nitrogen 7 Creatinine 0.74 Est Glomerular Filtrat > 60 Rate mL/min Glucose Level 152 Calcium Level 8.3 L Total Bilirubin 0.2 Direct Bilirubin 0.00 Indirect Bilirubin 0.2 Aspartate Amino 12 L Transf (AST/SGOT) Alanine 15 Aminotransferase (ALT/SG PT) Alkaline Phosphatase 113 C-Reactive Protein 5.5 H Total Protein 5.3 L Albumin 2.5 L Globulin 2.80 Albumin/Globulin Ratio 0.89 Test 08/23/18 12:29 Bedside Glucose 214 Medications Medication Current Medications Sodium Chloride 1,000 ml @ 80 mls/hr [id number] IV Last administered on 08/23/18at 06:03; Admin Dose 80 MLS/HR; Start 08/20/18 at 16:49 IV Flush (NS 3 ml) 3 ml PER PROTOCOL IV ; Start 08/20/18 at 17:00 Ondansetron HCl (Zofran Inj) 4 mg Q6H PRN IV NAUSEA/VOMITING; Start 08/20/18 at 17:00 Acetaminophen (Tylenol Tab) 650 mg Q6H PRN PO .PAIN 1-3 OR TEMP Last administered on 08/21/18 06:11; Admin Dose 650 MG; Start 08/20/18 at 17:00 Pantoprazole (Protonix Iv) 40 mg DAILY@06 IV Last administered on 08/23/18 06:04; Admin Dose 40 MG; Start 08/21/18 at 06:00 Amlodipine Besylate (Norvasc) 2.5 mg DAILY PO Last administered on 08/23/18 09:35; Admin Dose 2.5 MG; Start 08/21/18 at 09:00 Atorvastatin Calcium (Lipitor) 20 mg QHS PO Last administered on 08/22/18 20:48; Admin Dose 20 MG; Start 08/20/18 at 21:00 Gemfibrozil (Lopid) 600 mg BID PO Last administered on 08/23/18 09:34; Admin Dose 600 MG; Start 08/20/18 at 21:00 Isosorbide Mononitrate (Ismo) 20 mg DAILY PO Last administered on 08/23/18 09:35; Admin Dose 20 MG; Start 08/21/18 at 09:00 Metoprolol Succinate (Toprol Xl) 100 mg DAILY PO Last administered on 08/23/18 09:36; Admin Dose 100 MG; Start 08/21/18 at 09:00 Mesalamine (Delzicol Dr) 800 mg TID PO Last administered on 08/23/18 13:29; Admin Dose 800 MG; Start 08/21/18 at 09:00 Ciprofloxacin/ Dextrose 200 ml @ 200 mls/hr Q12 IVPB Last administered on 08/23/18 09:26; Admin Dose 200 MLS/HR; Start 08/20/18 at 21:00 Methylprednisolone Sodium Succinate (Solu-Medrol) 40 mg Q12H IV Last administered on 08/23/18 06:04; Admin Dose 40 MG; Start 08/20/18 at 18:30 Diagnostic Test (Pha) (Accu-Chek) 1 ea 02 XX Last administered on 08/21/18 02:13; Admin Dose 1 EA; Start 08/21/18 at 02:00 Insulin Aspart (Novolog Insulin Pen) NOVOLOG *MODERATE* ALGORITHM WITH MEALS BEDTIME SC Last administered on 08/23/18at 12:56; Admin Dose 4 UNIT; Start 08/20/18 at 18:00 Miscellaneous Information 1 ea NOTE XX ; Start 08/20/18 at 18:00 Glucose (Glutose) 15 gm Q15M PRN PO DECREASED GLUCOSE; Start 08/20/18 at 18:00 Glucose (Glutose) 22.5 gm Q15M PRN PO DECREASED GLUCOSE; Start 08/20/18 at 18:00 Dextrose (D50w Syringe) 25 ml Q15M PRN IV DECREASED GLUCOSE; Start 08/20/18 at 18:00 Dextrose (D50w Syringe) 50 ml Q15M PRN IV DECREASED GLUCOSE; Start 08/20/18 at 18:00 Glucagon (Glucagen) 1 mg Q15M PRN IM DECREASED GLUCOSE; Start 08/20/18 at 18:00 Glucose (Glutose) 15 gm Q15M PRN BUCCAL DECREASED GLUCOSE; Start 08/20/18 at 18:00 Acetaminophen/ Hydrocodone Bitart ([place] (5/325)) 1 tab Q4H PRN PO MODERATE PAIN LEVEL 4-6 Last administered on 08/21/18at 15:47; Admin Dose 1 TAB; Start 08/21/18 at 16:00 Hyoscyamine (Levsin (Sl)) 0.125 mg Q8 PRN SL DISTENSION/GAS/BLOATING Last administered on 08/21/18at 23:52; Admin Dose 0.125 MG; Start 08/21/18 at 20:00 Vancomycin HCl (Vanco Iv Per Pharmacy) VANCOMYCIN PER PHARMACY PER PROTOCOL XX ; Start 08/22/18 at 05:00 Vancomycin HCl 250 ml @ 125 mls/hr Q12H IVPB Last administered on 08/23/18at 10:58; Admin Dose 125 MLS/HR; Start 08/22/18 at 22:00 Diclofenac Sodium (Voltaren 0.1%) 1 drop Q6 RIGHT EYE Last administered on 08/23/18at 12:53; Admin Dose 1 DROP; Start 08/22/18 at 18:00 Patient Own Medication 1 ea Q12H LEFT EYE Last administered on 08/23/18at 12:51; Admin Dose 1 EA; Start 08/23/18 at 12:00 Prednisolone Acetate (Pred-Forte 1%) 1 drop Q6 RIGHT EYE Last administered on 08/23/18 12:53; Admin Dose 1 DROP; Start 08/22/18 at 18:00 Prednisolone Acetate (Pred-Forte 1%) 1 drop Q12H LEFT EYE Last administered on 08/23/18 12:53; Admin Dose 1 DROP; Start 08/23/18 at 12:00 Mesalamine (Rowasa) 4 gm AM [place] Last administered on 08/23/18at 09:36; Admin Dose 4 GM; Start 08/23/18 at 09:00 LUTHER HEBERT MD Aug 23, 2018 14:30
--- NOTE | 2018-08-23 15:47 | PN ---
Date/Time of Note Date/Time of Note DATE: 08/23/18 TIME: 15:43 Assessment/Plan VTE Prophylaxis Risk score (from Nsg)>0 risk: 3 SCD applied (from Nsg): Yes Pharmacological prophylaxis: other (scds) Lines/Catheters IV C[facility] Type [facility]from [facility] Peripheral IV Assessment/Plan Hospital Course Summary Assessment and Plan: Assessment: Bloody diarrhea- likely 2/2 to UC flare- resolved Left-sided ulcerative colitis Bacteremia- repeat cultures pending Plan: Continue current diet We will change Solu-Medrol to prednisone in a.m. Continue mesalamine after discharge until patient evaluated by GI as an out-pt- with plan to decrease prednisone by 5 mg every 5 days with discharge. Pt follow-up with GI after discharge may need change in mesalamine to biologic i.e Humira? As symptoms continue to persist and patient has required 2 different hospitalizations Encourage ambulation Continue Rowasa nightly times 4 weeks Patient seen in collaboration with Dr. Hendrickson Subjective: Course reviewed with nursing staff Patient interviewed and examined All labs, imaging and other results reviewed The patient feeling much better he denies lower abdominal pain Patient states he has had 2 bowel movements no evidence of blood Hemoglobin is stable. Attempted to call patient's son no answer I left a message to call the hospital back. Pending bx cx and once patient able to tolerate po steroids and po intake without difficult pt will be cleared from GI point of view PHYSICAL EXAMINATION: GENERAL: Alert & oriented x 3, in no acute distress SKIN: No lesions EYES: Pupils equal reactive to light, no discharge. EARS/NOSE AND THROAT: Ears normal, nose normal, oropharynx normal NECK: Supple, no masses, thyroid normal CHEST: Inspection within normal limits. CARDIOVASCULAR: Heart: Regular rate and rhythm, no murmurs, gallops or rubs. RESPIRATORY: Lungs clear to auscultation and percussion, no wheezing, no rubs GASTROINTESTINAL AND LIVER: Abdomen: Soft, LLQ tenderness- resolved, non- distended, no hernias, no masses, no organomegaly, no ascites, no guarding, no rebound tenderness, normoactive bowel sounds. Rectal: Deferred. EXTREMITIES: No cyanosis, clubbing or edema. Result Diagram: 08/23/18 0517 08/23/18 0517 Results 24hrs Laboratory Tests Test 08/22/18 17:34 08/22/18 20:57 08/23/18 05:17 08/23/18 07:45 Bedside Glucose 108 141 138 White Blood Count 5.4 Red Blood Count 4.14 L Hemoglobin 9.3 L Hematocrit 30.3 L Mean Corpuscular Volume 73.2 L Mean Corpuscular 22.5 L Hemoglobin Mean Corpuscular 30.7 L Hemoglobin Concent Red Cell Distribution 17.8 H Width Platelet Count 361 Mean Platelet Volume 9.4 Immature Granulocytes % 2.000 H Neutrophils % 87.4 H Segmented Neutrophils 82 H % (Manual) Band Neutrophils % 12 H (Manual) Lymphocytes % 8.0 L Lymphocytes % (Manual) 5 L Reactive Lymphocytes 1 H % (Manual) Monocytes % 2.4 Eosinophils % 0.0 Basophils % 0.2 Nucleated Red Blood 1 H Cells % Immature Granulocytes # 0.110 H Neutrophils # 4.7 Neutrophils # (Manual) 4.5 Band Neutrophils # 0.6 Lymphocytes (Manual) 0.2 L Lymphocytes # 0.4 L Reactive Lymphocytes # 0.0 Monocytes # 0.1 L Eosinophils # 0.0 Basophils # 0.0 Nucleated Red Blood 0.0 Cells # Platelet Estimate NORMAL Polychromasia 3+ Hypochromasia 1+ Poikilocytosis 2+ Anisocytosis 2+ Microcytosis 2+ Target Cells 1+ Ovalocytes 1+ Elliptocytes 1+ Erythrocyte 50.0 H Sedimentation Rate Sodium Level 137 Potassium Level 4.2 Chloride Level 104 Carbon Dioxide Level 26 Anion Gap 7 Blood Urea Nitrogen 7 Creatinine 0.74 Est Glomerular Filtrat > 60 Rate mL/min Glucose Level 152 Calcium Level 8.3 L Total Bilirubin 0.2 Direct Bilirubin 0.00 Indirect Bilirubin 0.2 Aspartate Amino 12 L Transf (AST/SGOT) Alanine 15 Aminotransferase (ALT/SG PT) Alkaline Phosphatase 113 C-Reactive Protein 5.5 H Total Protein 5.3 L Albumin 2.5 L Globulin 2.80 Albumin/Globulin Ratio 0.89 Test 08/23/18 12:29 Bedside Glucose 214 Exam/Review of Systems Exam Vitals Vital Signs Date Temp Pulse Resp B/P (MAP) Pulse Ox O2 O2 Flow FiO2 Time Delivery Rate 08/23/18 98.8 96 20 138/76 96 14:00 (96) 08/22/18 Room Air 14:13 Intake and Output 08/22/18 08/22/18 08/23/18 1515:00 23:00 07:00 IntakeIntake Total 800 ml 1560 ml 1390 ml BalanceBalance 800 ml 1560 ml 1390 ml Results Results 24hrs Laboratory Tests Test 08/22/18 17:34 08/22/18 20:57 08/23/18 05:17 08/23/18 07:45 Bedside Glucose 108 141 138 White Blood Count 5.4 Red Blood Count 4.14 L Hemoglobin 9.3 L Hematocrit 30.3 L Mean Corpuscular Volume 73.2 L Mean Corpuscular 22.5 L Hemoglobin Mean Corpuscular 30.7 L Hemoglobin Concent Red Cell Distribution 17.8 H Width Platelet Count 361 Mean Platelet Volume 9.4 Immature Granulocytes % 2.000 H Neutrophils % 87.4 H Segmented Neutrophils 82 H % (Manual) Band Neutrophils % 12 H (Manual) Lymphocytes % 8.0 L Lymphocytes % (Manual) 5 L Reactive Lymphocytes 1 H % (Manual) Monocytes % 2.4 Eosinophils % 0.0 Basophils % 0.2 Nucleated Red Blood 1 H Cells % Immature Granulocytes # 0.110 H Neutrophils # 4.7 Neutrophils # (Manual) 4.5 Band Neutrophils # 0.6 Lymphocytes (Manual) 0.2 L Lymphocytes # 0.4 L Reactive Lymphocytes # 0.0 Monocytes # 0.1 L Eosinophils # 0.0 Basophils # 0.0 Nucleated Red Blood 0.0 Cells # Platelet Estimate NORMAL Polychromasia 3+ Hypochromasia 1+ Poikilocytosis 2+ Anisocytosis 2+ Microcytosis 2+ Target Cells 1+ Ovalocytes 1+ Elliptocytes 1+ Erythrocyte 50.0 H Sedimentation Rate Sodium Level 137 Potassium Level 4.2 Chloride Level 104 Carbon Dioxide Level 26 Anion Gap 7 Blood Urea Nitrogen 7 Creatinine 0.74 Est Glomerular Filtrat > 60 Rate mL/min Glucose Level 152 Calcium Level 8.3 L Total Bilirubin 0.2 Direct Bilirubin 0.00 Indirect Bilirubin 0.2 Aspartate Amino 12 L Transf (AST/SGOT) Alanine 15 Aminotransferase (ALT/SG PT) Alkaline Phosphatase 113 C-Reactive Protein 5.5 H Total Protein 5.3 L Albumin 2.5 L Globulin 2.80 Albumin/Globulin Ratio 0.89 Test 08/23/18 12:29 Bedside Glucose 214 Medications Medication Current Medications Sodium Chloride 1,000 ml @ 80 mls/hr [id number] IV Last administered on 08/23/18at 06:03; Admin Dose 80 MLS/HR; Start 08/20/18 at 16:49 IV Flush (NS 3 ml) 3 ml PER PROTOCOL IV ; Start 08/20/18 at 17:00 Ondansetron HCl (Zofran Inj) 4 mg Q6H PRN IV NAUSEA/VOMITING; Start 08/20/18 at 17:00 Acetaminophen (Tylenol Tab) 650 mg Q6H PRN PO .PAIN 1-3 OR TEMP Last administered on 08/21/18 06:11; Admin Dose 650 MG; Start 08/20/18 at 17:00 Pantoprazole (Protonix Iv) 40 mg DAILY@06 IV Last administered on 08/23/18 06:04; Admin Dose 40 MG; Start 08/21/18 at 06:00 Amlodipine Besylate (Norvasc) 2.5 mg DAILY PO Last administered on 08/23/18 09:35; Admin Dose 2.5 MG; Start 08/21/18 at 09:00 Atorvastatin Calcium (Lipitor) 20 mg QHS PO Last administered on 08/22/18 20:48; Admin Dose 20 MG; Start 08/20/18 at 21:00 Gemfibrozil (Lopid) 600 mg BID PO Last administered on 08/23/18 09:34; Admin Dose 600 MG; Start 08/20/18 at 21:00 Isosorbide Mononitrate (Ismo) 20 mg DAILY PO Last administered on 08/23/18 09:35; Admin Dose 20 MG; Start 08/21/18 at 09:00 Metoprolol Succinate (Toprol Xl) 100 mg DAILY PO Last administered on 08/23/18 09:36; Admin Dose 100 MG; Start 08/21/18 at 09:00 Mesalamine (Delzicol Dr) 800 mg TID PO Last administered on 08/23/18 13:29; Admin Dose 800 MG; Start 08/21/18 at 09:00 Ciprofloxacin/ Dextrose 200 ml @ 200 mls/hr Q12 IVPB Last administered on 08/23/18 09:26; Admin Dose 200 MLS/HR; Start 08/20/18 at 21:00 Methylprednisolone Sodium Succinate (Solu-Medrol) 40 mg Q12H IV Last administered on 08/23/18 06:04; Admin Dose 40 MG; Start 08/20/18 at 18:30 Diagnostic Test (Pha) (Accu-Chek) 1 ea 02 XX Last administered on 08/21/18 02:13; Admin Dose 1 EA; Start 08/21/18 at 02:00 Insulin Aspart (Novolog Insulin Pen) NOVOLOG *MODERATE* ALGORITHM WITH MEALS BEDTIME SC Last administered on 08/23/18 12:56; Admin Dose 4 UNIT; Start 08/20/18 at 18:00 Miscellaneous Information 1 ea NOTE XX ; Start 08/20/18 at 18:00 Glucose (Glutose) 15 gm Q15M PRN PO DECREASED GLUCOSE; Start 08/20/18 at 18:00 Glucose (Glutose) 22.5 gm Q15M PRN PO DECREASED GLUCOSE; Start 08/20/18 at 18:00 Dextrose (D50w Syringe) 25 ml Q15M PRN IV DECREASED GLUCOSE; Start 08/20/18 at 18:00 Dextrose (D50w Syringe) 50 ml Q15M PRN IV DECREASED GLUCOSE; Start 08/20/18 at 18:00 Glucagon (Glucagen) 1 mg Q15M PRN IM DECREASED GLUCOSE; Start 08/20/18 at 18:00 Glucose (Glutose) 15 gm Q15M PRN BUCCAL DECREASED GLUCOSE; Start 08/20/18 at 18:00 Acetaminophen/ Hydrocodone Bitart ([place] (5/325)) 1 tab Q4H PRN PO MODERATE PAIN LEVEL 4-6 Last administered on 08/21/18 15:47; Admin Dose 1 TAB; Start 08/21/18 at 16:00 Hyoscyamine (Levsin (Sl)) 0.125 mg Q8 PRN SL DISTENSION/GAS/BLOATING Last administered on 08/21/18 23:52; Admin Dose 0.125 MG; Start 08/21/18 at 20:00 Diclofenac Sodium (Voltaren 0.1%) 1 drop Q6 RIGHT EYE Last administered on 08/23/18 12:53; Admin Dose 1 DROP; Start 08/22/18 at 18:00 Patient Own Medication 1 ea Q12H LEFT EYE Last administered on 08/23/18 12:51; Admin Dose 1 EA; Start 08/23/18 at 12:00 Prednisolone Acetate (Pred-Forte 1%) 1 drop Q6 RIGHT EYE Last administered on 08/23/18 12:53; Admin Dose 1 DROP; Start 08/22/18 at 18:00 Prednisolone Acetate (Pred-Forte 1%) 1 drop Q12H LEFT EYE Last administered on 08/23/18 12:53; Admin Dose 1 DROP; Start 08/23/18 at 12:00 Mesalamine (Rowasa) 4 gm AM [place] Last administered on 08/23/18at 09:36; Admin Dose 4 GM; Start 08/23/18 at 09:00 DAREN MCKNIGHT Aug 23, 2018 15:47
[2018-08-23 20:00] VITALS: BP 106/55; PULSE 59; RESP 19
[2018-08-23] MEDS: ATORVASTATIN 20 MG TAB PO SCH (20:53)
[2018-08-24] MEDS: PREDNISOLONE ACET 1% 5 ML OPH RIGHT EYE SCH ×4 (00:04→17:28)
[2018-08-24] MEDS: DICLOFENAC 0.1% 2.5 ML OPH RIGHT EYE SCH ×4 (00:04→17:29)
[2018-08-24] MEDS: PREDNISOLONE ACET 1% 5 ML OPH LEFT EYE SCH ×2 (00:04→12:20)
[2018-08-24 02:00] VITALS: BP 117/58; PULSE 61; RESP 19
[2018-08-24] MEDS: ACCU-CHEK XX SCH (02:00)
[2018-08-24] MEDS: METHYLPREDNISOLONE 40 MG INJ IV SCH (06:06)
[2018-08-24] MEDS: PANTOPRAZOLE 40 MG INJ IV SCH (06:06)
[2018-08-24 08:00] VITALS: BP 126/65; PULSE 85; RESP 18
[2018-08-24] MEDS: SOD CHLORIDE 0.9% 1,000 ML IV SCH ×2 (08:13→10:06)
[2018-08-24] MEDS ORDERED: predniSONE 10 MG TAB PO SCH (09:00)
[2018-08-24] MEDS ORDERED: NEPAFENAC 0.3% LEFT EYE SCH (09:00)
[2018-08-24] MEDS ORDERED: PATIENT'S OWN MEDICATION LEFT EYE SCH (09:00)
[2018-08-24] MEDS: INSULIN ASPART [NOVOLOG] 3 ML PEN SC SCH ×3 (09:07→17:29)
[2018-08-24] MEDS: CIPROFLOXACIN 400MG/D5W 200 ML IVPB SCH (10:00)
[2018-08-24] MEDS: METOPROLOL (XL) 100 MG TAB PO SCH (10:01)
[2018-08-24] MEDS: ISOSORBIDE MONONITRATE 20 MG TAB PO SCH (10:01)
[2018-08-24] MEDS: MESALAMINE (EC) 400 MG CAP PO SCH ×2 (10:01→12:21)
[2018-08-24] MEDS: AMLODIPINE 2.5 MG TAB PO SCH (10:01)
--- NOTE | 2018-08-24 11:32 | PN ---
Date/Time of Note Date/Time of Note DATE: 08/24/18 TIME: 11:27 Assessment/Plan VTE Prophylaxis Risk score (from Nsg)>0 risk: 3 SCD applied (from Nsg): Yes Pharmacological prophylaxis: other (scds) Lines/Catheters IV Catheter Type (from [facility]): Peripheral IV Assessment/Plan Hospital Course Summary Assessment and Plan: Assessment: Bloody diarrhea- likely 2/2 to UC flare- resolved Left-sided ulcerative colitis Bacteremia- repeat cultures pending DM Plan: Change to carb controlled diet Continue mesalamine after discharge until patient evaluated by GI as an out-pt- with plan to decrease prednisone by 5 mg every 5 days with discharge. Pt follow-up with GI after discharge may need change in mesalamine to biologic i.e Humira? As symptoms continue to persist and patient has required 2 different hospitalizations Encourage ambulation Continue Rowasa nightly times 4 weeks Will continue to monitor labs while hospitalized D/c planning per hospitalist- Pt appears stable for out-pt management from GI point of view. when repeat blood cx return Patient seen in collaboration with Dr. Hendrickson Subjective: Course reviewed with nursing staff Patient interviewed and examined All labs, imaging and other results reviewed Pt denies lower abd pain or rectal bleeding, BM down to x1 today. Slight decrease in Hgb today. Pt c/o too much sugar in breakfast - will change to carb controlled diet Spoke with patient son regarding status. I ambulated with patient in the hill tolerated fairly, encourage ambulation with assist as needed PHYSICAL EXAMINATION: GENERAL: Alert & oriented x 3, in no acute distress SKIN: No lesions EYES: Pupils equal reactive to light, no discharge. EARS/NOSE AND THROAT: Ears normal, nose normal, oropharynx normal NECK: Supple, no masses, thyroid normal CHEST: Inspection within normal limits. CARDIOVASCULAR: Heart: Regular rate and rhythm, no murmurs, gallops or rubs. RESPIRATORY: Lungs clear to auscultation and percussion, no wheezing, no rubs GASTROINTESTINAL AND LIVER: Abdomen: Soft, LLQ tenderness- resolved, non- distended, no hernias, no masses, no organomegaly, no ascites, no guarding, no rebound tenderness, normoactive bowel sounds. Rectal: Deferred. EXTREMITIES: No cyanosis, clubbing or edema. Result Diagram: 08/24/18 0632 08/24/18 0632 Results 24hrs Laboratory Tests Test 08/23/18 12:29 08/23/18 17:41 08/23/18 20:39 08/24/18 02:11 Bedside Glucose 214 174 213 182 Test 08/24/18 06:32 08/24/18 08:08 White Blood Count 7.2 # Red Blood Count 3.96 L Hemoglobin 8.8 L Hematocrit 29.1 L Mean Corpuscular 73.5 L Volume Mean Corpuscular 22.2 L Hemoglobin Mean Corpuscular 30.2 L Hemoglobin Concent Red Cell Distribution 17.9 H Width Platelet Count 392 Mean Platelet Volume 9.2 Immature Granulocytes 3.300 H % Neutrophils % 81.8 H Lymphocytes % 10.2 L Monocytes % 4.6 Eosinophils % 0.0 Basophils % 0.1 Nucleated Red Blood 0.0 Cells % Immature Granulocytes 0.240 H # Neutrophils # 5.9 Lymphocytes # 0.7 L Monocytes # 0.3 Eosinophils # 0.0 Basophils # 0.0 Nucleated Red Blood 0.0 Cells # Sodium Level 137 Potassium Level 4.0 Chloride Level 107 Carbon Dioxide Level 26 Anion Gap 4 L Blood Urea Nitrogen 10 Creatinine 0.74 Est Glomerular > 60 Filtrat Rate mL/min Glucose Level 145 Calcium Level 8.1 L Bedside Glucose 170 Exam/Review of Systems Exam Vitals Vital Signs Date Temp Pulse Resp B/P (MAP) Pulse Ox O2 O2 Flow FiO2 Time Delivery Rate 08/24/18 98.6 85 18 126/65 96 08:00 (85) 08/22/18 Room Air 14:13 Intake and Output 08/23/18 08/23/18 08/24/18 1515:00 23:00 07:00 IntakeIntake Total 800 ml 1650 ml BalanceBalance 800 ml 1650 ml Results Results 24hrs Laboratory Tests Test 08/23/18 12:29 08/23/18 17:41 08/23/18 20:39 08/24/18 02:11 Bedside Glucose 214 174 213 182 Test 08/24/18 06:32 08/24/18 08:08 White Blood Count 7.2 # Red Blood Count 3.96 L Hemoglobin 8.8 L Hematocrit 29.1 L Mean Corpuscular 73.5 L Volume Mean Corpuscular 22.2 L Hemoglobin Mean Corpuscular 30.2 L Hemoglobin Concent Red Cell Distribution 17.9 H Width Platelet Count 392 Mean Platelet Volume 9.2 Immature Granulocytes 3.300 H % Neutrophils % 81.8 H Lymphocytes % 10.2 L Monocytes % 4.6 Eosinophils % 0.0 Basophils % 0.1 Nucleated Red Blood 0.0 Cells % Immature Granulocytes 0.240 H # Neutrophils # 5.9 Lymphocytes # 0.7 L Monocytes # 0.3 Eosinophils # 0.0 Basophils # 0.0 Nucleated Red Blood 0.0 Cells # Sodium Level 137 Potassium Level 4.0 Chloride Level 107 Carbon Dioxide Level 26 Anion Gap 4 L Blood Urea Nitrogen 10 Creatinine 0.74 Est Glomerular > 60 Filtrat Rate mL/min Glucose Level 145 Calcium Level 8.1 L Bedside Glucose 170 Medications Medication Current Medications Sodium Chloride 1,000 ml @ 80 mls/hr [id number] IV Last administered on 08/24/18 10:06; Admin Dose 80 MLS/HR; Start 08/20/18 at 16:49 IV Flush (NS 3 ml) 3 ml PER PROTOCOL IV ; Start 08/20/18 at 17:00 Ondansetron HCl (Zofran Inj) 4 mg Q6H PRN IV NAUSEA/VOMITING; Start 08/20/18 at 17:00 Acetaminophen (Tylenol Tab) 650 mg Q6H PRN PO .PAIN 1-3 OR TEMP Last administered on 08/21/18 06:11; Admin Dose 650 MG; Start 08/20/18 at 17:00 Pantoprazole (Protonix Iv) 40 mg DAILY@06 IV Last administered on 08/24/18 06:06; Admin Dose 40 MG; Start 08/21/18 at 06:00 Amlodipine Besylate (Norvasc) 2.5 mg DAILY PO Last administered on 08/24/18 10:01; Admin Dose 2.5 MG; Start 08/21/18 at 09:00 Atorvastatin Calcium (Lipitor) 20 mg QHS PO Last administered on 08/23/18 20:53; Admin Dose 20 MG; Start 08/20/18 at 21:00 Isosorbide Mononitrate (Ismo) 20 mg DAILY PO Last administered on 08/24/18 10:01; Admin Dose 20 MG; Start 08/21/18 at 09:00 Metoprolol Succinate (Toprol Xl) 100 mg DAILY PO Last administered on 08/24/18 10:01; Admin Dose 100 MG; Start 08/21/18 at 09:00 Mesalamine (Delzicol Dr) 800 mg TID PO Last administered on 08/24/18 10:01; Admin Dose 800 MG; Start 08/21/18 at 09:00 Ciprofloxacin/ Dextrose 200 ml @ 200 mls/hr Q12 IVPB Last administered on 08/24/18 10:00; Admin Dose 200 MLS/HR; Start 08/20/18 at 21:00 Diagnostic Test (Pha) (Accu-Chek) 1 ea 02 XX Last administered on 08/21/18at 02:13; Admin Dose 1 EA; Start 08/21/18 at 02:00 Insulin Aspart (Novolog Insulin Pen) NOVOLOG *MODERATE* ALGORITHM WITH MEALS BEDTIME SC Last administered on 08/24/18 09:07; Admin Dose 2 UNIT; Start 08/20/18 at 18:00 Miscellaneous Information 1 ea NOTE XX ; Start 08/20/18 at 18:00 Glucose (Glutose) 15 gm Q15M PRN PO DECREASED GLUCOSE; Start 08/20/18 at 18:00 Glucose (Glutose) 22.5 gm Q15M PRN PO DECREASED GLUCOSE; Start 08/20/18 at 18:00 Dextrose (D50w Syringe) 25 ml Q15M PRN IV DECREASED GLUCOSE; Start 08/20/18 at 18:00 Dextrose (D50w Syringe) 50 ml Q15M PRN IV DECREASED GLUCOSE; Start 08/20/18 at 18:00 Glucagon (Glucagen) 1 mg Q15M PRN IM DECREASED GLUCOSE; Start 08/20/18 at 18:00 Glucose (Glutose) 15 gm Q15M PRN BUCCAL DECREASED GLUCOSE; Start 08/20/18 at 18:00 Acetaminophen/ Hydrocodone Bitart ([place] (5/325)) 1 tab Q4H PRN PO MODERATE PAIN LEVEL 4-6 Last administered on 08/21/18at 15:47; Admin Dose 1 TAB; Start 08/21/18 at 16:00 Hyoscyamine (Levsin (Sl)) 0.125 mg Q8 PRN SL DISTENSION/GAS/BLOATING Last administered on 08/21/18 23:52; Admin Dose 0.125 MG; Start 08/21/18 at 20:00 Diclofenac Sodium (Voltaren 0.1%) 1 drop Q6 RIGHT EYE Last administered on 08/24/18 06:06; Admin Dose 1 DROP; Start 08/22/18 at 18:00 Prednisolone Acetate (Pred-Forte 1%) 1 drop Q6 RIGHT EYE Last administered on 08/24/18 06:06; Admin Dose 1 DROP; Start 08/22/18 at 18:00 Prednisolone Acetate (Pred-Forte 1%) 1 drop Q12H LEFT EYE Last administered on 08/24/18 00:04; Admin Dose 1 DROP; Start 08/23/18 at 12:00 Mesalamine (Rowasa) 4 gm AM SC Last administered on 08/23/18 09:36; Admin Dose 4 GM; Start 08/23/18 at 09:00 Prednisone (Prednisone) 30 mg BID PO Last administered on 08/24/18 10:00; Admin Dose 30 MG; Start 08/24/18 at 09:00 Patient Own Medication 1 ea DAILY LEFT EYE Last administered on 08/24/18 10:02; Admin Dose 1 EA; Start 08/24/18 at 09:00 DAREN MCKNIGHT Aug 24, 2018 11:32
[2018-08-24] MEDS: MESALAMINE 4 GM/60 ML ENEMA PR SCH (11:56)
[2018-08-24] MEDS ORDERED: ASA400 PO (13:40)
[2018-08-24] MEDS ORDERED: CIPR500T4 PO (13:40)
[2018-08-24] MEDS ORDERED: PRED10TA PO (13:40)
[2018-08-24] MEDS ORDERED: [UNRECOGNIZED DRUG - CODE] PR (13:40)
--- NOTE | 2018-08-24 13:49 | DS ---
Date/Time of Note Date/Time of Note DATE: 08/24/18 TIME: 13:42 Discharge Summary Admission/Discharge Info Admit Date/Time Aug 20, 2018 at 16:26 Discharge Date/Time Discharge Diagnosis 1. Ulcerative colitis, flare, improving, follow up with GI in one week 2. COAGULASE NEGATIVE STAPH bacteremia, cipro for total of two weeks 3. HTN, controlled 4. Dyslipidemia, on lipitor and lopid Patient Condition: Stable Hospital Course This is a 63-year-old male who is well-known to GI services. He was evaluated in March 2018, underwent EGD and colonoscopy found to have left-sided ulcerative colitis and was initially started on prednisone and mesalamine. With outpatient management prednisone was changed to budesonide and the mesalamine was changed to a different type of mesalamine. Patient did not tolerate and symptoms became worse when he then presented to the ED was evaluated for short period of time and subsequently discharged. However symptoms progressed, he developed bloody diarrhea along with chills and generalized fatigue. Patient return to ED for further evaluation. Workup he was noted to have left-sided colitis infectious versus inflammatory given history patient was started on mesalamine and co rticosteroid via IV. Additionally C. difficile was checked and is negative Patient is treated with iv soluMedrol, oral and rectal mesalamine, symptoms improved. He has no diarrhea, no abdominal pain, he tolerates diet. He will be discharged with oral and rectal mesalamine along with tapering dosage of prednisone. Patient will follow up with Dr. Hendrickson for further treatment outpa tient. blood cultures are positive with COAGULASE NEGATIVE STAPh and it is sensitive to cipro. He will be on total of 14 days of cipro. Repeated blood culture is negative so far. Home Meds Active Scripts Ciprofloxacin Hcl* (Ciprofloxacin Hcl*) 500 Mg Tablet, 500 MG PO BID for 10 Days, #14 TAB Prov:LUTHER HEBERT MD 08/24/18 Prednisone* (Prednisone*) 10 Mg Tab, 30 MG PO BID for 5 Days, TAB prednisone 30 mg po bid for 5 days, then 30 mg po qam, 25 mg po qpm for 5 days, then 25 mg po bid for 5 days, then 25 mg po qam, 20 mg po qpm for 5 days, then 20 mg po bid for 5 days, then 35 mg po daily for 5 days, then 30 mg po daily for 5 days then adjust di=[place] per GI Prov:LUTHER HEBERT MD 08/24/18 Mesalamine* (Rowasa Enema*) 4 Gm/60 Ml Soln, 4 GM NH AM for 30 Days Prov:LUTHER HEBERT MD 08/24/18 Mesalamine (Delzicol) 400 Mg Cap.drtab., 800 MG PO TID for 30 Days Prov:LUTHER HEBERT MD 08/24/18 Reported Medications Hyoscyamine Sulfate* (Hyoscyamine Sulfate*) 0.125 Mg Tab.subl, 0.125 MG SL Q8 PRN for DISTENSION/GAS/BLOATING, TAB 08/21/18 Nepafenac (ILEVRO) 1.7 Ml Drops.susp, 1 DROP OP Q12 for Left eye 08/20/18 Diclofenac Sodium* (Diclofenac Oph*) 2.5 Ml Drops, 1 DROP RIGHT EYE BID, #1 EA 08/20/18 Prednisolone Acetate* (Pred Forte*) 5 Ml Susp, 1 DROP RIGHT EYE BID, EA 08/20/18 Aspirin (Low Dose Aspirin) 81 Mg Tablet.dr, 81 MG PO DAILY, #30 TAB 12/29/17 Gemfibrozil* (Gemfibrozil*) 600 Mg Tablet, 600 MG PO BID, TAB 12/29/17 Amlodipine Besylate* (Amlodipine Besylate*) 2.5 Mg Tablet, 2.5 MG PO DAILY, #30 TAB 12/29/17 Atorvastatin Calcium* (Atorvastatin Calcium*) 20 Mg Tablet, 20 MG PO QHS, #30 TAB 12/29/17 Metoprolol Succinate* (Toprol XL*) 100 Mg Tab.sr.24h, 100 MG PO DAILY, #30 TAB 12/29/17 Isosorbide Mononitrate* (Isosorbide Mononitrate*) 20 Mg Tablet, 20 MG PO DAILY, TAB 12/29/17 Pantoprazole* (Protonix*) 40 Mg Tablet.dr, 40 MG PO DAILY, TAB 12/29/17 Insulin Glargine,Hum.rec.anlog (Calixto Carlosostjazzy) 300 Unit/1 Ml Insuln.pen, 24 UNIT SQ QHS, EA 12/29/17 Discontinued Reported Medications Ramipril (Ramipril) 1.25 Mg Capsule, 1.25 MG PO DAILY, CAP 08/20/18 Metoclopramide HCl (Metoclopramide HCl) 10 Gm Powder, 10 GM MC 03/21/18 Mesalamine* (Asacol HD) 800 Mg Tablet.dr, 1800 MG PO TID, TAB 03/21/18 Discontinued Scripts Prednisone* (Prednisone*) 20 Mg Tab, 40 MG PO DAILY for 5 Days, TAB Prov:MIMA PATHAK MD 08/05/18 Follow-up Plan PCP and Dr. Hendrickson in one week Primary Care Provider Win Senior Pending Labs Laboratory Tests Test 08/23/18 17:41 08/23/18 20:39 08/24/18 02:11 08/24/18 06:32 Bedside 174 213 182 Glucose mg/dL (70-220) mg/dL (70-220) mg/dL (70-220) White Blood 7.2 Count 10^3/ul (4.8-1 0.8) Red Blood 3.96 Count 10^6/ul (4.70- 6.10) Hemoglobin 8.8 g/dl (14.0-18. 0) Hematocrit 29.1 % (42.0-52.0) Mean 73.5 Corpuscular fl (82.0-101.0 Volume ) Mean 22.2 Corpuscular pg (29.0-33.0) Hemoglobin Mean 30.2 Corpuscular g/dl (32.0-37. Hemoglobin Conc 0) ent Red Cell 17.9 Distribution % (11.5-14.5) Width Platelet Count 392 10^3/UL (140-4 15) Mean Platelet 9.2 Volume fl (7.4-10.4) Immature 3.300 Granulocytes % % (0.001-0.429 ) Neutrophils % 81.8 % (39.0-77.0) Lymphocytes % 10.2 % (15.0-51.0) Monocytes % 4.6 % (0.0-11.0) Eosinophils % 0.0 % (0.0-7.0) Basophils % 0.1 % (0.0-2.0) Nucleated Red 0.0 Blood Cells % /100WBC (0.0-0 .0) Immature 0.240 Granulocytes # 10^3/ul (0.0-0 .031) Neutrophils # 5.9 10^3/ul (1.6-7 .5) Lymphocytes # 0.7 10^3/ul (0.8-2 .9) Monocytes # 0.3 10^3/ul (0.3-0 .9) Eosinophils # 0.0 10^3/ul (0.0-0 .5) Basophils # 0.0 10^3/ul (0.0-0 .1) Nucleated Red 0.0 Blood Cells # 10^3/ul (0.0-0 .0) Sodium Level 137 mmol/L (135-14 4) Potassium 4.0 Level mmol/L (3.5-5. 1) Chloride Level 107 mmol/L (97-110 ) Carbon Dioxide 26 Level mmol/L (21-31) Anion Gap 4 (5-13) Blood Urea 10 Nitrogen mg/dl (7-20) Creatinine 0.74 mg/dl (0.61-1. 24) Est Glomerular > 60 Filtrat mL/min (>60) Rate mL/min Glucose Level 145 mg/dl (70-220) Calcium Level 8.1 mg/dl (8.4-10. 2) Test 08/24/18 08:08 08/24/18 12:19 Bedside 170 203 Glucose mg/dL (70-220) mg/dL (70-220) LUTHER HEBERT MD Aug 24, 2018 13:49
[2018-08-24 14:00] VITALS: BP 114/57; PULSE 59; RESP 18
[2018-08-24 20:17] VITALS: BP 134/64; PULSE 63; RESP 18
== END 2018-08-24 20:30 | disposition home health service (06) | DRG 386 ==
LOC: E/R 13:39 → PP2 16:26
PROVIDERS: ADMIT Internal Medicine; ATTEND Internal Medicine
DX: K51.511 Left sided colitis with rectal bleeding (principal); R78.81 Bacteremia; D64.9 Anemia, unspecified; E11.8 Type 2 diabetes mellitus with unspecified complications; I25.10 Atherosclerotic heart disease of native coronary artery without angina pectoris; I10 Essential (primary) hypertension; Z72.0 Tobacco use
CPT/HCPCS: 36415; 74177; 80048; 80053; 80061; 82962; 83036; 83690; 83735; 84100; 84443; 85025; 85651; 86140; 87075; 96374; 96375; C9113; J0744; J1170; J1335; J1815; J2405; J2920; J2930; J3370; J7030; J7050; J7512; Q9967

== ENCOUNTER 2018-09-11 06:03 | Emergency (ER) | payer BC ==
[~2018-09-11] VITALS: Ht 165.1 cm; Wt 63.5 kg
[~2018-09-11 06:03] MED LIST changes: +ASA400 PO; +CIPR500T4 PO; +DICL2.5D11 RIGHT EYE; +HYOS0.1297 SL; -MESA800T2 PO; -METO10PO MC; +NEPA1.7D OP; +PRED10TA PO; -PRED20TA PO; +PRED5DRO20 RIGHT EYE; +[UNRECOGNIZED DRUG - CODE] PR
[2018-09-11 06:19] VITALS: Ht 165.1 cm; Wt 63.5 kg
--- NOTE | 2018-09-11 07:17 | ERD ---
ER Documentation Chief Complaint Chief Complaint precordial pain, non-radiating,just got started on Z-pack xST;hx CABG,HypoK HPI 63-year-old man complains of epigastric abdominal discomfort and sore throat he also complains of "chest pain" and states the pain is sharp, nonradiating and nonexertional. He states he feels something in his throat and that his throat feels dry. He has had no fevers or chills, no exertional chest discomfort, no shortness of breath, no blood per rectum or melena, no headache or blurry vision. Patient had an angiogram about 1 year ago that was negative for coronary artery stenosis as explained to his son who was at the bedside assisting with history. Patient had CABG many years ago. ROS All systems reviewed and are negative except as per history of present illness. Medications Home Meds Active Scripts Mag Hydrox/Al Hydrox/Simeth (Maalox Advanced Suspension) 355 Ml Oral.susp, 2 TSP PO TID PRN for PAIN, #20 OZ Prov:NAVNEET GORDON MD 09/11/18 Nystatin (Nystatin) 100,000 Unit/1 Ml Oral.susp, 2.5 ML PO BID for 7 Days, #60 ML Prov:NAVNEET GORDON MD 09/11/18 Ciprofloxacin Hcl* (Ciprofloxacin Hcl*) 500 Mg Tablet, 500 MG PO BID for 10 Days, #14 TAB Prov:LUTHER HEBERT MD 08/24/18 Prednisone* (Prednisone*) 10 Mg Tab, 30 MG PO BID for 5 Days, TAB prednisone 30 mg po bid for 5 days, then 30 mg po qam, 25 mg po qpm for 5 days, then 25 mg po bid for 5 days, then 25 mg po qam, 20 mg po qpm for 5 days, then 20 mg po bid for 5 days, then 35 mg po daily for 5 days, then 30 mg po daily for 5 days then adjust di=[place] per GI Prov:LUTHER HEBERT MD 08/24/18 Mesalamine* (Rowasa Enema*) 4 Gm/60 Ml Soln, 4 GM [place] AM for 30 Days Prov:LUTHER HEBERT MD 08/24/18 Mesalamine (Delzicol) 400 Mg Cap.drtab., 800 MG PO TID for 30 Days Prov:LUTHER HEBERT MD 08/24/18 Reported Medications Hyoscyamine Sulfate* (Hyoscyamine Sulfate*) 0.125 Mg Tab.subl, 0.125 MG SL Q8 PRN for DISTENSION/GAS/BLOATING, TAB 08/21/18 Nepafenac (ILEVRO) 1.7 Ml Drops.susp, 1 DROP OP Q12 for Left eye 08/20/18 Diclofenac Sodium* (Diclofenac Oph*) 2.5 Ml Drops, 1 DROP RIGHT EYE BID, #1 EA 08/20/18 Prednisolone Acetate* (Pred Forte*) 5 Ml Susp, 1 DROP RIGHT EYE BID, EA 08/20/18 Aspirin (Low Dose Aspirin) 81 Mg Tablet.dr, 81 MG PO DAILY, #30 TAB 12/29/17 Gemfibrozil* (Gemfibrozil*) 600 Mg Tablet, 600 MG PO BID, TAB 12/29/17 Amlodipine Besylate* (Amlodipine Besylate*) 2.5 Mg Tablet, 2.5 MG PO DAILY, #30 TAB 12/29/17 Atorvastatin Calcium* (Atorvastatin Calcium*) 20 Mg Tablet, 20 MG PO QHS, #30 TAB 12/29/17 Metoprolol Succinate* (Toprol XL*) 100 Mg Tab.sr.24h, 100 MG PO DAILY, #30 TAB 12/29/17 Isosorbide Mononitrate* (Isosorbide Mononitrate*) 20 Mg Tablet, 20 MG PO DAILY, TAB 12/29/17 Pantoprazole* (Protonix*) 40 Mg Tablet.dr, 40 MG PO DAILY, TAB 12/29/17 Insulin Glargine,Hum.rec.anlog (Calixto Pineda) 300 Unit/1 Ml Insuln.pen, 24 UNIT SQ QHS, EA 12/29/17 Allergies Allergies: Coded Allergies: No Known Allergy (Unverified , 08/04/18) PMhx/Soc Recent history of ulcerative colitis, hypertension, dyslipidemia, patient recently completed a course of ciprofloxacin History of Surgery: Yes (bypass 16 years ago,gallstone removal) Anesthesia Reaction: No Hx Neurological Disorder: No Hx Respiratory Disorders: No Hx Cardiac Disorders: Yes (hx bypass surgery) Hx Psychiatric Problems: No Hx Miscellaneous Medical Probl: Yes ([facility] May 2018 for ulc. colitis flare) Hx Alcohol Use: Yes (occasionally during younger years) Hx Substance Use: No Hx Tobacco Use: No Smoking Status: Former smoker FmHx Family History: No diabetes Physical Exam Vitals Vital Signs Date Temp Pulse Resp B/P (MAP) Pulse Ox O2 O2 Flow FiO2 Time Delivery Rate 09/11/18 77 18 117/67 100 Room Air 09:56 (84) 09/11/18 97.7 81 18 129/72 99 06:19 (91) Physical Exam Const: No acute distress, appears dehydrated, afebrile HEENT: Dry mucous membranes, no cervical spine deformity, no pharyngeal erythema or exudates, uvula is midline. Patient has a white aphthous ulceration to the left lateral tongue which he states is painful. Resp: Clear to auscultation bilaterally Cardio: Regular rate and rhythm, no murmurs Abd: Soft, non tender, non distended. Normal bowel sounds Skin: No petechiae or rashes Back: No midline or flank tenderness Ext: No cyanosis, or edema Neur: Awake and alert x3, no focal deficits or facial asymmetry, pupils equal round reactive to light Psych: Normal Mood and Affect Result Diagram: 09/11/18 0810 09/11/18 0810 Results 24 hrs Laboratory Tests Test 09/11/18 08:10 White Blood Count 4.1 10^3/ul Red Blood Count 4.87 10^6/ul Hemoglobin 11.2 g/dl Hematocrit 36.2 % Mean Corpuscular Volume 74.3 fl Mean Corpuscular Hemoglobin 23.0 pg Mean Corpuscular Hemoglobin Concent 30.9 g/dl Red Cell Distribution Width 19.7 % Platelet Count 203 10^3/UL Mean Platelet Volume 10.0 fl Immature Granulocytes % 0.500 % Neutrophils % 80.1 % Lymphocytes % 13.8 % Monocytes % 5.2 % Eosinophils % 0.2 % Basophils % 0.2 % Nucleated Red Blood Cells % 0.0 /100WBC Immature Granulocytes # 0.020 10^3/ul Neutrophils # 3.3 10^3/ul Lymphocytes # 0.6 10^3/ul Monocytes # 0.2 10^3/ul Eosinophils # 0.0 10^3/ul Basophils # 0.0 10^3/ul Nucleated Red Blood Cells # 0.0 10^3/ul Prothrombin Time 11.8 Sec Prothrombin Time Ratio 0.9 INR International Normalized Ratio 0.86 Activated Partial Thromboplast Time 24.9 Sec Sodium Level 136 mmol/L Potassium Level 4.0 mmol/L Chloride Level 101 mmol/L Carbon Dioxide Level 27 mmol/L Anion Gap 8 Blood Urea Nitrogen 29 mg/dl Creatinine 0.67 mg/dl Est Glomerular Filtrat Rate mL/min > 60 mL/min Glucose Level 100 mg/dl Calcium Level 8.3 mg/dl Total Bilirubin 0.6 mg/dl Direct Bilirubin 0.00 mg/dl Indirect Bilirubin 0.6 mg/dl Aspartate Amino Transf (AST/SGOT) 22 IU/L Alanine Aminotransferase (ALT/SGPT) 45 IU/L Alkaline Phosphatase 108 IU/L Troponin I < 0.012 ng/ml B-Type Natriuretic Peptide 279 PG/ML Total Protein 5.6 g/dl Albumin 2.9 g/dl Globulin 2.70 g/dl Albumin/Globulin Ratio 1.07 Lipase 17 U/L Current Medications Medications Dose Sig/Nevaeh Start Time Status Last (Trade) Ordered Route PRN Stop Time Admin Dose Reason Admin Sodium 500 ml @ Q1H STAT 09/11/18 DC 09/11/18 Chloride 500 mls/hr IV 07:24 07:35 09/11/18 08:23 40 ml ONCE STAT 09/11/18 DC 09/11/18 Miscellaneous PO 07:24 07:35 Medication 09/11/18 07:27 (Gi Cocktail (2)) [place]/ 2 tab ONCE STAT 09/11/18 DC 09/11/18 Phenobarbital PO 07:24 07:35 () 09/11/18 07:27 Nystatin 5 ml ONCE ONCE 09/11/18 DC 09/11/18 (Nystatin PO 07:30 07:35 Susp) 09/11/18 07:31 Lidocaine 15 ml ONCE ONCE 09/11/18 DC 09/11/18 (Xylocaine PO 07:30 07:36 (Viscous)) 09/11/18 07:31 Procedures/MDM IV line was established patient was placed on quarantine inspector rhythm strip revealed a sinus rhythm at about 80 bpm with upright P and T waves. Patient was afebrile EKG performed, read by me revealed a normal sinus rhythm at 75 bpm, normal axis, narrow QRS complex, no concerning ST elevations or depressions noted. 1 view chest x-ray performed, read by me revealed sternotomy wires and atelectatic changes, no acute infiltrates, no pneumothorax I administered nystatin swish and swallow for possible thrush although I suspect his tongue lesion is more an aphthous ulceration. He also received 500 cc normal saline IV for dehydration, and a GI cocktail p.o. CBC was normal, electrolytes revealed dehydration with a BUN/creatinine of 29/0.7, BNP was low, troponin was negative Differential diagnoses considered, included but not limited to acute coronary syndrome, pulmonary embolism, aortic dissection, abdominal aortic aneurysm, sepsis, stroke, meningitis, encephalitis, pneumonia, appendicitis, cholecystitis, bowel obstruction, pyelonephritis, nephrolithiasis, cystitis, as well as metabolic, hematologic, and electrolyte abnormalities. As well as abscess, cellulitis, fractures, and dislocations. Patient feels much better at this time, and vital signs are normal, symptoms have improved. I did give strict instructions to return to the ED if symptoms continue or worsen, patient will otherwise follow-up with primary care physician. Patient understood instructions and agreed to plan. Disclaimer: Inadvertent spelling and grammatical errors are likely due to EHR/dictation software use and do not reflect on the overall quality of patient care. Also, please note that the electronic time recorded on this note does not necessarily reflect the actual time of the patient encounter. Departure Diagnosis: Primary Impression: Chest pain Chest pain type: unspecified Qualified Codes: R07.9 - Chest pain, unspecified Additional Impressions: Aphthous ulcer Acute dehydration Condition: NAVNEET Tovar MD Sep 11, 2018 07:17
[2018-09-11] MEDS ORDERED: BELLADONNA/PHENOBARBITAL TAB PO STA (07:24)
[2018-09-11] MEDS ORDERED: LIDOCAINE/MYLANTA 40 ML BTL PO STA (07:24)
[2018-09-11] MEDS ORDERED: SOD CHLORIDE 0.9% 500 ML IV STA (07:24)
[2018-09-11] MEDS ORDERED: NYSTATIN SUSP 5 ML CUP PO ONE (07:30)
[2018-09-11] MEDS ORDERED: LIDOCAINE 2% VISC 15 ML CUP PO ONE (07:30)
[2018-09-11 09:56] VITALS: BP 117/67; PULSE 77; RESP 18
[2018-09-11] MEDS ORDERED: MAG355OR14 PO (10:09)
[2018-09-11] MEDS ORDERED: NYST1000 PO (10:09)
== END 2018-09-11 10:24 | disposition home or self-care (01) ==
LOC: E/R 06:03
DX: R07.9 Chest pain, unspecified (principal); I10 Essential (primary) hypertension; E86.0 Dehydration; K12.0 Recurrent oral aphthae; E11.9 Type 2 diabetes mellitus without complications; Z79.4 Long term (current) use of insulin; Z79.82 Long term (current) use of aspirin; Z95.1 Presence of aortocoronary bypass graft; Z87.891 Personal history of nicotine dependence
CPT/HCPCS: 71045; 80053; 83690; 83880; 84484; 85025; 85610; 85730; 93005; J7040; Z7610

== ENCOUNTER 2018-09-26 11:05 | Inpatient (IN) | payer BC ==
[~2018-09-26] VITALS: Ht 165.1 cm; Wt 64.6 kg
[~2018-09-26 11:05] MED LIST changes: +MAG355OR14 PO; +NYST1000 PO
--- NOTE | 2018-09-26 15:23 | ERD ---
ER Documentation Chief Complaint Chief Complaint bilateral leg swelling x 3 days, dx shingles did not take acyclovir HPI The patient is a 63-year-old male, presenting to the ER because of left lower extremity shingle for the last 12 days, seen by his physician a week ago, treated with acyclovir however he did not take the medication. He complains of generalized weakness, left leg swollen, denies fever, chills, cough, neck pain, chest pain, dyspnea, abdominal pain, vomiting. He used to smoke until 7 years ago, denies drinking Past medical history: Dyslipidemia, hypertension, diabetes mellitus, CAD, ulcerative colitis Past surgical history: CABG, cholecystectomy ROS All systems reviewed and are negative except as per history of present illness. Medications Home Meds Active Scripts Mag Hydrox/Al Hydrox/Simeth (Maalox Advanced Suspension) 355 Ml Oral.susp, 2 TSP PO TID PRN for PAIN, #20 OZ Prov:NAVNEET GORDON MD 09/11/18 Mesalamine* (Rowasa Enema*) 4 Gm/60 Ml Soln, 4 GM AR AM for 30 Days Prov:LUTHER HEBERT MD 08/24/18 Mesalamine (Delzicol) 400 Mg Cap.drtab., 800 MG PO TID for 30 Days Prov:LUTHER HEBERT MD 08/24/18 Reported Medications Pantoprazole* (Pantoprazole*) 40 Mg Tablet.dr, 40 MG PO AC BREAKFAST, TAB 09/26/18 Metoprolol Succinate* (Toprol XL*) 100 Mg Tab.sr.24h, 100 MG PO DAILY, #30 TAB 09/26/18 Isosorbide Mononitrate* (Isosorbide Mononitrate*) 20 Mg Tablet, 20 MG PO DAILY, TAB 09/26/18 Insulin Glargine,Hum.rec.anlog (Calixto Pineda) 300 Unit/1 Ml Insuln.pen, 24 UNIT SQ QHS, EA 09/26/18 Gemfibrozil* (Gemfibrozil*) 600 Mg Tablet, 600 MG PO BID, TAB 09/26/18 Atorvastatin Calcium* (Atorvastatin Calcium*) 20 Mg Tablet, 20 MG PO QHS, #30 TAB 09/26/18 Aspirin* (Aspirin* EC) 81 Mg Tablet.dr, 81 MG PO DAILY, TAB 09/26/18 Amlodipine Besylate* (Amlodipine Besylate*) 2.5 Mg Tablet, 2.5 MG PO DAILY, #30 TAB 09/26/18 Hyoscyamine Sulfate* (Hyoscyamine Sulfate*) 0.125 Mg Tab.subl, 0.125 MG SL Q8 PRN for DISTENSION/GAS/BLOATING, TAB 08/21/18 Nepafenac (ILEVRO) 1.7 Ml Drops.susp, 1 DROP OP Q12 for Left eye 08/20/18 Diclofenac Sodium* (Diclofenac Oph*) 2.5 Ml Drops, 1 DROP RIGHT EYE BID, #1 EA 08/20/18 Prednisolone Acetate* (Pred Forte*) 5 Ml Susp, 1 DROP RIGHT EYE BID, EA 08/20/18 Discontinued Reported Medications Aspirin (Low Dose Aspirin) 81 Mg Tablet.dr, 81 MG PO DAILY, #30 TAB 12/29/17 Gemfibrozil* (Gemfibrozil*) 600 Mg Tablet, 600 MG PO BID, TAB 12/29/17 Amlodipine Besylate* (Amlodipine Besylate*) 2.5 Mg Tablet, 2.5 MG PO DAILY, #30 TAB 12/29/17 Atorvastatin Calcium* (Atorvastatin Calcium*) 20 Mg Tablet, 20 MG PO QHS, #30 TAB 12/29/17 Metoprolol Succinate* (Toprol XL*) 100 Mg Tab.sr.24h, 100 MG PO DAILY, #30 TAB 12/29/17 Isosorbide Mononitrate* (Isosorbide Mononitrate*) 20 Mg Tablet, 20 MG PO DAILY, TAB 12/29/17 Pantoprazole* (Protonix*) 40 Mg Tablet.dr, 40 MG PO DAILY, TAB 12/29/17 Insulin Glargine,Hum.rec.anlog ([place]akin Solostar) 300 Unit/1 Ml Insuln.pen, 24 UNIT SQ QHS, EA 12/29/17 Discontinued Scripts Nystatin (Nystatin) 100,000 Unit/1 Ml Oral.susp, 2.5 ML PO BID for 7 Days, #60 ML Prov:NAVNEET GORDON MD 09/11/18 Ciprofloxacin Hcl* (Ciprofloxacin Hcl*) 500 Mg Tablet, 500 MG PO BID for 10 Days, #14 TAB Prov:LUTHER HEBERT MD 08/24/18 Prednisone* (Prednisone*) 10 Mg Tab, 30 MG PO BID for 5 Days, TAB prednisone 30 mg po bid for 5 days, then 30 mg po qam, 25 mg po qpm for 5 days, then 25 mg po bid for 5 days, then 25 mg po qam, 20 mg po qpm for 5 days, then 20 mg po bid for 5 days, then 35 mg po daily for 5 days, then 30 mg po daily for 5 days then adjust di=poarch per GI Prov:LUTHER HEBERT MD 08/24/18 Allergies Allergies: Coded Allergies: simvastatin (Verified Allergy, Unknown, 09/27/18) PMhx/Soc History of Surgery: Yes (bypass 16 years ago,gallstone removal) Anesthesia Reaction: No Hx Neurological Disorder: No Hx Respiratory Disorders: No Hx Cardiac Disorders: Yes (hx bypass surgery) Hx Psychiatric Problems: No Hx Miscellaneous Medical Probl: [facility] Hx Alcohol Use: Yes (occasionally during younger years) Hx Substance Use: No Hx Tobacco Use: No Physical Exam Vitals Vital Signs Date Temp Pulse Resp B/P (MAP) Pulse Ox O2 O2 Flow FiO2 Time Delivery Rate 09/26/18 98.6 81 20 118/69 96 Room Air 18:45 (85) 09/26/18 98.6 91 16 134/71 96 Room Air 17:59 (92) 09/26/18 98.6 88 18 128/71 96 Room Air 16:27 (90) 09/26/18 98.6 89 18 138/76 96 11:23 (96) Physical Exam Const: No acute distress. Head: Atraumatic. Eyes: Normal Conjunctiva. ENT: Normal External Ears, Nose and Mouth. Neck: Full range of motion. No meningismus. Resp: Clear to auscultation bilaterally. Cardio: Regular rate and rhythm. Abd: Soft, non distended, normal bowel sounds, non tender. Skin: No petechiae or rashes. Back: No midline or flank tenderness. Ext: No cyanosis, or edema. Left lower extremity with maculopapular erythematous rash extending to the left lower back, no vesicle, left calf tenderness and bl edema, more on the left than the right Neur: Awake and alert. No focal deficit Psych: Normal Mood and Affect. Result Diagram: 09/27/1865709/27/18657 Results 24 hrs Laboratory Tests Test 09/26/18 16:20 09/26/18 18:16 White Blood Count 4.4 10^3/ul Red Blood Count 4.91 10^6/ul Hemoglobin 11.5 g/dl Hematocrit 36.6 % Mean Corpuscular Volume 74.5 fl Mean Corpuscular Hemoglobin 23.4 pg Mean Corpuscular Hemoglobin Concent 31.4 g/dl Red Cell Distribution Width 19.5 % Platelet Count 276 10^3/UL Mean Platelet Volume 9.9 fl Immature Granulocytes % 2.300 % Neutrophils % 80.7 % Lymphocytes % 13.8 % Monocytes % 2.7 % Eosinophils % 0.0 % Basophils % 0.5 % Nucleated Red Blood Cells % 0.0 /100WBC Immature Granulocytes # 0.100 10^3/ul Neutrophils # 3.6 10^3/ul Lymphocytes # 0.6 10^3/ul Monocytes # 0.1 10^3/ul Eosinophils # 0.0 10^3/ul Basophils # 0.0 10^3/ul Nucleated Red Blood Cells # 0.0 10^3/ul Urine Osmolality 873 mOsm/kg Urine Random Sodium 63 mmol/L Sodium Level 126 mmol/L Potassium Level 4.4 mmol/L Chloride Level 91 mmol/L Carbon Dioxide Level 30 mmol/L Anion Gap 5 Blood Urea Nitrogen 20 mg/dl Creatinine 0.69 mg/dl Est Glomerular Filtrat Rate mL/min > 60 mL/min Glucose Level 147 mg/dl Calcium Level 7.9 mg/dl B-Type Natriuretic Peptide 90 PG/ML Current Medications Medications Dose Sig/Nevaeh Start Time Status Last (Trade) Ordered Route PRN Stop Time Admin Dose Reason Admin Morphine 2 mg ONCE STAT 09/26/18 DC 09/26/18 Sulfate IV 19:48 20:02 (morphine) 09/26/18 19:51 Ondansetron 4 mg ONCE STAT 09/26/18 DC 09/26/18 HCl (Zofran IV 19:48 20:02 Inj) 09/26/18 19:51 Procedures/MDM [place] [id number] Radiology Main Line: [phone] DIAGNOSTIC IMAGING REPORT Patient: VANESSA ROSA : 1955 Age: 63 Sex: M MR #: [id number] DOS: 09/26/18 1532 Ordering MD: VALENTINO WHITING MD Location: E/R Room/Bed: PROCEDURE: XR Chest. CLINICAL INDICATION: chest pain TECHNIQUE: Single frontal view of the chest was obtained COMPARISON: CHEST 09/11/2018; SD DX CHEST 02/08/2015; CR CHEST 12/20/2013 FINDINGS: The heart and mediastinum are within normal limits. The patient is status post CABG. The lungs are clear. There is no pleural effusion or pneumothorax. RPTAT: AA IMPRESSION: No acute disease. .Froylan Yi MD, MD Date Time Electronically viewed and signed by .Froylan Yi MD, on 09/26/2018 16:41 .S/ CC: VALENTINO WHITING MD [id number] [place] [address] Radiology Main Line: [phone] DIAGNOSTIC IMAGING REPORT Patient: VANESSA ROSA : 1955 Age: 63 Sex: M MR #: [id number] DOS: 09/26/18 1532 Ordering MD: VALENTINO WHITING MD Location: E/R Room/Bed: PROCEDURE: US Lower extremity Venous. CLINICAL INDICATION: Bilateral leg edema TECHNIQUE: Multiple sonographic images of the bilateral lower extremity deep venous system was obtained utilizing grayscale, color-flow, compressive sonography and doppler imaging with augmentation. The images were reviewed on a PACS workstation. COMPARISON: None. FINDINGS: There is normal compressibility and flow within the bilateral common femoral, femoral, and popliteal veins. Visualized calf veins are patent. IMPRESSION: No sonographic evidence for deep venous thrombosis. RPTAT: [facility] Physician Brian Date Time Electronically viewed and signed by Susan Womack Physician on 09/26/2018 15:55 ME/ CC: VALENTINO WHITING MD [phone] EKG: Read by emergency physician Rate/Rhythm: Normal Sinus Rhythm 91 beats/min QRS, ST, T-waves: No ST elevation, nonspecific ST abnormality Impression: Abnormal EKG MEDICAL MAKING DECISION: The patient is a 63-year-old male, presenting with a cute hyponatremia, subacute single. He was treated with 500 mm normal saline for acute hypovolemic hyponatremia, morphine 2 mg IV for pain, Zofran 4 mg IV for now sent with good response. The differential diagnoses considered include but are not limited to CHF, electrolyte imbalance, cellulitis, DVT Departure Diagnosis: Primary Impression: Hyponatremia Additional Impressions: Shingles Peripheral edema Anemia Leukopenia Condition: Stable Comments I discussed the findings with the patient. I discussed the patient with Dr Morelos at 7:50 PM, who was made aware of the lab, the treatment, the patient condition. The patient is admitted to [facility] Disclaimer: Inadvertent spelling and grammatical errors are likely due to EHR/dictation software use and do not reflect on the overall quality of patient care. Also, please note that the electronic time recorded on this note does not necessarily reflect the actual time of the patient encounter. VALENTINO WHITING MD September 26, 2018 15:23
[2018-09-26] MEDS ORDERED: AMLO2.5T78 PO (19:45)
[2018-09-26] MEDS ORDERED: ASPI-817 PO (19:46)
[2018-09-26] MEDS ORDERED: ATOR20TA38 PO (19:46)
[2018-09-26] MEDS ORDERED: GEMF600T8 PO (19:47)
[2018-09-26] MEDS ORDERED: morphine 2 MG INJ IV STA (19:48)
[2018-09-26] MEDS ORDERED: INSU300I SQ (19:48)
[2018-09-26] MEDS ORDERED: ONDANSETRON 4 MG INJ IV STA (19:48)
[2018-09-26] MEDS ORDERED: METO-336 PO (19:49)
[2018-09-26] MEDS ORDERED: ISM20 PO (19:49)
[2018-09-26] MEDS ORDERED: PANT40TA4 PO (19:50)
[2018-09-26] MEDS ORDERED: SOD CHLORIDE 0.9% 500 ML IV ONE ×2 (20:00→21:30)
[2018-09-26] MEDS ORDERED: NACL 0.9% 3 ML SYG IV SCH (20:30)
[2018-09-26] MEDS ORDERED: ACETAMINOPHEN 325 MG TAB PO PRN (20:30)
[2018-09-26] MEDS ORDERED: BISACODYL (EC) 5 MG TAB PO PRN (20:30)
[2018-09-26] MEDS ORDERED: ONDANSETRON 4 MG INJ IV PRN (20:30)
[2018-09-26] MEDS ORDERED: DOCUSATE SODIUM 100 MG CAP PO PRN (20:30)
[2018-09-26] MEDS ORDERED: PREDNISOLONE ACET 1% 5 ML OPH RIGHT EYE SCH (21:30)
[2018-09-26] MEDS ORDERED: NON-FORMULARY/PATIENT OWN MED (Nepafenac (Ilevro) 1 DROP) OP SCH (21:30)
[2018-09-26] MEDS ORDERED: DEXTROSE 50% 50 ML SYRINGE IV PRN ×2 (22:00)
[2018-09-26] MEDS ORDERED: GLUCAGON 1 MG INJ IM PRN (22:00)
[2018-09-26] MEDS ORDERED: GLUCOSE GEL 15 GRAM TUBE PO PRN ×2 (22:00)
[2018-09-26] MEDS ORDERED: GLUCOSE GEL 15 GRAM TUBE BUCCAL PRN (22:00)
[2018-09-26 22:35] VITALS: PULSE 82
[2018-09-26 22:37] VITALS: Ht 165.1 cm; Wt 64.6 kg
[2018-09-26] MEDS ORDERED: DICLOFENAC 0.1% 2.5 ML OPH RIGHT EYE SCH (23:00)
[2018-09-26] MEDS: HYDROCODONE/APAP (5/325) TAB PO SCH (23:43)
[2018-09-27] VITALS (8 sets, daily range): BP systolic 115–152; BP diastolic 61–69; PULSE 61–80; RESP 16–20
[2018-09-27] MEDS: valACYclovir 500 MG TAB PO SCH ×4 (00:01→20:34)
[2018-09-27] MEDS: MESALAMINE (EC) 400 MG CAP PO SCH ×4 (00:49→20:34)
[2018-09-27] MEDS: predniSOLONE (3 MG/ML) CUP PO SCH ×3 (00:49→20:34)
[2018-09-27] MEDS: morphine 2 MG INJ IV PRN ×3 (00:57→15:41)
--- NOTE | 2018-09-27 03:32 | HP ---
Date/Time of Note Date/Time of Note DATE: 09/27/18 TIME: 03:32 Assessment/Plan VTE Prophylaxis SCD applied (from Nsg): Yes Pharmacological prophylaxis: NA/contraindicated Pharm contraindication: low risk/ambulating Lines/Catheters IV Catheter Type (from Nrsg): Saline Lock Assessment/Plan Hospital Course This is a 63-year-old male being admitted to the [facility] floor for: #1 hyponatremia: Likely secondary to poor p.o. intake versus SIADH. Patient does have dry mucous membranes and poor appetite which make me think more so poor p.o. intake. Patient did receive 500 cc bolus in the emergency department I will continue another 500 cc normal saline bolus. Will check urine studies including urine sodium, microscopic UA, osmolality. Will consult nephrology Dr. Jovel #2 left thigh rash: Suspect shingles, though drug reaction is also on the differential. There is no other rash visible on examination of the rest of his body, no oral lesions. No sloughing of the skin. Patient is afebrile. At the current time will treat for suspected shingles with valacyclovir despite the fact that the rash has been there for greater than 72 hours. We will also treat with PRN Roxbury and morphine for pain. Will check an ESR and CRP. Will hold off on any antibiotics as I do not suspect that this is a cellulitis. This possibly could be a drug reaction however given the isolated nature of it I think this is less likely #3 HTN: Resume home medications #4 CAD: S/p CABG: We will hold aspirin at the current time, continue home meds, #5 IDDM: Diabetic diet, last a1c 6.8. continue to monitor. #6 ulcerative colitis: Resume home medications finish steroid taper #7 DVT GI prophylaxis: SCDs, Protonix #8 microcytic anemia: Appears to be chronic in nature secondary to patient's ulcerative colitis likely. Monitor closely. Further treatment strategy will be implemented as per the clinical course Result Diagram: 09/26/18 1620 09/26/18 1816 Results 24hrs Laboratory Tests Test 09/26/18 16:20 09/26/18 18:16 09/27/18 01:00 White Blood Count 4.4 L Red Blood Count 4.91 Hemoglobin 11.5 L Hematocrit 36.6 L Mean Corpuscular Volume 74.5 L Mean Corpuscular Hemoglobin 23.4 L Mean Corpuscular Hemoglobin Concent 31.4 L Red Cell Distribution Width 19.5 H Platelet Count 276 # Mean Platelet Volume 9.9 Immature Granulocytes % 2.300 H Neutrophils % 80.7 H Lymphocytes % 13.8 L Monocytes % 2.7 Eosinophils % 0.0 Basophils % 0.5 Nucleated Red Blood Cells % 0.0 Immature Granulocytes # 0.100 H Neutrophils # 3.6 Lymphocytes # 0.6 L Monocytes # 0.1 L Eosinophils # 0.0 Basophils # 0.0 Nucleated Red Blood Cells # 0.0 Urine Random Sodium 63 Sodium Level 126 L Potassium Level 4.4 Chloride Level 91 L Carbon Dioxide Level 30 Anion Gap 5 Blood Urea Nitrogen 20 Creatinine 0.69 Est Glomerular Filtrat Rate mL/min > 60 Glucose Level 147 Calcium Level 7.9 L B-Type Natriuretic Peptide 90 Bedside Glucose 136 HPI/ROS Admit Date/Time Admit Date/Time September 26, 2018 at 23:26 Hx of Present Illness Chief complaint: Left thigh rash x9 days, burning, shingles This is a 63-year-old male with a history of ulcerative colitis, hypertension, coronary disease who presents with a rash of the left thigh for the last 9 days. As per the ED physician who spoke to the patient's son the patient was diagnosed with shingles of the left upper extremity and was prescribed medication however the patient did not want to take. Patient's rash has gotten worse and he describes it being painful and burning. He denies any fevers. It is stated in the left upper thigh area and has not spread to any other area. He does report tenderness to touch. Denies any fevers. Patient was discharged on 08/24/2018 from [facility] where he was treated for ulcerative colitis flare. He is currently on prednisone and is finishing his course that was prescribed by GI. He is also currently on mesalamine. He was also given ciprofloxacin for bacteremia during that hospital stay as well, he is no longer taking this. He is currently not taking ophthalmologic medications. He does report that he is also been feeling weak and has had a poor appetite as well. Allergies: Simvastatin Medications: See PANTERA ROS Const: As per HPI Eyes : No pain discharge or redness or change in visual acuity ENT: No pain, sore throat, congestion, congestion, dysphagia or discharge Respiratory: No shortness of breath, cough, sputum, wheezing, or pleuritic pain Cardiovascular: No chest pain, palpitation, PND, or edema GI : no change in appetite, abdominal pain, nausea, vomiting, diarrhea, constipation, or change in the color his stool Genitourinary: No dysuria, hematuria, flank pain , discharge or CVA tenderness Musculoskeletal: No joint pain, back pain, neck pain, restricted range of motion in neck or joints Skin: As per HPI Neuro: No headache, dizziness, syncope, seizure, focal weakness Endocrine: No polyuria, polydipsia, temperature intolerance Psych: No hallucination, depression, anxiety or suicidal ideation PMH/Family/Social Past Medical History HTN, CAD s/p CABG, IDDM, and ulcerative colitis Medications Current Medications IV Flush (NS 3 ml) 3 ml PER PROTOCOL IV ; Start 09/26/18 at 20:30 Ondansetron HCl (Zofran Inj) 4 mg Q6H PRN IV NAUSEA/VOMITING; Start 09/26/18 at 20:30 Acetaminophen (Tylenol Tab) 650 mg Q6H PRN PO .PAIN 1-3 OR TEMP; Start 09/26/18 at 20:30 Morphine Sulfate (morphine) 2 mg Q4H PRN IV .SEVERE PAIN 7-10 Last administered on 09/27/18at 00:57; Admin Dose 2 MG; Start 09/26/18 at 20:30 Docusate Sodium (Colace) 100 mg Q12H PRN PO .CONSTIPATION; Start 09/26/18 at 20:30 Bisacodyl (Dulcolax) 5 mg DAILY PRN PO .CONSTIPATION; Start 09/26/18 at 20:30 Valacyclovir HCl (Valtrex) 1,000 mg TID PO Last administered on 09/27/18at 00:01; Admin Dose 1,000 MG; Start 09/26/18 at 21:00 Insulin Glargine (Lantus) 24 units HS SC ; Start 09/27/18 at 21:00 Miscellaneous Information 1 ea NOTE XX ; Start 09/26/18 at 22:00 Glucose (Glutose) 15 gm Q15M PRN PO DECREASED GLUCOSE; Start 09/26/18 at 22:00 Glucose (Glutose) 22.5 gm Q15M PRN PO DECREASED GLUCOSE; Start 09/26/18 at 22:00 Dextrose (D50w Syringe) 25 ml Q15M PRN IV DECREASED GLUCOSE; Start 09/26/18 at 22:00 Dextrose (D50w Syringe) 50 ml Q15M PRN IV DECREASED GLUCOSE; Start 09/26/18 at 22:00 Glucagon (Glucagen) 1 mg Q15M PRN IM DECREASED GLUCOSE; Start 09/26/18 at 22:00 Glucose (Glutose) 15 gm Q15M PRN BUCCAL DECREASED GLUCOSE; Start 09/26/18 at 22:00 Atorvastatin Calcium (Lipitor) 20 mg QHS PO ; Start 09/27/18 at 21:00 Metoprolol Succinate (Toprol Xl) 100 mg DAILY PO ; Start 09/27/18 at 09:00 Pantoprazole (Protonix Tab) 40 mg AC BREAKFAST PO ; Start 09/27/18 at 07:25 Prednisolone (Prelone) 15 mg BID PO Last administered on 09/27/18at 00:49; Admin Dose 15 MG; Start 09/26/18 at 23:30 Mesalamine (Delzicol Dr) 800 mg TID PO Last administered on 09/27/18at 00:49; Admin Dose 800 MG; Start 09/26/18 at 23:30 Acetaminophen/ Hydrocodone Bitart ([place] (5/325)) 1 tab Q6H PO Last administered on 09/26/18at 23:43; Admin Dose 1 TAB; Start 09/26/18 at 23:30 Diagnostic Test (Pha) (Accu-Chek) 1 ea 02 XX ; Start 09/28/18 at 02:00 Insulin Aspart (Novolog Insulin Pen) NOVOLOG *MILD* ALGORITHM WITH MEALS BEDTIME SC ; Start 09/27/18 at 07:55 Coded Allergies: simvastatin (Verified Allergy, Unknown, 09/27/18) Past Surgical History CABG Past Surgical Hx: cholecystectomy Family History Significant Family History: no pertinent family hx Social History Alcohol Use: none Smoking Status: Former smoker Drug Use: none Exam/Review of Systems Vital Signs Vitals Vital Signs Date Temp Pulse Resp B/P (MAP) Pulse Ox O2 O2 Flow FiO2 Time Delivery Rate 09/27/18 98.6 78 20 152/69 95 00:00 (96) 09/26/18 Room Air 21:59 Nasal Cannula Exam Exam General: Patient currently lying in bed, he does appear to be fatigued but is able to answer questions appropriately and is pleasant HEENT: Atraumatic, normocephalic. The pupils are equal, round and reactive. Ext raocular motor are intact, mucous membranes dry, no oral mucosal lesions Neck: Supple with full range of motion. No rigidity or meningismus Lungs: Clear to auscultation bilaterally no crackles rales or wheezing Heart: Normal S1-S2, Regular rhythm and rate. No murmur, S3, or S4 Abdomen: Soft , nontender, nondistended , bowel sounds are present. No guarding no rebound tenderness , No masses or organomegaly. No costovertebral temporal angle mass Extremities: Normal to inspection, no edema no cyanosis Skin: Left upper thigh: Maculopapular rash, nonblanching, tender to touch, crusting, mild blister formation, no bleeding noted no sloughing of the skin Neurologic: Normal mental status, speech normal, cranial nerves II through XII are intact, motor and sensory are intact, Additional Comments PROCEDURE: XR Chest. CLINICAL INDICATION: chest pain TECHNIQUE: Single frontal view of the chest was obtained COMPARISON: CHEST 09/11/2018; MARY VALENTINE CHEST 02/08/2015; CR CHEST 12/20/2013 FINDINGS: The heart and mediastinum are within normal limits. The patient is status post CABG. The lungs are clear. There is no pleural effusion or pneumothorax. RPTAT: AA IMPRESSION: No acute disease. .Froylan Yi MD, Date Time Electronically viewed and signed by .Froylan Yi MD, MD on 09/26/2018 16:41 .S/ CC: VALENTINO WHITING MD [id number] MARIXA CHAUDHARI September 27, 2018 03:32
[2018-09-27] MEDS: PANTOPRAZOLE (EC) 40 MG TAB PO SCH (06:26)
[2018-09-27] MEDS: HYDROCODONE/APAP (5/325) TAB PO SCH ×3 (06:35→17:25)
[2018-09-27] MEDS ORDERED: SOD CHLORIDE 0.9% 500 ML IV ONE (08:00)
[2018-09-27] MEDS: INSULIN ASPART [NOVOLOG] 3 ML PEN SC SCH ×4 (08:00→20:39)
[2018-09-27] MEDS ORDERED: MESALAMINE (EC) 400 MG CAP PO SCH (09:00)
[2018-09-27] MEDS ORDERED: ISOSORBIDE MONONITRATE 20 MG TAB PO SCH (09:00)
[2018-09-27] MEDS: AMLODIPINE 2.5 MG TAB PO SCH (09:43)
[2018-09-27] MEDS: METOPROLOL (XL) 100 MG TAB PO SCH (09:43)
--- NOTE | 2018-09-27 16:15 | CONS ---
DATE OF ADMISSION: 09/26/2018 DATE OF CONSULTATION: 09/27/2018 TYPE OF CONSULTATION: Nephrology. REASON FOR CONSULTATION: Hyponatremia. PHYSICIAN REQUESTING CONSULT: Carlos Chaudhari MD HISTORY OF PRESENT ILLNESS: This is a 63-year-old male with past medical history of coronary artery disease, history of hypertension, history of diabetes, history of ulcerative colitis, who presents to [facility] with left eye rash x9 days. The patient was recently diagnosed with sh ingles and was with medication. However, the patient does not want to take it. The patient st ates his rash has gotten worse, described as being painful and burning. Denies any fevers. The dwaine ent was also recently admitted to [facility] and diagnosed with ulcerative colitis and was started on prednisone and mesalamine. Currently upon to emergency room, the patient had labo ratory data drawn which showed a white count of 4.0. The patient had a chest x-ray which showed no a cute findings and a venous ultrasound showed no acute DVT. In terms of patient's renal history on admission, the patient has sodium level of 126 mEq/L. The pat ient's sodium levels improved to 129 mEq/L. The patient describes having minimal free water intake. Denies any hemoptysis, hematemesis, any frothy urine. PAST MEDICAL HISTORY: History of coronary artery disease, history of diabetes, history of hypertensi on, recent history of diagnosis of ulcerative colitis. PAST SURGICAL HISTORY: Status post CABG. FAMILY HISTORY: No family history of kidney disease. SOCIAL HISTORY: Does not drink, smoke or do drugs. MEDICATIONS: Have been reviewed. ALLERGIES: ZOCOR. REVIEW OF SYSTEMS: A 14-point review of systems was conducted. Pertinent positives as stated in the HPI, otherwise negative. PHYSICAL EXAMINATION: VITAL SIGNS: Blood pressure is 129/63, respirations 16, pulse 61, temperature 97.7. HEENT: Head is normocephalic. NECK: Supple. HEART: Regular rate. LUNGS: Show diminished breath sounds at base. ABDOMEN: Soft, nontender to palpation without rebound or guarding. EXTREMITIES: Negative for clubbing or cyanosis. Positive erythema on patient's left thigh. MUSCULOSKELETAL: No joint effusion. NEUROLOGIC: No focal deficits. LABORATORY DATA: Have been reviewed. ASSESSMENT AND PLAN: 1. Hyponatremia. Etiology is possibly due to underlying syndrome of inappropriate antidiuretic horm one. Possible component of hemodynamics is a consideration. The patient's initial urinalysis does s how findings consistent with syndrome of inappropriate antidiuretic hormone. The patient's sodium le vels however did increase after being given small course of IV fluids. Plan is to continue to monito r serial sodium levels. We will repeat urine sodium, urine osmolality. Would continue the patient's free water restriction. Continue to encourage high osmolar intake. We will recommend to discontinu e IV fluids. Monitor serial sodium levels closely. 2. Anemia. Monitor hemoglobin and hematocrit levels. 3. Hypertension. Continue current blood pressure regimen. 4. Diabetes. Continue current insulin regimen. 5. History of coronary artery disease, status post CABG. Continue medical management. 6. Left thigh rash, questionable shingles. The patient is currently on antiretroviral therapy. We will continue. Continue pain management. 7. History of ulcerative colitis. Continue current medical management. Thank you, Dr. Chaudhari, for this interesting consult. It will be a pleasure to follow patient with vicki oliva throughout the hospital course. Dictated By: DAMIAN WONG DO NR/NTS Conf#: [id number] DID#: [id number] CC: JESENIA PIZANO MD; CARLOS CHAUDHARI MD;*[facility]*
[2018-09-27] MEDS: ISOSORBIDE MONONITRATE(SR)30 MG TAB PO SCH (16:35)
--- NOTE | 2018-09-27 18:23 | PN ---
Date/Time of Note Date/Time of Note DATE: 09/27/18 TIME: 18:15 Assessment/Plan VTE Prophylaxis Risk score (from Nsg)>0 risk: 3 SCD applied (from Ns): No SCD contraindicated: other (no) Pharmacological prophylaxis: NA/contraindicated Pharm contraindication: low risk/ambulating Lines/Catheters IV Catheter Type (from Nrsg): Saline Lock Assessment/Plan Assessment/Plan This is a 63-year-old male being admitted to the [facility] floor for: #1 hyponatremia: - Likely secondary to poor p.o. intake. Increased appropriately after bolus. - consulted nephrology Dr. Jovel #2 left thigh rash: - Suspect shingles, the appearance is characteristic and it follows the L3 dermatome. - Will treat with valacyclovir. - Prn norco for pain, also lidocaine cream. - Will monitor for improvement before discharge. #3 HTN: Resume home medications #4 CAD: S/p CABG: We will hold aspirin at the current time, continue home meds, #5 IDDM: Diabetic diet, last a1c 6.8. continue to monitor. #6 ulcerative colitis: Resume home medications finish steroid taper #7 DVT GI prophylaxis: SCDs, Protonix #8 microcytic anemia: Appears to be chronic in nature secondary to patient's ulcerative colitis likely. Monitor closely. Further treatment strategy will be implemented as per the clinical course Result Diagram: 09/27/18 0658 09/27/18 0658 Subjective 24 Hr Interval Summary Free Text/Dictation No acute overnight events. Pain adequately controlled. Exam/Review of Systems Exam Vitals Vital Signs Date Temp Pulse Resp B/P (MAP) Pulse Ox O2 O2 Flow FiO2 Time Delivery Rate 09/27/18 140/66 16:34 (90) 09/27/18 97.7 65 16 94 Room Air 14:29 61 Intake and Output 09/26/18 09/26/18 09/27/18 1515:00 23:00 07:00 IntakeIntake Total 800 ml OutputOutput Total 500 ml BalanceBalance 300 ml Exam General: Patient currently lying in bed, he does appear to be fatigued but is able to answer questions appropriately and is pleasant HEENT: Atraumatic, normocephalic. Neck: Supple with full range of motion. No rigidity or meningismus Lungs: Clear to auscultation bilaterally no crackles rales or wheezing Heart: Normal S1-S2, Regular rhythm and rate. No murmur, S3, or S4 Abdomen: Soft , nontender, nondistended , bowel sounds are present. Extremities: Normal to inspection, no edema no cyanosis Skin: Left upper thigh: Maculopapular rash, nonblanching, tender to touch, crusting, mild blister formation, no bleeding noted no sloughing of the skin. Limited to L3 dermatome. Results Results 24hrs Laboratory Tests Test 09/26/18 18:16 09/27/18 01:00 09/27/18 06:58 09/27/18 08:52 Sodium Level 126 L 129 L Potassium Level 4.4 4.2 Chloride Level 91 L 95 L Carbon Dioxide Level 30 28 Anion Gap 5 6 Blood Urea Nitrogen 20 16 Creatinine 0.69 0.68 Est Glomerular > 60 > 60 Filtrat Rate mL/min Glucose Level 147 107 # Calcium Level 7.9 L 7.9 L B-Type Natriuretic 90 Peptide Bedside Glucose 136 102 White Blood Count 4.0 L Red Blood Count 4.53 L Hemoglobin 10.5 L Hematocrit 34.0 L Mean Corpuscular 75.1 L Volume Mean Corpuscular 23.2 L Hemoglobin Mean Corpuscular 30.9 L Hemoglobin Concent Red Cell 19.9 H Distribution Width Platelet Count 232 Mean Platelet Volume 9.4 Immature 1.500 H Granulocytes % Neutrophils % 83.4 H Segmented 65 Neutrophils % (Manual) Band Neutrophils % 19 H (Manual) Lymphocytes % 11.3 L Lymphocytes % 13 L (Manual) Monocytes % 3.8 Monocytes % (Manual) 3 Eosinophils % 0.0 Basophils % 0.0 Nucleated Red Blood 0.0 Cells % Immature 0.060 H Granulocytes # Neutrophils # 3.3 Neutrophils # 2.6 (Manual) Band Neutrophils # 0.7 H Lymphocytes (Manual) 0.5 L Lymphocytes # 0.5 L Monocytes # 0.2 L Monocytes # (Manual) 0.1 L Eosinophils # 0.0 Basophils # 0.0 Nucleated Red Blood 0.0 Cells # Platelet Estimate NORMAL Poikilocytosis 1+ Anisocytosis 1+ Microcytosis 1+ Ovalocytes 1+ Erythrocyte 27 H Sedimentation Rate Osmolality 267 L Magnesium Level 2.2 Total Bilirubin 0.5 Direct Bilirubin 0.00 Indirect Bilirubin 0.5 Aspartate Amino 20 Transf (AST/SGOT) Alanine 38 Aminotransferase (AL T/SGPT) Alkaline Phosphatase 105 C-Reactive Protein 1.4 H Total Protein 5.5 L Albumin 2.7 L Globulin 2.80 Albumin/Globulin 0.96 Ratio Thyroid Stimulating 0.286 L Hormone (TSH) Test 09/27/18 12:40 09/27/18 17:27 09/27/18 17:35 Bedside Glucose 158 211 Urine Color YELLOW Urine Clarity CLEAR Urine pH 6.0 Urine Specific 1.017 [place] Urine Ketones NEGATIVE Urine Nitrite NEGATIVE Urine Bilirubin NEGATIVE Urine Urobilinogen NEGATIVE Urine Leukocyte NEGATIVE Esterase Urine Microscopic 11 H RBC Urine Microscopic 0 WBC Urine Bacteria FEW A Urine Mucus FEW A Urine Hemoglobin 1+ H Urine Glucose NEGATIVE Urine Total Protein NEGATIVE Medications Medication Current Medications IV Flush (NS 3 ml) 3 ml PER PROTOCOL IV ; Start 09/26/18 at 20:30 Ondansetron HCl (Zofran Inj) 4 mg Q6H PRN IV NAUSEA/VOMITING; Start 09/26/18 at 20:30 Acetaminophen (Tylenol Tab) 650 mg Q6H PRN PO .PAIN 1-3 OR TEMP; Start 09/26/18 at 20:30 Morphine Sulfate (morphine) 2 mg Q4H PRN IV .SEVERE PAIN 7-10 Last administered on 09/27/18at 15:41; Admin Dose 2 MG; Start 09/26/18 at 20:30 Docusate Sodium (Colace) 100 mg Q12H PRN PO .CONSTIPATION; Start 09/26/18 at 20:30 Bisacodyl (Dulcolax) 5 mg DAILY PRN PO .CONSTIPATION; Start 09/26/18 at 20:30 Valacyclovir HCl (Valtrex) 1,000 mg TID PO Last administered on 09/27/18at 12:44; Admin Dose 1,000 MG; Start 09/26/18 at 21:00 Insulin Glargine (Lantus) 24 units HS SC ; Start 09/27/18 at 21:00 Miscellaneous Information 1 ea NOTE XX ; Start 09/26/18 at 22:00 Glucose (Glutose) 15 gm Q15M PRN PO DECREASED GLUCOSE; Start 09/26/18 at 22:00 Glucose (Glutose) 22.5 gm Q15M PRN PO DECREASED GLUCOSE; Start 09/26/18 at 22:00 Dextrose (D50w Syringe) 25 ml Q15M PRN IV DECREASED GLUCOSE; Start 09/26/18 at 22:00 Dextrose (D50w Syringe) 50 ml Q15M PRN IV DECREASED GLUCOSE; Start 09/26/18 at 22:00 Glucagon (Glucagen) 1 mg Q15M PRN IM DECREASED GLUCOSE; Start 09/26/18 at 22:00 Glucose (Glutose) 15 gm Q15M PRN BUCCAL DECREASED GLUCOSE; Start 09/26/18 at 22:00 Atorvastatin Calcium (Lipitor) 20 mg QHS PO ; Start 09/27/18 at 21:00 Metoprolol Succinate (Toprol Xl) 100 mg DAILY PO Last administered on 09/27/18 09:43; Admin Dose 100 MG; Start 09/27/18 at 09:00 Pantoprazole (Protonix Tab) 40 mg AC BREAKFAST PO Last administered on 09/27/18 06:26; Admin Dose 40 MG; Start 09/27/18 at 07:00 Prednisolone (Prelone) 15 mg BID PO Last administered on 09/27/18 09:42; Admin Dose 15 MG; Start 09/26/18 at 23:30 Mesalamine (Delzicol Dr) 800 mg TID PO Last administered on 09/27/18 12:44; Admin Dose 800 MG; Start 09/26/18 at 23:30 Acetaminophen/ Hydrocodone Bitart ([place] (5/325)) 1 tab Q6H PO Last administered on 09/27/18 17:25; Admin Dose 1 TAB; Start 09/26/18 at 23:30 Diagnostic Test (Pha) (Accu-Chek) 1 ea 02 XX ; Start 09/28/18 at 02:00 Insulin Aspart (Novolog Insulin Pen) NOVOLOG *MILD* ALGORITHM WITH MEALS BEDTIME SC Last administered on 09/27/18 17:29; Admin Dose 2 UNIT; Start 09/27/18 at 07:55 Amlodipine Besylate (Norvasc) 2.5 mg DAILY PO Last administered on 09/27/18 09:43; Admin Dose 2.5 MG; Start 09/27/18 at 09:00 Isosorbide Mononitrate (Imdur) 30 mg DAILY PO Last administered on 09/27/18 16:35; Admin Dose 30 MG; Start 09/27/18 at 16:30 JESENIA PIZANO MD September 27, 2018 18:22
[2018-09-27] MEDS ORDERED: LIDOCAINE 5% 35 GM OINT TOP PRN (18:30)
[2018-09-27] MEDS ORDERED: ATORVASTATIN 20 MG TAB PO SCH (21:00)
[2018-09-27] MEDS ORDERED: INSULIN GLARGINE [LANTus] (100 UNITS/ML) SYG SC SCH (21:00)
[2018-09-28] MEDS: HYDROCODONE/APAP (5/325) TAB PO SCH (00:23)
[2018-09-28] MEDS ORDERED: ACCU-CHEK XX SCH (02:00)
[2018-09-28 02:29] VITALS: BP 122/65; PULSE 96; RESP 18
[2018-09-28] MEDS: PANTOPRAZOLE (EC) 40 MG TAB PO SCH (06:01)
[2018-09-28 08:00] VITALS: BP 111/57; PULSE 61; RESP 18
[2018-09-28 08:05] VITALS: BP 116/56; PULSE 88; RESP 24
[2018-09-28] MEDS: AMLODIPINE 2.5 MG TAB PO SCH (08:37)
[2018-09-28] MEDS: predniSOLONE (3 MG/ML) CUP PO SCH (08:37)
[2018-09-28] MEDS: MESALAMINE (EC) 400 MG CAP PO SCH ×2 (08:37→12:59)
[2018-09-28] MEDS: METOPROLOL (XL) 100 MG TAB PO SCH (08:38)
[2018-09-28] MEDS: valACYclovir 500 MG TAB PO SCH ×2 (08:38→12:59)
[2018-09-28] MEDS: ISOSORBIDE MONONITRATE(SR)30 MG TAB PO SCH (08:38)
[2018-09-28] MEDS: INSULIN ASPART [NOVOLOG] 3 ML PEN SC SCH ×3 (08:42→17:37)
--- NOTE | 2018-09-28 10:21 | PN ---
DATE: 09/28/2018 SUBJECTIVE: The patient is stable, no events overnight. No fevers, chills, nausea or vomiting. OBJECTIVE: VITAL SIGNS: Blood pressure is 116/56, respirations 24, pulse 88, temperature 98.1. HEENT: Head is normocephalic. NECK: Supple. HEART: Regular rate. LUNGS: Show diminished breath sounds at the base. ABDOMEN: Soft, nontender to palpation without rebound or guarding. EXTREMITIES: Negative for clubbing, cyanosis, no edema. DERMATOLOGIC: No new rashes. MUSCULOSKELETAL: No joint effusion. NEUROLOGIC: No change in exam. MEDICATIONS: Reviewed. LABORATORY DATA: Reviewed. Urinalysis has been reviewed. ASSESSMENT AND PLAN: 1. Hypernatremia, etiology appears to be secondary to syndrome of inappropriate antidiuretic hormone . The patient's urine is electrolytes repleted. Findings were consistent with syndrome of inapprop riate antidiuretic hormone picture. Additionally, the patient's sodium levels are not improved after receiving IV fluids. Recommendation is for the patient to be placed on free water restriction. We will continue to monitor serum sodium levels closely. 2. Anemia. Continue to monitor hemoglobin and hematocrit levels. 3. Hypertension. Continue current blood pressure regimen. 4. Diabetes. Continue current insulin regimen. 5. History of coronary artery disease, status post coronary artery bypass graft. Continue medical m anagement. 6. Left thigh rash, possible shingles. Continue antiviral therapy. 7. History of ulcerative colitis. Continue medical management. Dictated By: DAMIAN WONG DO NR/NTS Conf#: [id number] DID#: [id number] CC: MARIXA CHAUDHARI MD; JESENIA PIZANO MD;*End*
[2018-09-28] MEDS ORDERED: VALA500T PO (14:10)
[2018-09-28] MEDS ORDERED: LIDO35.415 TOP (14:10)
--- NOTE | 2018-09-28 14:12 | PDOCDIS ---
Discharge Instructions DIAGNOSIS Discharge Diagnosis Herpes zoster CONDITION [id number] Patient Condition: [id number] Fair HOME CARE INSTRUCTIONS: [id number] Diet Instructions: [id number] Regular ACTIVITY: [id number] Activity Restrictions: [id number] No Restrictions FOLLOW UP/APPOINTMENTS Follow-up Plan 1. Take all medications as prescribed, including 7 days of valacyclovir which is an antiviral. 2. For pain, take [id number] tylenol. Also try topical lidocaine cream. 3. For very severe pain not responsive to the above, take tramadol as prescribed. 4. The virus causing this rash can spread to people with weak immune systems. Av oid contact with children who have not been vaccinated for chickenpox and women. Keep the rash covered when possible. Wash hands after handling the rash. 5. See your primary care doctor in 1-2 week. JESENIA PIZANO MD September 28, 2018 14:12
--- NOTE | 2018-09-28 18:31 | DS ---
Date/Time of Note Date/Time of Note DATE: 09/28/18 TIME: 18:28 Discharge Summary Admission/Discharge Info Admit Date/Time September 26, 2018 at 23:26 Discharge Date/Time September 28, 2018 at 17:30 Discharge Diagnosis Herpes zoster Patient Condition: Fair Consults Dr. Jovel, nephrology Hx of Present Illness Chief complaint: Left thigh rash x9 days, burning, shingles This is a 63-year-old male with a history of ulcerative colitis, hypertension, coronary disease who presents with a rash of the left thigh for the last 9 days. As per the ED physician who spoke to the patient's son the patient was diagnosed with shingles of the left upper extremity and was prescribed medication however the patient did not want to take. Patient's rash has gotten worse and he describes it being painful and burning. He denies any fevers. It is stated in the left upper thigh area and has not spread to any other area. He does report tenderness to touch. Denies any fevers. Patient was discharged on 08/24/2018 from [facility] where he was treated for ulcerative colitis flare. He is currently on prednisone and is finishing his course that was prescribed by GI. He is also currently on mesalamine. He was also given ciprofloxacin for bacteremia during that hospital stay as well, he is no longer taking this. He is currently not taking ophthalmologic medications. He does report that he is also been feeling weak and has had a poor appetite as well. Allergies: Simvastatin Medications: See [facility] Hospital Course The patient's rash was consistent with herpes zoster, of the left L3 distribution. He was started on valacyclovir. Pain was adequately controlled with tylenol and a bit of [place]. He was also noted to have hyponatremia. It was slightly responsive to IV fluids but not as much as expected. This remained stable over the hospital course and did not display and concerning downward trend. The patient has good followup and is cared for by his son at home, so I determined that discharge would be fine for him. Home Meds Active Scripts Lidocaine (LIDOCAINE) 35.44 Gm Oint...g., 1 APPLIC TOP TID PRN for pain, #1 EA 2 Refills Prov:JESENIA PIZANO MD 09/28/18 valAcyclovir Hcl* (valACYclovir Hcl*) 500 Mg Tablet, 1000 MG PO TID for 7 Days, #42 TAB Prov:JESENIA PIZANO MD 09/28/18 Mag Hydrox/Al Hydrox/Simeth (Maalox Advanced Suspension) 355 Ml Oral.susp, 2 TSP PO TID PRN for PAIN, #20 OZ Prov:NAVNEET GORDON MD 09/11/18 Mesalamine* (Rowasa Enema*) 4 Gm/60 Ml Soln, 4 GM IN AM for 30 Days Prov:LUTHER HEBERT MD 08/24/18 Mesalamine (Delzicol) 400 Mg Cap.drtab., 800 MG PO TID for 30 Days Prov:LUTHER HEBERT MD 08/24/18 Reported Medications Pantoprazole* (Pantoprazole*) 40 Mg Tablet.dr, 40 MG PO AC BREAKFAST, TAB 09/26/18 Metoprolol Succinate* (Toprol XL*) 100 Mg Tab.sr.24h, 100 MG PO DAILY, #30 TAB 09/26/18 Isosorbide Mononitrate* (Isosorbide Mononitrate*) 20 Mg Tablet, 20 MG PO DAILY, TAB 09/26/18 Insulin Glargine,Hum.rec.anlog (Calixto [place]) 300 Unit/1 Ml Insuln.pen, 24 UNIT SQ QHS, EA 09/26/18 Gemfibrozil* (Gemfibrozil*) 600 Mg Tablet, 600 MG PO BID, TAB 09/26/18 Atorvastatin Calcium* (Atorvastatin Calcium*) 20 Mg Tablet, 20 MG PO QHS, #30 TAB 09/26/18 Aspirin* (Aspirin* EC) 81 Mg Tablet.dr, 81 MG PO DAILY, TAB 09/26/18 Amlodipine Besylate* (Amlodipine Besylate*) 2.5 Mg Tablet, 2.5 MG PO DAILY, #30 TAB 09/26/18 Hyoscyamine Sulfate* (Hyoscyamine Sulfate*) 0.125 Mg Tab.subl, 0.125 MG SL Q8 PRN for DISTENSION/GAS/BLOATING, TAB 08/21/18 Nepafenac (ILEVRO) 1.7 Ml Drops.susp, 1 DROP OP Q12 for Left eye 08/20/18 Diclofenac Sodium* (Diclofenac Oph*) 2.5 Ml Drops, 1 DROP RIGHT EYE BID, #1 EA 08/20/18 Prednisolone Acetate* (Pred Forte*) 5 Ml Susp, 1 DROP RIGHT EYE BID, EA 08/20/18 Discontinued Reported Medications Aspirin (Low Dose Aspirin) 81 Mg Tablet.dr, 81 MG PO DAILY, #30 TAB 12/29/17 Gemfibrozil* (Gemfibrozil*) 600 Mg Tablet, 600 MG PO BID, TAB 12/29/17 Amlodipine Besylate* (Amlodipine Besylate*) 2.5 Mg Tablet, 2.5 MG PO DAILY, #30 TAB 12/29/17 Atorvastatin Calcium* (Atorvastatin Calcium*) 20 Mg Tablet, 20 MG PO QHS, #30 TAB 12/29/17 Metoprolol Succinate* (Toprol XL*) 100 Mg Tab.sr.24h, 100 MG PO DAILY, #30 TAB 12/29/17 Isosorbide Mononitrate* (Isosorbide Mononitrate*) 20 Mg Tablet, 20 MG PO DAILY, TAB 12/29/17 Pantoprazole* (Protonix*) 40 Mg Tablet.dr, 40 MG PO DAILY, TAB 12/29/17 Insulin Glargine,Hum.rec.anlog ([place] Solostar) 300 Unit/1 Ml Insuln.pen, 24 UNIT SQ QHS, EA 12/29/17 Discontinued Scripts Nystatin (Nystatin) 100,000 Unit/1 Ml Oral.susp, 2.5 ML PO BID for 7 Days, #60 ML Prov:NAVNEET GORDON MD 09/11/18 Ciprofloxacin Hcl* (Ciprofloxacin Hcl*) 500 Mg Tablet, 500 MG PO BID for 10 Days, #14 TAB Prov:LUTHER HEBERT MD 08/24/18 Prednisone* (Prednisone*) 10 Mg Tab, 30 MG PO BID for 5 Days, TAB prednisone 30 mg po bid for 5 days, then 30 mg po qam, 25 mg po qpm for 5 days, then 25 mg po bid for 5 days, then 25 mg po qam, 20 mg po qpm for 5 days, then 20 mg po bid for 5 days, then 35 mg po daily for 5 days, then 30 mg po daily for 5 days then adjust di=[place] per GI Prov:LUTHER HEBERT MD 08/24/18 Follow-up Plan 1. Take all medications as prescribed, including 7 days of valacyclovir which is an antiviral. 2. For pain, take tifg-pjw-xcllntz tylenol. Also try topical lidocaine cream. 3. For very severe pain not responsive to the above, take tramadol as prescribed. 4. The virus causing this rash can spread to people with weak immune systems. Avoid contact with children who have not been vaccinated for chickenpox and women. Keep the rash covered when possible. Wash hands after handling the rash. 5. See your primary care doctor in 1-2 week. Primary Care Provider [facility] Time spent on discharge: > 30 minutes Pending Labs Laboratory Tests Test 09/27/18 20:37 09/28/18 00:26 09/28/18 07:00 09/28/18 08:34 Bedside 202 97 161 Glucose mg/dL (70-220) mg/dL (70-220) mg/dL (70-220) Sodium Level 127 mmol/L (135-14 4) Potassium 4.8 Level mmol/L (3.5-5. 1) Chloride Level 92 mmol/L (97-110 ) Carbon Dioxide 31 Level mmol/L (21-31) Anion Gap 4 (5-13) Blood Urea 17 Nitrogen mg/dl (7-20) Creatinine 0.69 mg/dl (0.61-1. 24) Est Glomerular > 60 Filtrat mL/min (>60) Rate mL/min Glucose Level 113 mg/dl (70-220) Calcium Level 7.9 mg/dl (8.4-10. 2) Phosphorus 3.2 Level mg/dl (2.5-4.9 ) Magnesium 2.1 Level mg/dl (1.7-2.5 ) Test 09/28/18 12:57 Bedside 115 Glucose mg/dL (70-220) JESENIA PIZANO MD September 28, 2018 18:31
== END 2018-09-28 17:30 | disposition home or self-care (01) | DRG 596 ==
LOC: E/R 11:05 → TEL 19:51 → CANRESERV 21:26 → OBSVTOIN 23:26 → 5EC 09-27 06:00
PROVIDERS: ADMIT Family Medicine; ATTEND Internal Medicine
DX: B02.9 Zoster without complications (principal); E87.1 Hypo-osmolality and hyponatremia; K51.90 Ulcerative colitis, unspecified, without complications; E11.8 Type 2 diabetes mellitus with unspecified complications; E78.5 Hyperlipidemia, unspecified; I25.10 Atherosclerotic heart disease of native coronary artery without angina pectoris; Z95.1 Presence of aortocoronary bypass graft; Z79.4 Long term (current) use of insulin; Z87.891 Personal history of nicotine dependence; D64.9 Anemia, unspecified; I10 Essential (primary) hypertension
CPT/HCPCS: 36415; 71045; 80048; 80053; 81001; 81003; 82043; 82962; 83735; 83880; 83930; 83935; 84100; 84155; 84300; 84443; 85025; 85651; 86140; 87081; 93005; 93970; G0378; J1815; J2270; J2405; J7040; J7510

== ENCOUNTER 2018-10-02 01:28 | Emergency (ER) | payer BC ==
[~2018-10-02] VITALS: Wt 62.0 kg
[~2018-10-02 01:28] MED LIST changes: +ASPI-817 PO; -ASPI81TA52 PO; -CIPR500T4 PO; +LIDO35.415 TOP; -NYST1000 PO; -PANT40TA3 PO; +PANT40TA4 PO; -PRED10TA PO; +VALA500T PO
[2018-10-02 01:35] VITALS: BP 141/79; PULSE 102; RESP 20
[2018-10-02] MEDS ORDERED: CETI5TAB20 PO (02:03)
[2018-10-02] MEDS ORDERED: HDRP454O TOP (02:03)
--- NOTE | 2018-10-02 02:09 | ERD ---
ER Documentation Chief Complaint Chief Complaint c/o pain/itching left thigh, recently dx with shingles. on atb HPI 63-year-old male past medical history of CAD with bypass, ulcerative colitis presents for pain issues over the left thigh. Patient was recently admitted and treated for shingles. He is currently on antiviral medication. The son states they picked up some aloe vera cream and has been putting on the leg however there is only mild relief. Patient has been taking tramadol for pain however he states he only took 1 at night. Patient states that he was concerned that he may get used to the medication so he is only been taking it once. He states that he has 5 out of 10 pain on and off. Pain is described as a burning type sensation. Denies any nausea or vomiting. Denies fevers or chills. Denies chest pain or shortness of breath. Otherwise no other modifying factors noted, no other treatment tried at home. ROS All systems reviewed and are negative except as per history of present illness. Medications Home Meds Active Scripts Hydrophilic Base* (Aquaphor*) 454 Gm-Topical Oint, 1 APPLIC TOP BID PRN for ITCHING/dryness for 10 Days, #1 JAR Prov:VALENTINO WALTERS DO 10/02/18 Cetirizine Hcl* (Cetirizine Hcl*) 5 Mg Tablet, 5 MG PO BID PRN for ITCHING, #30 TAB Prov:VALENTINO WALTERS DO 10/02/18 Lidocaine (LIDOCAINE) 35.44 Gm Oint...g., 1 APPLIC TOP TID PRN for pain, #1 EA 2 Refills Prov:JESENIA PIZANO MD 09/28/18 valAcyclovir Hcl* (valACYclovir Hcl*) 500 Mg Tablet, 1000 MG PO TID for 7 Days, #42 TAB Prov:JESENIA PIZANO MD 09/28/18 Mag Hydrox/Al Hydrox/Simeth (Maalox Advanced Suspension) 355 Ml Oral.susp, 2 TSP PO TID PRN for PAIN, #20 OZ Prov:NAVNEET GORDON MD 09/11/18 Mesalamine* (Row[place] Enema*) 4 Gm/60 Ml Soln, 4 GM GA AM for 30 Days Prov:LUTHER HEBERT MD 08/24/18 Mesalamine (Delzicol) 400 Mg Cap.drtab., 800 MG PO TID for 30 Days Prov:LUTHER HEBERT MD 08/24/18 Reported Medications Pantoprazole* (Pantoprazole*) 40 Mg Tablet.dr, 40 MG PO AC BREAKFAST, TAB 09/26/18 Metoprolol Succinate* (Toprol XL*) 100 Mg Tab.sr.24h, 100 MG PO DAILY, #30 TAB 09/26/18 Isosorbide Mononitrate* (Isosorbide Mononitrate*) 20 Mg Tablet, 20 MG PO DAILY, TAB 09/26/18 Insulin Glargine,Hum.rec.anlog ([place] Solostar) 300 Unit/1 Ml Insuln.pen, 24 UNIT SQ QHS, EA 09/26/18 Gemfibrozil* (Gemfibrozil*) 600 Mg Tablet, 600 MG PO BID, TAB 09/26/18 Atorvastatin Calcium* (Atorvastatin Calcium*) 20 Mg Tablet, 20 MG PO QHS, #30 TAB 09/26/18 Aspirin* (Aspirin* EC) 81 Mg Tablet.dr, 81 MG PO DAILY, TAB 09/26/18 Amlodipine Besylate* (Amlodipine Besylate*) 2.5 Mg Tablet, 2.5 MG PO DAILY, #30 TAB 09/26/18 Hyoscyamine Sulfate* (Hyoscyamine Sulfate*) 0.125 Mg Tab.subl, 0.125 MG SL Q8 PRN for DISTENSION/GAS/BLOATING, TAB 08/21/18 Nepafenac (ILEVRO) 1.7 Ml Drops.susp, 1 DROP OP Q12 for Left eye 08/20/18 Diclofenac Sodium* (Diclofenac Oph*) 2.5 Ml Drops, 1 DROP RIGHT EYE BID, #1 EA 08/20/18 Prednisolone Acetate* (Pred Forte*) 5 Ml Susp, 1 DROP RIGHT EYE BID, EA 08/20/18 Discontinued Reported Medications Aspirin (Low Dose Aspirin) 81 Mg Tablet.dr, 81 MG PO DAILY, #30 TAB 12/29/17 Gemfibrozil* (Gemfibrozil*) 600 Mg Tablet, 600 MG PO BID, TAB 12/29/17 Amlodipine Besylate* (Amlodipine Besylate*) 2.5 Mg Tablet, 2.5 MG PO DAILY, #30 TAB 12/29/17 Atorvastatin Calcium* (Atorvastatin Calcium*) 20 Mg Tablet, 20 MG PO QHS, #30 TAB 12/29/17 Metoprolol Succinate* (Toprol XL*) 100 Mg Tab.sr.24h, 100 MG PO DAILY, #30 TAB 12/29/17 Isosorbide Mononitrate* (Isosorbide Mononitrate*) 20 Mg Tablet, 20 MG PO DAILY, TAB 12/29/17 Pantoprazole* (Protonix*) 40 Mg Tablet.dr, 40 MG PO DAILY, TAB 12/29/17 Insulin Glargine,Hum.rec.anlog ([place] Solostar) 300 Unit/1 Ml Insuln.pen, 24 UNIT SQ QHS, EA 12/29/17 Discontinued Scripts Nystatin (Nystatin) 100,000 Unit/1 Ml Oral.susp, 2.5 ML PO BID for 7 Days, #60 ML Prov:NAVNEET GORDON MD 09/11/18 Ciprofloxacin Hcl* (Ciprofloxacin Hcl*) 500 Mg Tablet, 500 MG PO BID for 10 Days, #14 TAB Prov:LUTHER HEBERT MD 08/24/18 Prednisone* (Prednisone*) 10 Mg Tab, 30 MG PO BID for 5 Days, TAB prednisone 30 mg po bid for 5 days, then 30 mg po qam, 25 mg po qpm for 5 days, then 25 mg po bid for 5 days, then 25 mg po qam, 20 mg po qpm for 5 days, then 20 mg po bid for 5 days, then 35 mg po daily for 5 days, then 30 mg po daily for 5 days then adjust di=[place] per GI Prov:LUTHER HEBERT MD 08/24/18 Allergies Allergies: Coded Allergies: simvastatin (Verified Allergy, Unknown, 09/27/18) PMhx/Soc History of Surgery: Yes (bypass sx) Anesthesia Reaction: No Hx Neurological Disorder: No Hx Respiratory Disorders: No Hx Cardiac Disorders: Yes Hx Psychiatric Problems: No Hx Miscellaneous Medical Probl: Yes (Shingles) Hx Alcohol Use: No Hx Substance Use: No Hx Tobacco Use: Yes (former smoker 7 yrs ago) FmHx Family History: No coronary disease Physical Exam Vitals Vital Signs Date Temp Pulse Resp B/P (MAP) Pulse Ox O2 O2 Flow FiO2 Time Delivery Rate 10/02/18 97.9 102 20 141/79 99 01:35 (99) Physical Exam Const: No acute distress Resp: Clear to auscultation bilaterally Cardio: Regular rate and rhythm, no murmurs Abd: Soft, non tender, non distended. Normal bowel sounds Skin: Rash noted over the left thigh, erythematous, no current vesicles, scabbing noted with dryness. Back: No midline or flank tenderness Ext: No cyanosis, or edema Neur: Awake and alert Psych: Normal Mood and Affect Procedures/MDM Medical Decision Making: Patient presents with pain and itchiness over the distribution of his left thigh due to shingles. Patient appeared well on physical exam. Shingles appears to be resolving. There is no active vesicles. Patient advised to continue with Advair. Patient also given prescription for Aquaphor and advised to keep the area clean and moist, to prevent dryness. Patient was given prescription for Zyrtec for itchiness. Patient advised that he would need to take the tramadol every 6 hours to control his pain otherwise pain will return given that she was is highly associated with pain. Patient advised to follow up with PCP in 1-2 days. Patient advised to return to ED for new or worsening symptoms. Patient stable on discharge from the ED. Disclaimer: Inadvertent spelling and grammatical errors are likely due to EHR/dictation software use and do not reflect on the overall quality of patient care. Also, please note that the electronic time recorded on this note does not necessarily reflect the actual time of the patient encounter. Departure Diagnosis: Primary Impression: Itching Condition: Fair Patient Instructions: Self-Care for Skin Rashes Referrals: CHANCE HOWARD (PCP) Additional Instructions: Call your primary care doctor TOMORROW for an appointment during the next 1-2 days.See the doctor sooner or return here if your condition worsens before your appointment time. VALENTINO WALTERS DO October 02, 2018 02:09
== END 2018-10-02 03:08 | disposition home or self-care (01) ==
LOC: FTE 01:28
DX: L29.9 Pruritus, unspecified (principal); I25.10 Atherosclerotic heart disease of native coronary artery without angina pectoris; Z79.4 Long term (current) use of insulin; Z79.82 Long term (current) use of aspirin; Z87.891 Personal history of nicotine dependence; Z95.1 Presence of aortocoronary bypass graft
CPT/HCPCS: 99282

== ENCOUNTER 2018-10-14 15:35 | Inpatient (IN) | payer BC ==
[~2018-10-14] VITALS: Ht 165.1 cm; Wt 58.4 kg
[~2018-10-14 15:35] MED LIST changes: +CETI5TAB20 PO; +HDRP454O TOP
[2018-10-14 19:20] VITALS: BP 160/79; PULSE 89; RESP 19; Ht 165.1 cm; Wt 58.4 kg
[2018-10-14 19:40] VITALS: PULSE 82
[2018-10-14 20:00] VITALS: PULSE 82
--- NOTE | 2018-10-14 22:28 | HP ---
Date/Time of Note Date/Time of Note DATE: 10/14/18 TIME: 22:15 Assessment/Plan VTE Prophylaxis SCD applied (from Nsg): Yes Pharmacological prophylaxis: NA/contraindicated Pharm contraindication: low risk/ambulating Assessment/Plan Assessment/Plan 63 yo man with CAD s/p CABG, recent shingles, HTN, IDDM, ulcerative colitis transferred from OSH after fall. #Fall #intraventricular hemorrhage - He was hyponatremic when I discharged him last time. This may have contributed to LOC and fall. - Patient evaluated by neurology at OSH and started on Keppra. However patient denies any seizure history in the past. Will hold Keppra for now and monitor closely. - Progress notes at OSH mention possible cardiac loop recorder. This does not seem indicated in a patient without cardiac symptoms and no events on telemetry. - PT for ambulation # Left thigh shingles - Continue acyclovir - Lidocaine for pain # HTN: Resume home medications # CAD: S/p CABG: continue home meds, # IDDM: - Diabetic diet - Resume home glargine and also ISS # ulcerative colitis: Resume home medications. No symptoms of active flare. # DVT GI prophylaxis: SCDs, Protonix # microcytic anemia: Appears to be chronic in nature secondary to patient's ulcerative colitis likely. Monitor closely. HPI/ROS Admit Date/Time Admit Date/Time October 14, 2018 at 19:08 Hx of Present Illness Mr. Valadez is a Farsi-speaking man with CAD s/p CABG in 2003, HTN, IDDM, and Ulcerative Colitis well known to me. He was just discharged form this hospital 09/28 for acute left L3 dermatome shingles. On 10/10 he had a fall. Family heard a thump upstairs and saw him unresponsive on the ground. Apparently it took him a full 5 minutes to regain consciousness and he had bitten his tongue. He was admitted to [facility]. There he got w orkup including CT head showing a 7 mm left intraventricular hemorrhage in the posterior horn. On MRI had old R frontal ischemia and subcentimeter posterior L occipital trigone bleed. He was started on Keppra for suspected seizure. The patient was transferred to our hospital for unclear reasons. On review of documentation it looks like a cardiac loop recorder was considered. I spoke to the patient with [employer] japanese interpreter. He feels well, still having discomfort from his shingles. Otherwise feels well, was previously independent at home. He denies any palpitations or chest pain. He denies dysuria, urinary frequency. He denies headache or dizziness. ROS 12 point review of systems done, negative except per HPI PMH/Family/Social Past Medical History See HPI Medications Current Medications IV Flush (NS 3 ml) 3 ml PER PROTOCOL IV ; Start 10/14/18 at 22:30 Ondansetron HCl (Zofran Inj) 4 mg Q6H PRN IV NAUSEA/VOMITING; Start 10/14/18 at 22:30 Acetaminophen (Tylenol Tab) 650 mg Q6H PRN PO .PAIN 1-3 OR TEMP; Start 10/14/18 at 22:30 Amlodipine Besylate (Norvasc) 2.5 mg DAILY PO ; Start 10/15/18 at 09:00; Status UNV Aspirin (Halfprin) 81 mg DAILY PO ; Start 10/15/18 at 09:00; Status UNV Atorvastatin Calcium (Lipitor) 20 mg QHS PO ; Start 10/15/18 at 21:00; Status UNV Diclofenac Sodium (Voltaren 0.1%) 1 drop BID RIGHT EYE ; Start 10/15/18 at 09:00; Status UNV Gemfibrozil (Lopid) 600 mg BID PO ; Start 10/15/18 at 09:00; Status UNV Hydrophilic Base (Aquaphor Oint 454 Gm) 1 applic BID PRN TOP ITCHING/dryness; Start 10/14/18 at 22:30; Status UNV Hyoscyamine (Levsin (Sl)) 0.125 mg Q8 PRN SL DISTENSION/GAS/BLOATING; Start 10/14/18 at 22:30; Status UNV Isosorbide Mononitrate (Ismo) 20 mg DAILY PO ; Start 10/15/18 at 09:00; Status UNV Lidocaine (Lidocaine 5% Oint) 1 applic TID PRN TOP pain; Start 10/14/18 at 22:30; Status UNV Al Hydrox/Mg Hydrox/Simethicone (Mag-Al Plus) 10 ml TID PRN PO PAIN; Start 10/14/18 at 22:30; Status UNV Mesalamine (Delzicol Dr) 800 mg TID PO ; Start 10/15/18 at 09:00; Status UNV Metoprolol Succinate (Toprol Xl) 100 mg DAILY PO ; Start 10/15/18 at 09:00; Status UNV Pantoprazole (Protonix Tab) 40 mg AC BREAKFAST PO ; Start 10/15/18 at 07:25; Status UNV Prednisolone Acetate (Pred-Forte 1%) 1 drop BID RIGHT EYE ; Start 10/15/18 at 09:00; Status UNV Miscellaneous Information 5 mg BID PRN PO ITCHING; Start 10/14/18 at 22:30; Status UNV Miscellaneous Information 1 drop Q12 OP ; Start 10/15/18 at 09:00; Status UNV Coded Allergies: simvastatin (Verified Allergy, Unknown, 09/27/18) Past Surgical History Past Surgical Hx: cholecystectomy Family History Significant Family History: no pertinent family hx Social History Lives at home with family. Independent. Alcohol Use: none Smoking Status: Former smoker Drug Use: none Exam/Review of Systems Vital Signs Vitals Vital Signs Date Temp Pulse Resp B/P (MAP) Pulse Ox O2 O2 Flow FiO2 Time Delivery Rate 10/14/18 82 20:00 10/14/18 97.9 19 160/79 97 Room Air 19:20 (106) Exam Exam General: Well developed man lying in bed awake, alert, responsive. HEENT: Atraumatic, normocephalic. Neck: Supple with full range of motion. No rigidity or meningismus Lungs: Clear to auscultation bilaterally no crackles rales or wheezing Heart: Normal S1-S2, Regular rhythm and rate. No murmur, S3, or S4 Abdomen: Soft , nontender, nondistended , bowel sounds are present. Extremities: Normal to inspection, no edema no cyanosis Skin: Left upper thigh: Maculopapular rash along L3 dermatome with desquamation. JESENIA PIZANO MD October 14, 2018 22:27
[2018-10-14] MEDS ORDERED: AL HYDROX/MG HYDROX/SIMETH 30 ML CUP PO PRN (22:30)
[2018-10-14] MEDS ORDERED: ACETAMINOPHEN 325 MG TAB PO PRN (22:30)
[2018-10-14] MEDS ORDERED: ONDANSETRON 4 MG INJ IV PRN (22:30)
[2018-10-14] MEDS ORDERED: LIDOCAINE 5% 35 GM OINT TOP PRN (22:30)
[2018-10-14] MEDS ORDERED: HYOSCYAMINE 0.125 MG SUBL TAB SL PRN (22:30)
[2018-10-14] MEDS ORDERED: NACL 0.9% 3 ML SYG IV SCH (22:30)
[2018-10-14] MEDS ORDERED: HYDROPHILIC BASE 454 GM OINT TOP PRN (22:30)
[2018-10-14 23:17] VITALS: BP_SYST 167; BP_SYST 184; BP_DIAS 84; BP_DIAS 88; PULSE 67; RESP 18
[2018-10-14] MEDS ORDERED: AQUAPHOR 52.5 GM OINT TOP PRN (23:30)
[2018-10-14] MEDS ORDERED: GLUCOSE GEL 15 GRAM TUBE PO PRN ×2 (23:30)
[2018-10-14] MEDS ORDERED: GLUCOSE GEL 15 GRAM TUBE BUCCAL PRN (23:30)
[2018-10-14] MEDS ORDERED: DEXTROSE 50% 50 ML SYRINGE IV PRN ×2 (23:30)
[2018-10-14] MEDS ORDERED: GLUCAGON 1 MG INJ IM PRN (23:30)
[2018-10-15] VITALS (9 sets, daily range): BP systolic 107–162; BP diastolic 64–92; PULSE 61–81; RESP 18–20
[2018-10-15] MEDS: AMLODIPINE 2.5 MG TAB PO SCH ×2 (01:04→08:30)
[2018-10-15] MEDS: METOPROLOL (XL) 100 MG TAB PO SCH ×2 (01:04→08:29)
[2018-10-15] MEDS: MESALAMINE (EC) 400 MG CAP PO SCH ×3 (01:05→14:35)
[2018-10-15] MEDS ORDERED: ACCU-CHEK XX SCH (02:00)
[2018-10-15] MEDS ORDERED: PANTOPRAZOLE (EC) 40 MG TAB PO SCH (07:25)
[2018-10-15] MEDS: INSULIN ASPART [NOVOLOG] 3 ML PEN SC SCH ×2 (07:55→11:50)
[2018-10-15] MEDS ORDERED: INSULIN GLARGINE [LANTus] (100 UNITS/ML) SYG SC SCH (08:00)
[2018-10-15] MEDS ORDERED: GEMFIBROZIL 600 MG TAB PO SCH (09:00)
[2018-10-15] MEDS ORDERED: PREDNISOLONE ACET 1% 5 ML OPH RIGHT EYE SCH (09:00)
[2018-10-15] MEDS ORDERED: LORATADINE 10 MG TAB PO PRN (09:00)
[2018-10-15] MEDS ORDERED: AMLODIPINE 2.5 MG TAB PO SCH (09:00)
[2018-10-15] MEDS ORDERED: NON-FORMULARY/PATIENT OWN MED (Nepafenac (Ilevro) 1 DROP) OP SCH (09:00)
[2018-10-15] MEDS ORDERED: DICLOFENAC 0.1% 2.5 ML OPH RIGHT EYE SCH (09:00)
[2018-10-15] MEDS ORDERED: ASPIRIN (EC) 81 MG TAB PO SCH (09:00)
[2018-10-15] MEDS ORDERED: ISOSORBIDE MONONITRATE 20 MG TAB PO SCH (09:00)
[2018-10-15] MEDS ORDERED: METOPROLOL (XL) 100 MG TAB PO SCH (09:00)
[2018-10-15] MEDS ORDERED: MESALAMINE (EC) 400 MG CAP PO SCH (09:00)
[2018-10-15] MEDS ORDERED: GABA100C14 PO (14:23)
--- NOTE | 2018-10-15 14:25 | PDOCDIS ---
Discharge Instructions DIAGNOSIS Discharge Diagnosis ICH Neuropathy Shingles CONDITION [id number] Patient Condition: [id number] Stable FOLLOW UP/APPOINTMENTS Follow-up Plan Take gabapentin for neuropathic pain It is very improtant to manage your blood pressure going forward Work with physical therapy to regain your strength Stop taking aspirin for the next few weeks to avoid bleeding LUCIANA FOREMAN MD Oct 15, 2018 14:25
--- NOTE | 2018-10-15 14:43 | DS ---
Date/Time of Note Date/Time of Note DATE: 10/15/18 TIME: 14:40 Discharge Summary Admission/Discharge Info Admit Date/Time October 14, 2018 at 19:08 Discharge Date/Time Discharge Diagnosis ICH Neuropathy Shingles Patient Condition: Stable Hospital Course Patient transferred from [place] where he was diagnosed with mild ICH. From my history via procedure analyst service the patient did not syncopize or seize. He fell. Patient has been very weak lately as he has had very littel appetite since shingles infection started a few weeks ago. He is indeed quite weak. It is not clear if his ICH was due to hypertension or fall. Regardless it is not causing symptoms and he has been cleared by neurosurgery. The patinet requestsed to be discharged home and clearly has capacity to do so. I offered referral to subacute rehab but he declined this. His son told me he has arranged for physical therapy to come to the home starting this next week. Thus, I will provide gabapentin to take PRN for postherpetic neuralgia. Patient can be discharged home per his request with home health services. Home Meds Active Scripts Hydrophilic Base* (Aquaphor*) 454 Gm-Topical Oint, 1 APPLIC TOP BID PRN for ITCHING/dryness for 10 Days, #1 JAR Prov:VALENTINO WALTERS DO 10/02/18 Cetirizine Hcl* (Cetirizine Hcl*) 5 Mg Tablet, 5 MG PO BID PRN for ITCHING, #30 TAB Prov:VALENTINO WALTERS DO 10/02/18 Lidocaine (LIDOCAINE) 35.44 Gm Oint...g., 1 APPLIC TOP TID PRN for pain, #1 EA 2 Refills Prov:JESENIA PIZANO MD 09/28/18 valAcyclovir Hcl* (valACYclovir Hcl*) 500 Mg Tablet, 1000 MG PO TID for 7 Days, #42 TAB Prov:JESENIA PIZANO MD 09/28/18 Mag Hydrox/Al Hydrox/Simeth (Maalox Advanced Suspension) 355 Ml Oral.susp, 2 TSP PO TID PRN for PAIN, #20 OZ Prov:NAVNEET GORDON MD 09/11/18 Mesalamine* (Rowasa Enema*) 4 Gm/60 Ml Soln, 4 GM RI AM for 30 Days Prov:LUTHER HEBERT MD 08/24/18 Mesalamine (Delzicol) 400 Mg Cap.drtab., 800 MG PO TID for 30 Days Prov:LUTHER HEBERT MD 08/24/18 Reported Medications Pantoprazole* (Pantoprazole*) 40 Mg Tablet.dr, 40 MG PO AC BREAKFAST, TAB 09/26/18 Metoprolol Succinate* (Toprol XL*) 100 Mg Tab.sr.24h, 100 MG PO DAILY, #30 TAB 09/26/18 Isosorbide Mononitrate* (Isosorbide Mononitrate*) 20 Mg Tablet, 20 MG PO DAILY, TAB 09/26/18 Insulin Glargine,Hum.rec.anlog ([place] Solostar) 300 Unit/1 Ml Insuln.pen, 24 UNIT SQ QHS, EA 09/26/18 Gemfibrozil* (Gemfibrozil*) 600 Mg Tablet, 600 MG PO BID, TAB 09/26/18 Atorvastatin Calcium* (Atorvastatin Calcium*) 20 Mg Tablet, 20 MG PO QHS, #30 TAB 09/26/18 Aspirin* (Aspirin* EC) 81 Mg Tablet.dr, 81 MG PO DAILY, TAB 09/26/18 Amlodipine Besylate* (Amlodipine Besylate*) 2.5 Mg Tablet, 2.5 MG PO DAILY, #30 TAB 09/26/18 Hyoscyamine Sulfate* (Hyoscyamine Sulfate*) 0.125 Mg Tab.subl, 0.125 MG SL Q8 PRN for DISTENSION/GAS/BLOATING, TAB 08/21/18 Nepafenac (ILEVRO) 1.7 Ml Drops.susp, 1 DROP OP Q12 for Left eye 08/20/18 Diclofenac Sodium* (Diclofenac Oph*) 2.5 Ml Drops, 1 DROP RIGHT EYE BID, #1 EA 08/20/18 Prednisolone Acetate* (Pred Forte*) 5 Ml Susp, 1 DROP RIGHT EYE BID, EA 08/20/18 Follow-up Plan Take gabapentin for neuropathic pain It is very improtant to manage your blood pressure going forward Work with physical therapy to regain your strength Stop taking aspirin for the next few weeks to avoid bleeding Primary Care Provider [facility] Pending Labs Laboratory Tests Test 10/15/18 01:30 10/15/18 06:03 10/15/18 08:27 6/1/19 11:56 Bedside 127 94 114 Glucose mg/dL (70-220) mg/dL (70-220) mg/dL (70-220) White Blood 6.8 Count 10^3/ul (4.8-1 0.8) Red Blood 4.83 Count 10^6/ul (4.70- 6.10) Hemoglobin 11.6 g/dl (14.0-18. 0) Hematocrit 37.2 % (42.0-52.0) Mean 77.0 Corpuscular fl (82.0-101.0 Volume ) Mean 24.0 Corpuscular pg (29.0-33.0) Hemoglobin Mean 31.2 Corpuscular g/dl (32.0-37. Hemoglobin Conc 0) ent Red Cell 22.3 Distribution % (11.5-14.5) Width Platelet Count 321 10^3/UL (140-4 15) Mean Platelet 9.5 Volume fl (7.4-10.4) Immature 3.700 Granulocytes % % (0.001-0.429 ) Neutrophils % 70.9 % (39.0-77.0) Lymphocytes % 18.0 % (15.0-51.0) Monocytes % 6.3 % (0.0-11.0) Eosinophils % 0.1 % (0.0-7.0) Basophils % 1.0 % (0.0-2.0) Nucleated Red 0.0 Blood Cells % /100WBC (0.0-0 .0) Immature 0.250 Granulocytes # 10^3/ul (0.0-0 .031) Neutrophils # 4.8 10^3/ul (1.6-7 .5) Lymphocytes # 1.2 10^3/ul (0.8-2 .9) Monocytes # 0.4 10^3/ul (0.3-0 .9) Eosinophils # 0.0 10^3/ul (0.0-0 .5) Basophils # 0.1 10^3/ul (0.0-0 .1) Nucleated Red 0.0 Blood Cells # 10^3/ul (0.0-0 .0) Sodium Level 133 mmol/L (135-14 4) Potassium 4.4 Level mmol/L (3.5-5. 1) Chloride Level 101 mmol/L (97-110 ) Carbon Dioxide 27 Level mmol/L (21-31) Anion Gap 5 (5-13) Blood Urea 12 Nitrogen mg/dl (7-20) Creatinine 0.61 mg/dl (0.61-1. 24) Est Glomerular > 60 Filtrat mL/min (>60) Rate mL/min Glucose Level 102 mg/dl (70-220) Hemoglobin A1c 6.8 % (0-5.9) Calcium Level 8.7 mg/dl (8.4-10. 2) Phosphorus 3.9 Level mg/dl (2.5-4.9 ) Magnesium 2.0 Level mg/dl (1.7-2.5 ) Total 0.4 Bilirubin mg/dl (0.2-1.3 ) Direct 0.00 Bilirubin mg/dl (0.00-0. 20) Indirect 0.4 Bilirubin mg/dl (0-1.1) Aspartate Amino 24 Transf (AST/SGO IU/L (15-46) T) Alanine 34 Aminotransferas IU/L (13-69) e (ALT/SGPT) Alkaline 99 Phosphatase IU/L (42-121) Total Protein 5.7 g/dl (6.1-8.1) Albumin 2.9 g/dl (3.3-4.9) Globulin 2.80 g/dl (1.3-3.2) Albumin/Globuli 1.03 n Ratio Thyroid 0.785 Stimulating MIU/L (0.465-4 Hormone (TSH) .680) LUCIANA FOREMAN MD Oct 15, 2018 14:43
[2018-10-15] MEDS ORDERED: ATORVASTATIN 20 MG TAB PO SCH (21:00)
== END 2018-10-15 17:43 | disposition home health service (06) | DRG 86 ==
LOC: TEL 19:08
PROVIDERS: ADMIT Internal Medicine; ATTEND Internal Medicine
DX: S06.351A Traumatic hemorrhage of left cerebrum with loss of consciousness of 30 minutes or less, initial encounter (principal); B02.8 Zoster with other complications; K51.90 Ulcerative colitis, unspecified, without complications; B02.29 Other postherpetic nervous system involvement; I10 Essential (primary) hypertension; I25.10 Atherosclerotic heart disease of native coronary artery without angina pectoris; E11.40 Type 2 diabetes mellitus with diabetic neuropathy, unspecified; D50.9 Iron deficiency anemia, unspecified; Z95.5 Presence of coronary angioplasty implant and graft; Z95.1 Presence of aortocoronary bypass graft; Z79.4 Long term (current) use of insulin; Z87.891 Personal history of nicotine dependence; W19.XXXA Unspecified fall, initial encounter; Y92.009 Unspecified place in unspecified non-institutional (private) residence as the place of occurrence of the external cause
CPT/HCPCS: 80053; 82962; 83036; 83735; 84100; 84443; 85025; 97161; J1815